=== PATIENT | female | born 1980 | race Caucasian/White ===

== ENCOUNTER 2016-09-26 15:39 | Emergency (ER) | payer BC ==
[~2016-09-26] VITALS: Ht 172.7 cm; Wt 104.6 kg
[~2016-09-26 15:39] MED LIST: ACEB200C; ACHD5005 PO; ALPR1T PO; AMOX500C2 PO; CARV12.53 PO; CARV3.122 PO; CARV6.252 PO; CEFD300C3 PO; CEPH-38 PO; CLIN300C3 PO; CLON0.5T3 PO; CLON1PAT14 TD; CLON1TAB3; CLON1TAB36 PO; CTLP20T PO; CTRZ10T PO; CYCL10TA9 PO; DILT240C86 PO; DIPH25TA82 PO; DIPH50CA33 PO; EST.625T PO; ESTR0.5T PO; ESTR0.9T; ESTR1TAB24 PO; FLUT16SP22; HYDR-1231 PO; HYDR-3583 PO; HYDR-3820 PO; HYDR-756 PO; HYOS0.1283 SL; ISOS30TA3 PO; LEVE500T6 PO; LEVE750T16 PO; LEVE750T5 PO; LEVO750T39 PO; LEVO750T9 PO; MELA1TAB11; METF500T8 PO; METO-274 PO; METO100T2 PO; METO200T32 PO; MIDO10TA6 PO; MONT10TA24 PO; MULT-35 PO; NITR-65 PO; OMEP20CA12 PO; ONDA4TAB2 PO; ONDA8TAB9 PO; ONDN4T PO; OXYC1TAB16 PO; PARO25TA PO; PHEN-633 PO; PHEN100C4 PO; PHEN200T27 PO; PHEN50TA PO; PRAM0.252 PO; PRD10T PO; PRD20T PO; PROM25TA14 PO; ROPI0.25 PO; RPN.25T PO; SALT TABLETS; SERT100T8 PO; SRTR100T PO; TRM50T PO; ZLP10T PO; ZOLP10TA5 PO; [UNRECOGNIZED DRUG - CODE] PO
[2016-09-26 15:53] VITALS: BP 115/85
--- NOTE | 2016-09-26 16:07 | ED Chest Pain ---
General Chief Complaint: Chest Pain Stated Complaint: CP,ELEVATED BLOOD PRESSURE Nursing Triage Note: pt reports cp and tachycardia starting at 1100 today. pt states she is in the process scheduling a 3rd ablation. Pt reports she took an extra beta tereso at home with no relief. Nursing Sepsis Screen: No Definite Risk Source: patient Exam Limitations: no limitations (FRANCA ANGUIANO MD) History of Present Illness Time seen by provider: 16:04 Initial Comments The patient is a 36-year-old white female from [place]. She presents today with complaints of tachycardia. There is also chest pain associated with it. She has had 24 previous visits to this institution. [facility] reveals medications from 29 providers over the past 11 months. These were filled at 10 different pharmacies. The locations ranged from [facility] and also [place] to [place] [facility]. Medications included benzodiazepines and hydrocodone and oxycodone multiply. From previous visits here she is known to have chronic sinus tachycardia. She allegedly takes beta blockers. (FRANCA ANGUIANO MD) Initial Comments 22 03-. Patient requesting to see a provider because she would need something to bring the heart rate down. I entered the room and the patient states that she will need an IV started so that she can have IV fluids and beta tereso. She took an oral beta tereso at home extra 50 mg dose of metoprolol which did not help. I advised that we would check labs first because she is a difficult stick. She states "well if you're not going to do anything just discharge me". I asked who the patient's gold prospector was so that I could discuss the case with him and she states "well he is not in this week". I then again asked who he was so that I could discuss the case with his nurse to which she replies "I don't want to deal with this, just discharge me" (ROSI MCGOWAN APRN) Allergies and Home Medications Allergies Coded Allergies: fludrocortisone (Unverified Allergy, Severe, CHF, 03/05/10) codeine (Unverified Allergy, Mild, 01/03/09) dicyclomine (Unverified Allergy, Mild, RASH, 03/05/10) erythromycin base (Unverified Allergy, Mild, 01/03/09) iodine (Unverified Allergy, Mild, 01/03/09) ketorolac (Unverified Allergy, Mild, RASH, 03/05/10) metoclopramide (Unverified Allergy, Mild, 01/03/09) pneumococcal vaccine (Unverified Allergy, Mild, 01/15/09) prochlorperazine (Unverified Allergy, Mild, 01/03/09) pseudoephedrine (Unverified Allergy, Mild, 01/15/09) dicyclomine HCl (Unverified Allergy, Unknown, 01/13/15) ibuprofen (Unverified Allergy, Unknown, 01/13/15) ketorolac tromethamine (Unverified Allergy, Unknown, 01/13/15) metoclopramide HCl (Unverified Allergy, Unknown, 01/13/15) prochlorperazine edisylate (Unverified Allergy, Unknown, 01/13/15) prochlorperazine maleate (Unverified Allergy, Unknown, 01/13/15) tramadol (Unverified Allergy, Unknown, 01/13/15) Home Medications Clonazepam 0.5 Mg Tablet, 0.5 MG PO BID PRN for ANXIETY, (Reported) Cyclobenzaprine HCl 10 Mg Tablet, 10 MG PO BID PRN for MUSCLE SPASMS, (Reported) Diltiazem HCl 180 Mg Capsule.er, 180 MG PO BID, (Reported) Diltiazem HCl 120 Mg Cap.er.12h, 120 MG PO DAILY, (Reported) Estradiol 0.5 Mg Tablet, 0.5 MG PO HS, (Reported) Hydrocodone/Acetaminophen 1 Each Tablet, 1 EACH PO Q6H PRN for ABDOMINAL PAIN, # 12 Ref 0 Prescribed by: MARIO ALBERTO RICHMOND on 03/09/16 0438 Metoprolol Succinate 100 Mg Tab.er.24h, 100 MG PO HS, (Reported) Montelukast Sodium 10 Mg Tablet, 10 MG PO HS, (Reported) Multivitamin 1 Each Tablet, 1 TAB PO DAILY, (Reported) Omeprazole 20 Mg Capsule.dr, 20 MG PO HS, (Reported) Paroxetine HCl 25 Mg Tab.er.24h, 25 MG PO HS, (Reported) Prednisone 10 Mg Tab, 40 MG PO DAILY, #12 Prescribed by: POLLO FORD on 01/26/16 1339 Promethazine HCl 25 Mg Tablet, 25 MG PO Q6H PRN for NAUSEA/VOMITING, #10 Ref 0 Prescribed by: MARIO ALBERTO RICHMOND on 03/09/16 0438 Ropinirole HCl 0.25 Mg Tablet, 0.25 MG PO HS, (Reported) Zolpidem Tartrate 10 Mg Tablet, 10 MG PO HS PRN for SLEEP, (Reported) Past Vygfivd-Bfgvqu-Oxfrqk Hx Patient Social History Recent Foreign Travel: No Contact w/Someone Who Travel: No Recent Infectious Disease Expo: No Recent Hopitalizations: No (FRANCA ANGUIANO MD) Immunizations Up To Date Tetanus Booster (TDap): Less than 5yrs Date of Pneumonia Vaccine: Jul 07, 2006 Date of Influenza Vaccine: Apr 06, 2013 (FRANCA ANGUIANO MD) Seasonal Allergies Seasonal Allergies: No (FRANCA ANGUIANO MD) Surgeries HX Surgeries: Yes (LEFT SHOULDER, ablation) Surgeries: Adenoidectomy, Appendectomy, Gallbladder, Hysterectomy, Oophorectomy , Orthopedic, Tonsillectomy (FRANCA ANGUIANO MD) Respiratory Hx Respiratory Disorders: Yes Respiratory Disorders: Asthma (FRANCA ANGUIANO MD) Cardiovascular Hx Cardiac Disorders: Yes (SVT-ablation) Cardiac Disorders: Irregular Heartbeat, Syncope (FRANCA ANGUIANO MD) Neurological Hx Neurological Disorders: No (FRANCA ANGUIANO MD) Reproductive System Hx Reproductive Disorders: No Sexually Transmitted Disease: No HIV/AIDS: No Female Reproductive Disorders: Endometriosis MD PHYSICIAN DERMATOLOGIST History: Hysterectomy (FRANCA ANGUIANO MD) Genitourinary Hx Genitourinary Disorders: No Genitourinary Disorders: Kidney Infection, Bladder Infection, Kidney Stones, UTI-Chronic (FRANCA ANGUIANO MD) Gastrointestinal Hx Gastrointestinal Disorders: Yes (ULCERATIVE COLITIS) Gastrointestinal Disorders: Chronic Diarrhea (FRANCA ANGUIANO MD) Musculoskeletal Hx Musculoskeletal Disorders: Yes (SRAVANTHI-DANLOS, DYSAUTONOMIA, RESTLESS LEG SYNDROME) (FRANCA ANGUIANO MD) Endocrine Hx Endocrine Disorders: No Endocrine Disorders: Diabetes, Non-Insulin dep (FRANCA ANGUIANO MD) HEENT HX ENT Disorders: Yes (DENTAL PROBLEMS) (FRANCA ANGUIANO MD) Cancer Hx Cancer: No (FRANCA ANGUIANO MD) Psychosocial Hx Psychiatric Problems: Yes (EXTENSIVE PSYCH ISSUES) Behavioral Health Disorders: Anxiety, PTSD, Depression (FRANCA AGNUIANO MD) Integumentary HX Skin/Integumentary Disorder: No (FRANCA ANGUIANO MD) Blood Transfusions Hx Blood Disorders: No Adverse Reaction to a Blood Tr: No (FRANCA ANGUIANO MD) Family Medical History Significant Family History: No Pertinent Family Hx, Diabetes, Hypertension Family Medial History: Family history: Arthritis 03 FATHER Family history: Diabetes mellitus 09 SISTER Family history: Osteoporosis 03 FATHER (GOUT) Headache 03 FATHER Infertile 03 MOTHER (FIRST CHILD WAS A STILL ) Kidney disease 03 FATHER (CHRONIC KIDNEY STONES) Psychotic disorder 09 SISTER No Family History of: Abdominal aortic aneurysm [place]'s disease Alcoholism Aphasia Cancer Cancer of colon Cataract Chest pain Congenital heart disease Congestive heart failure Cystic fibrosis Dementia Dysphagia Family history: Allergy Family history: Alzheimer's disease Family history: Asthma Family history: Breast disease Family history: Cardiovascular disease Family history: Coronary thrombosis Family history: Gastrointestinal disease Family history: Glaucoma Family history: Hypertension Family history: Thyroid disorder Hearing loss Heart disease Hereditary disease History of - anemia History of - disorder History of - respiratory disease History of drug abuse Human immunodeficiency virus (HIV) seropositivity Hypercholesterolemia Myocardial infarction Parkinson's disease Prostate cancer Stroke Tuberculosis Visual impairment (FRANCA ANGUIANO MD) Family Medial History: Family history: Arthritis 03 FATHER Family history: Diabetes mellitus 09 SISTER Family history: Osteoporosis 03 FATHER (GOUT) Headache 03 FATHER Infertile 03 MOTHER (FIRST CHILD WAS A STILL ) Kidney disease 03 FATHER (CHRONIC KIDNEY STONES) Psychotic disorder 09 SISTER No Family History of: Abdominal aortic aneurysm [place]'s disease Alcoholism Aphasia Cancer Cancer of colon Cataract Chest pain Congenital heart disease Congestive heart failure Cystic fibrosis Dementia Dysphagia Family history: Allergy Family history: Alzheimer's disease Family history: Asthma Family history: Breast disease Family history: Cardiovascular disease Family history: Coronary thrombosis Family history: Gastrointestinal disease Family history: Glaucoma Family history: Hypertension Family history: Thyroid disorder Hearing loss Heart disease Hereditary disease History of - anemia History of - disorder History of - respiratory disease History of drug abuse Human immunodeficiency virus (HIV) seropositivity Hypercholesterolemia Myocardial infarction Parkinson's disease Prostate cancer Stroke Tuberculosis Visual impairment (ROSI MCGOWAN APRN) Physical Exam Vital Signs Vital Sign - Last 12Hours 09/26/16 09/26/16 15:53 16:00 Temp 97.3 Pulse 127 Resp 20 B/P (MAP) 115/85 Pulse Ox 96 O2 Delivery Room Air (ROSI MCGOWAN APRN) Vital Signs Capillary Refill : Less Than 3 Seconds (FRANCA ANGUIANO MD) Progress/Results/Core Measures Results/Orders Lab Results Laboratory Tests Test 09/26/16 15:54 Range/Units White Blood Count 9.6 4.3-11.0 10^3/uL Red Blood Count 5.32 4.35-5.85 10^6/uL Hemoglobin 12.7 11.5-16.0 G/DL Hematocrit 40 35-52 % Mean Corpuscular Volume 74 L 80-99 FL Mean Corpuscular Hemoglobin 24 L 25-34 PG Mean Corpuscular Hemoglobin Concent 32 32-36 G/DL Red Cell Distribution Width 15.3 H 10.0-14.5 % Platelet Count 376 130-400 10^3/uL Mean Platelet Volume 9.5 7.4-10.4 FL Neutrophils (%) (Auto) 64 42-75 % Lymphocytes (%) (Auto) 27 12-44 % Monocytes (%) (Auto) 6 0-12 % Eosinophils (%) (Auto) 2 0-10 % Basophils (%) (Auto) 0 0-10 % Neutrophils # (Auto) 6.2 1.8-7.8 X 10^3 Lymphocytes # (Auto) 2.6 1.0-4.0 X 10^3 Monocytes # (Auto) 0.6 0.0-1.0 X 10^3 Eosinophils # (Auto) 0.2 0.0-0.3 10^3/uL Basophils # (Auto) 0.0 0.0-0.1 10^3/uL Sodium Level 139 135-145 MMOL/L Potassium Level 3.7 3.6-5.0 MMOL/L Chloride Level 100 98-107 MMOL/L Carbon Dioxide Level 26 21-32 MMOL/L Anion Gap 13 5-14 MMOL/L Blood Urea Nitrogen 10 7-18 MG/DL Creatinine 0.79 0.60-1.30 MG/DL Estimat Glomerular Filtration Rate > 60 BUN/Creatinine Ratio 13 Glucose Level 128 H 70-105 MG/DL Calcium Level 9.5 8.5-10.1 MG/DL Total Bilirubin 0.2 0.1-1.0 MG/DL Aspartate Amino Transf (AST/SGOT) 19 5-34 U/L Alanine Aminotransferase (ALT/SGPT) 28 0-55 U/L Alkaline Phosphatase 68 40-136 U/L Troponin I < 0.30 <0.30 NG/ML Total Protein 7.6 6.4-8.2 G/DL Albumin 4.0 3.2-4.5 G/DL (ROSI MCGOWAN APRN) Vital Signs/I&O Vital Sign - Last 12Hours 09/26/16 09/26/16 15:53 16:00 Temp 97.3 Pulse 127 Resp 20 B/P (MAP) 115/85 Pulse Ox 96 O2 Delivery Room Air (ROSI MCGOWAN APRN) Blood Pressure Mean: 95 Departure Impression Impression: Primary Impression: Left against medical advice Disposition: 07 AGAINST MEDICAL ADVICE Condition: Against Medical Advice Departure-Patient Inst. Referrals: NO,LOCAL PHYSICIAN (PCP/Family) Primary Care Physician FRANCA ANGUIANO MD Sep 26, 2016 16:07 ROSI MCGOWAN APRN Sep 26, 2016 16:11
[2016-09-26] MEDS ORDERED: DILT180C82 PO (16:11)
[2016-09-26] MEDS ORDERED: DILT120C10 PO (16:11)
[2016-09-26 16:12] LABS: BASOPHILS % (AUTO) 0 % (0-10); EOSINOPHILS # (AUTO) 0.2 10^3/uL (0.0-0.3); EOSINOPHILS % (AUTO) 2 % (0-10); LYMPHOCYTES # (AUTO) 2.6 X 10^3 (1.0-4.0); LYMPHOCYTES % (AUTO) 27 % (12-44); MEAN CORPUSCULAR HEMOGLOBIN 24 PG (25-34); MEAN CORPUSCULAR HGB CONC 32 G/DL (32-36); MEAN CORPUSCULAR VOLUME 74 FL (80-99); MEAN PLATELET VOLUME 9.5 FL (7.4-10.4); MONOCYTES # (AUTO) 0.6 X 10^3 (0.0-1.0); MONOCYTES % (AUTO) 6 % (0-12); NEUTROPHILS # (AUTO) 6.2 X 10^3 (1.8-7.8); NEUTROPHILS % (AUTO) 64 % (42-75); PLATELET COUNT 376 10^3/uL (130-400); RED BLOOD COUNT 5.32 10^6/uL (4.35-5.85); RED CELL DISTRIBUTION WIDTH 15.3 % (10.0-14.5); WHITE BLOOD COUNT 9.6 10^3/uL (4.3-11.0)
[2016-09-26 16:32] LABS: ALANINE AMINOTRANSFERASE 28 U/L (0-55); ANION GAP 13 MMOL/L (5-14); ASPARTATE AMINO TRANSFERASE 19 U/L (5-34); BILIRUBIN,TOTAL 0.2 MG/DL (0.1-1.0); BLOOD UREA NITROGEN 10 MG/DL (7-18); BUN/CREATININE RATIO 13; CALCIUM 9.5 MG/DL (8.5-10.1); CARBON DIOXIDE 26 MMOL/L (21-32); CHLORIDE 100 MMOL/L (98-107); CREATININE SERUM 0.79 MG/DL (0.60-1.30); GFR ESTIMATED > 60; GLUCOSE 128 MG/DL (70-105); POTASSIUM 3.7 MMOL/L (3.6-5.0); SODIUM 139 MMOL/L (135-145); TOTAL PROTEIN 7.6 G/DL (6.4-8.2)
[2016-09-26 16:38] LABS: TROPONIN I < 0.30 NG/ML (<0.30)
--- OUTSIDE RECORDS SUMMARY | 2016-09-29 10:16 | XMS REPORT | CCD ---
Author Author JASKARAN SNOWDEN Unknown Address [address] [address] [place], [place] [id number] Care Team Providers Care Safety And Security Manager Name Role Phone LAUREN GARG MD Attphys LAUREN GARG MD Prisurg Vital Signs Unknown or Not Available. Allergies Allergy Code Allergy Type Reaction Status ERYTHROMYCIN 4053 Drug allergy Active COMPAZINE 474496 Drug allergy Active NSAID 0 Drug allergy Active IODINE 5933 Drug allergy Active CODEINE 2670 Drug allergy Active REGLAN 9230 Drug allergy Active Procedures Procedure Code Procedure Type Date CT ABD AND PELVIS W/O CONTRAST 291212738 SNOMED CT 2015 CULTURE URINE 152254535 SNOMED CT 02/15/2016 RAPID DRUG SCREEN 265445508 SNOMED CT 02/15/2016 UA ROUTINE C&S IF IND 323269572 SNOMED CT 02/15/2016 C REACTIVE PROTEIN 93489769 SNOMED CT 02/15/[address] 02/15/[address] 02/15/2016 COMPREHENSIVE METABOLIC PANEL 079076508 SNOMED CT 2015 CBC W/ AUTO DIFF (RFLX MAN DIFF IF IND) 2592420 SNOMED CT 02/15/2016 ^CULTURE AEROBIC ID [id number] SNOMED CT 02/15/2016 ^CULTURE AEROBIC ID [id number] SNOMED CT 02/15/2016 ^SENSITIVITY 734087530 SNOMED CT 02/15/2016 ^CULTURE URINE IDENTIFICATION 825386014 SNOMED CT 2015 ^UA WITH MICRO 749199290 SNOMED CT 02/15/2016 ^CBC W/AUTO DIFF 9368854 SNOMED CT 02/15/2016 History of Immunizations Unknown or Not Available. Problems Unknown or Not Available. Results COMPREHENSIVE METABOLIC PANEL - Collect Date/Time: 02/15/2016 22:15 Test Name Code Test Result Test Units Test Ref Range GLUCOSE 2345-7 115 MG/DL L=70 H=100 SODIUM 2951-2 141 MEQ/L L=135 H=148 POTASSIUM 2823-3 4.3 MEQ/L L=3.5 H=5.3 CHLORIDE 2075-0 106 MEQ/L L=96 H=110 CO2 2028-9 21 MEQ/L L=22 H=29 BUN 3094-0 12 MG/DL L=8 H=22 CREATININE 2160-0 0.8 MG/DL L=0.6 H=1.6 SGOT/AST 1920-8 33 IU/L L=10 H=40 SGPT/ALT 1742-6 52 IU/L L=8 H=54 ALK PHOS 6768-6 78 IU/L L=35 H=115 TOTAL PROTEIN 2885-2 7.4 G/DL L=5.5 H=8.5 ALBUMIN 1751-7 4.1 G/DL L=3.1 H=5.4 TOTAL BILI 1975-2 0.2 MG/DL L=0.0 H=1.5 CALCIUM 53009-6 9.3 MG/DL L=8.2 H=10.6 AGE 35 yrs GFR NonAA 83 GFR AA 101 eGFR >60 N/A eGFR AA* >60 N/A LIPASE - Collect Date/Time: 02/15/2016 22:15 Test Name Code Test Result Test Units Test Ref Range LIPASE 3040-3 47 U/L L=8 H=78 RAPID DRUG SCREEN - Collect Date/Time: 02/15/2016 22:16 Test Name Code Test Result Test Units Test Ref Range Cannabinoids (THC) NEGATIVE N/A NEG: < 50 ng/ ml Phencyclidine (PCP) NEGATIVE N/A NEG: < 25 ng/ ml Cocaine NEGATIVE N/A NEG: < 300 ng/ml Methamphetamine NEGATIVE N/A NEG: < 1000 ng/ml Opiates NON-NEGATIVE N/A NEG: < 300 ng/ml Amphetamine NEGATIVE N/A NEG: < 1000 ng/ml Benzodiazepines NON-NEGATIVE N/A NEG: < 300 ng/ ml Tricyclic Antidepres NON-NEGATIVE N/A NEG: < 300 ng/ml Methadone NEGATIVE N/A NEG: < 300 ng/ml Barbiturates NEGATIVE N/A NEG: < 200 ng/ml Oxycodone NEGATIVE N/A NEG: < 100 ng/ml Propoxyphene (PPX) NEGATIVE N/A NEG: < 300 ng/ ml CBC W/ AUTO DIFF (RFLX MAN DIFF IF IND) - Collect Date/Time: 02/15/2016 22:15 Test Name Code Test Result Test Units Test Ref Range WBC 92416-2 11.9 TH/CMM L=4.5 H=10.8 RBC 789-8 5.07 ML/CMM L=4.20 H=5.40 HGB 718-7 11.1 G/DL L=12.0 H=16.0 HCT 4544-3 36.9 % L=37.0 H=47.0 MCV 73 FL L=81 H=99 MCH 21.9 PG L=27.0 H=33.0 MCHC 30.1 G/DL L=31.0 H=36.0 RDW SD 39 FL L=36 H=50 RDW CV 16.3 % L=0.0 H=14.8 MPV 9.1 FL L=9.3 H=12.5 PLT 777-3 423 TH/CMM L=130 H=440 NRBC# 0.00 TH/CMM L=0.00 H=0.00 NRBC% 0.0 /100WBC L=0.0 H=2.0 %NEUT 64.7 % %LYMP 25.1 % %MONO 7.6 % %EOS 1.4 % %BASO 0.3 % #NEUT 7.68 TH/CMM L=2.10 H=8.20 #LYMP 2.98 TH/CMM L=0.90 H=5.20 #MONO 0.90 TH/CMM L=0.16 H=1.00 #EOS 0.17 TH/CMM L=0.00 H=0.80 #BASO 0.04 TH/CMM L=0.00 H=0.20 MANUAL DIFF NOT IND N/A UA ROUTINE C&S IF IND - Collect Date/Time: 02/15/2016 22:16 Test Name Code Test Result Test Units Test Ref Range COLOR YELLOW N/A NL: YELLOW APPEARANCE HAZY N/A NL: CLEAR SPEC GRAV 1.015 N/A NL: 1.002 - 1.022 pH 7.0 N/A NL: 5 - 9 PROTEIN NEGATIVE N/A NL: NEGATIVE mg/dl GLUCOSE NEGATIVE N/A NL: NEGATIVE mg/dl KETONE NEGATIVE N/A NL: NEGATIVE mg/dl BILIRUBIN NEGATIVE N/A NL: NEGATIVE BLOOD SMALL N/A NL: NEGATIVE NITRITE POSITIVE N/A NL: NEGATIVE LEUK SCREEN TRACE N/A NL: NEGATIVE MICRO INDICATED? SEE BELOW N/A WBC/HPF RARE N/A NL: NEGATIVE RBC/HPF 0-5 N/A NL: NEGATIVE CASTS/LPF NEGATIVE N/A NL: NEGATIVE CRYSTALS NEGATIVE N/A NL: NEGATIVE MUCOUS THRDS NEGATIVE N/A NL: NEGATIVE BACTERIA 2++ N/A NL: NEGATIVE EPITH CELLS FEW SQUAMOUS N/A NL: NEGATIVE TRICHOMONAS NEGATIVE N/A NL: NEGATIVE YEAST NEGATIVE N/A NL: NEGATIVE CULT SET UP? YES N/A C REACTIVE PROTEIN - Collect Date/Time: 02/15/2016 22:15 Test Name Code Test Result Test Units Test Ref Range C REACTIVE PROTEIN 1988-5 1.9 MG/DL L=0.0 H= 1.0 AMYLASE - Collect Date/Time: 02/15/2016 22:15 Test Name Code Test Result Test Units Test Ref Range AMYLASE 1798-8 54 IU/L L=25 H=125 Active Medications Unknown or Not Available. Medications Administered During Visit Unknown or Not Available. Encounters Encounter Diagnosis Diagnosis Code Start Date Infectious gastroenteritis [id number] 02/15/2016 Social History Smoking Status Code Start Date End Date Never smoker [id number] Patient Decision Aids Unknown or Not Available. Discharge Instructions You were admitted to [facility] on 02/15/2016 21:34 with a principal diagnosis of Infectious gastroenteritis and colitis, unspecified You had the following tests done: AMYLASE C REACTIVE PROTEIN CBC W/ AUTO DIFF (RFLX MAN DIFF IF IND) COMPREHENSIVE METABOLIC PANEL LIPASE RAPID DRUG SCREEN UA ROUTINE C &S IF IND You were discharged from [facility] on 02/16/2016 00:57 Should you have any questions prior to discharge, please contact a member of your healthcare team. If you have left the hospital and have any questions, please contact your primary care physician. Chief Complaint and Reason For Visit Chief Complaint Date of Onset ABD PAIN NAUSEA VOMITING Function Status Unknown or Not Available. Plan of Care Unknown or Not Available. Referral/Transition of Care Unknown or Not Available.
--- OUTSIDE RECORDS SUMMARY | 2016-09-29 10:16 | XMS REPORT | Continuity of Care Document ---
Author Author [facility] Organization [facility] Address Unknown Phone Unavailable Care Team Providers Care Engine Testing Supervisor Name Role Phone No Pcp, Na PCP Unavailable Source Comments Some departments are not documenting in the electronic medical record. If you do not see the information that you expected, contact Release of Information in the Health Information Management department at [phone] for further assistance in locating additional records.[facility] Active Allergies and Adverse Reactions Allergen Noted Date Severity Reactions Comments Bentyl 07/31/2015 Low UNKNOWN Codeine 07/31/2015 Low UNKNOWN Compazine 07/31/2015 Low UNKNOWN Erythromycin 07/31/2015 Low NAUSEA ONLY Florinef 07/31/2015 Low UNKNOWN Pt can take Prednisone; has tolerated many times in the past Iodine 07/31/2015 Low UNKNOWN Reglan 07/31/2015 Low UNKNOWN Sudafed 07/31/2015 Low UNKNOWN Toradol 07/31/2015 Low UNKNOWN Tramadol 07/31/2015 Medium RASH Current Medications Prescription Sig. Disp. Refills Start End Date Status Date estradiol (ESTRACE) 0.5 Take 0.5 mg by mouth at Active mg tablet bedtime daily. montelukast (SINGULAIR) Take 10 mg by mouth every Active 10 mg tablet morning. rOPINIRole (REQUIP) 0.25 Take 0.25 mg by mouth at Active mg tablet bedtime daily. PAROXETINE HCL (PAXIL CR Take 20 mg by mouth Active PO) daily. OMEPRAZOLE (PRILOSEC PO) Take by mouth daily. Active ferrous sulfate 325 mg Take 325 mg by mouth Active (65 mg iron) tablet daily. Take 1daily for 1 week, twice daily for 1 week, then 3 times daily. Take w/food. If GI symptoms, cut back to once or twice daily as tolerated. CYCLOBENZAPRINE HCL Take 20 mg by mouth as Active (FLEXERIL PO) Needed. zolpidem (AMBIEN) 5 mg Take 1 Tab by mouth at 30 Tab 1 11/28/19 Active tablet bedtime as needed for 16 Sleep. oxyCODONE/acetaminophen Take 1 Tab by mouth every 20 Tab 0 05/17/20 Active (PERCOCET) 5/325 mg 6 hours as needed for 16 tablet Pain diltiazem CD (CARDIZEM Take 120 mg by mouth Active CD) 120 mg capsule daily. diltiazem CD (CARDIZEM One tab po every am, one Active CD) 180 mg capsule tab po every pm with Cardizem CD 120 every lunch metoprolol XL (TOPROL XL) Take 100 mg by mouth Active 100 mg extended release twice daily. tablet metoprolol tartrate Take 1 Tab by mouth twice 60 Tab 2 06/10/20 Active (LOPRESSOR) 50 mg tablet daily as needed (take if 16 symptoms occur after taking already scheduled Toprol XL). Active Problems Problem Noted Date S/P adenoidectomy 09/11/2015 S/P appendectomy 09/11/2015 S/P cholecystectomy 09/11/2015 S/P tonsillectomy 09/11/2015 History of arthroplasty of left knee 09/11/2015 S/P hysterectomy 09/11/2015 POTS (postural orthostatic tachycardia syndrome) 09/11/2015 Neurologic cardiac syncope 09/11/2015 Overview: 09/11/15: Tilt study positive-hypotension (60 systolic), junctional at 48, near LOC Inappropriate sinus tachycardia 08/10/2015 Dysautonomia Restless leg syndrome Post traumatic stress disorder Hyperlipidemia Resolved Problems Problem Noted Date Resolved Date H/O hypotension 10/12/2015 Allergic rhinitis 10/12/2015 Most Recent Encounters Date Type Specialty Providers Description 09/23/2016 Telephone Cardiology Claudia Chávez RN Referral - [place] 09/16/2016 Telephone Cardiology Bri Jasso, General Question - [place] RN denied help 09/04/2016 Documentation Cardiology Jennifer Lazo Referral - [facility] 09/03/2016 Documentation Cardiology Jennifer Lazo Referral - at [facility] 09/02/2016 Telephone Cardiology Claudia Chávez RN 08/27/2016 Orders Only Cardiology Valentino Gil RN Mixed hyperlipidemia (Primary Dx); Inappropriate sinus tachycardia; POTS (postural orthostatic tachycardia syndrome); Neurologic cardiac syncope; Dysautonomia 08/22/2016 Telephone Cardiology Aure Shahid LPN Referral - Needs referral to [facility] 08/19/2016 Telephone Cardiology Bryanna Ortega RN Referral - pain management 08/16/2016 Telephone Cardiology Jennifer Lazo Appointment - Referral faxed 08/15/2016 Telephone Cardiology Aure Shahid LPN Referral - [facility] 08/15/2016 Documentation Cardiology Adriana Baker RN Referral - Pt requesting referral to pain spec in [place] 07/23/2016 Surgery Cardiology Ana Yates MD Canceled Insert Permanent Pacemaker and Atrial and Ventricular Leads 07/23/2016 Surgery Cardiology Ana Yates MD Canceled Sinus Node Radiofrequency Ablation 07/21/2016 Telephone Cardiology Yoli Mackenzie RN Rapid Heart Rate - "unable to stand up" 07/17/2016 Documentation Cardiology Jennifer Lazo Other - Referral to [facility]. Devon Norman in [facility] 07/17/2016 Documentation Cardiology Lindsay Livingston RN Other - Plan of care 07/11/2016 Telephone Cardiology Aure Shahid LPN Follow-up Phone Call Social History Tobacco Use Types Packs/Day Years Used Date Never Smoker Alcohol Use Drinks/Week oz/Week Comments No 0 Standard 0.0 drinks or equivalent Last Filed Vital Signs Vital Sign Reading Time Taken Blood Pressure 108/78 05/17/2016 1:39 PM MARKETING MGR Pulse 96 05/17/2016 1:39 PM MARKETING MGR Temperature 36.8 C (98.2 F) 02/08/2016 10:11 AM CDT Respiratory Rate - - Height 1.753 m (5' 9") 05/17/2016 1:39 PM MARKETING MGR Weight 106.323 kg (234 lb 6.4 05/17/2016 1:39 PM MARKETING MGR oz) Body Mass Index 34.6 05/17/2016 1:39 PM MARKETING MGR Oxygen Saturation 98% 02/08/2016 6:51 AM CDT Plan of Care Health Maintenance Due Date Last Done Comments Physical (Comprehensive) 1989 Exam Pertussis Vaccine 1993 Tetanus Vaccine 1999 Cervical Cancer Screening 2003 Influenza Vaccine 03/07/2017 Results from Last 3 Months Not on file
--- OUTSIDE RECORDS SUMMARY | 2016-09-29 10:17 | XMS REPORT | Continuity of Care Document ---
Author Author [facility] Organization [facility] Address [facility] [address] [place] [id number] Phone Unavailable Support Name Relationship Address Phone ARNALDO PERALTA DO Caregiver [address] [place] [address] Unavailable RAAD RALPH Next Of Kin [address] [place] [address] Insurance Providers Payer Name Policy Number Subscriber Name Relationship [facility] [id number] Valentin Ralph 18 Self / Same As Patient Advance Directives Directive Response Recorded Date/Time Do you have an Advanced Directive? No 10/01/15 4:16pm Advance Directives No 10/27/15 3:58pm Living Will No 10/27/15 3:58pm Power of Medical Editor for Health Care No 10/27/15 3:58pm Organ, Tissue, or Eye Donor Yes 12/27/15 7:21pm Do you have a signed organ donor card? No 10/27/15 3:58pm Chief Complaint and Reason for Visit Chief Complaint ABDOMINAL PAIN Reason for Visit [id number] Problems Active Problems Medical Problem Onset Date Status Chest pain Unknown Acute Gastroenteritis Unknown Acute Hematuria Unknown Acute Insect bite (nonvenomous) of right forearm, initial encounter Unknown Acute Kidney stone on left side Unknown Acute Left against medical advice Unknown Acute Left flank pain Unknown Acute Nausea and vomiting Unknown Acute Nonspecific chest pain Unknown Acute Palpitations Unknown Acute Postprocedural pain of extremity following cardiac catheterization Unknown Acute Precordial chest pain Unknown Acute Sinus drainage Unknown Acute Sinus tachycardia Unknown Acute Syncope Unknown Acute Tachycardia Unknown Acute Ulcerative colitis Unknown Acute Medications Current Home Medications Medication Dose Units Route Directions Days/Qty Instructions Start Date Ropinirole Hcl 0.25 Mg 0.25 Mg Oral Bedtime 09/17/15 Montelukast Sodium 10 Mg 10 Mg Oral Bedtime 09/17/15 Paroxetine Hcl 25 Mg 25 Mg Oral Bedtime 09/17/15 Estradiol 2 Mg 0.5 Mg Oral Bedtime 09/17/15 Metoprolol Succinate 100 Mg 150 Mg Oral Bedtime 10/23/15 Diltiazem Hcl 180 Mg 180 Mg Oral Twice A Day 09/21/16 Cyclobenzaprine Hcl (Flexeril*) 10 Mg 10 Mg Oral Twice A Day Clonazepam 0.5 Mg 0.5 Mg Oral Twice A Day 09/21/16 Hydrochlorothiazide 25 Mg 12.5 Mg Oral Daily 09/21/16 Diltiazem Hcl 120 Mg 120 Mg Oral Noon 09/21/16 Past Home Medications Medication Directions Ordered Status Metoprolol Succinate 200 Mg Tab.sr.24h, 200 Mg Oral Bedtime 09/17/15 Discontinued Metoprolol Tartrate 25 Mg Tab, 50 Mg Oral Daily 09/17/15 Discontinued Mesalamine 0.375 Gm Cap.sr.24h, 2 Cap Oral Daily 09/30/15 Discontinued Metoprolol Succinate 100 Mg Tab.sr.24h, 100 Mg Oral Daily 10/02/15 Discontinued Metoprolol Tartrate 100 Mg Tablet, 100 Mg Oral Twice A Day 10/02/15 Discontinued Tramadol Hcl 50 Mg Tablet, 50 Mg Oral Every 6 Hours 10/02/15 Discontinued Meloxicam 15 Mg Tablet, 15 Mg Oral Daily as needed for Pain 10/14/15 Discontinued Ondansetron* 4 Mg/Tab Tab.rapdis, 4 Mg Oral Every 6 Hours as needed for Nausea /Vomiting 10/14/15 Discontinued Metoprolol Tartrate 100 Mg Tablet, 100 Mg Oral Daily 10/23/15 Discontinued Mesalamine 0.375 Gm Cap.sr.24h, 0.375 Gm Oral Twice A Day 10/23/15 Discontinued Omeprazole 20 Mg Capsule.dr, 20 Mg Oral Every Morning 10/27/15 Discontinued Ondansetron* 4 Mg/Tab Tab.rapdis, 4 Mg Oral Every 6 Hours As Needed Nausea Discontinued Acetaminophen/Hydrocodone Bitart (Lortab 7.5-325 Tab*) 1 Tab Tablet, 1 Each Oral Every 6 Hrs As Needed For Pain 10/27/15 Discontinued Verapamil Hcl 40 Mg Tab, 40 Mg Oral Three Times A Day 11/01/15 Discontinued Diltiazem Hcl 120 Mg Cap.sr.24h, 120 Mg Oral Daily 12/07/15 Discontinued Ondansetron* 4 Mg/Tab Tab.rapdis, 4 Mg Oral Every 6 To 8 Hours As Needed as needed for Nausea 12/07/15 Discontinued Promethazine Hcl 25 Mg Tablet, 25 Mg Oral Every 6 Hours as needed for Nausea 12/27/15 Discontinued Promethazine Hcl 25 Mg Tablet, 25 Mg Oral 2-3 Times Daily for Nausea Discontinued Metoprolol Tartrate 100 Mg Tablet, 100 Mg Oral Twice A Day 01/02/16 Discontinued Metoprolol Tartrate (Lopressor*) 50 Mg Tab, 50 Mg Oral As Needed for High Heart Rate 01/02/16 Discontinued Acetaminophen/Hydrocodone Bitart (Lortab 5-325*) 1 Tab Tablet, 1 Each Oral Every 6 Hrs As Needed For Pain 01/02/16 Discontinued Ondansetron Hcl 4 Mg/5 Ml Solution, 4 Mg Oral Three Times A Day for Nausea/ Vomiting 02/15/16 Discontinued Mesalamine 0.375 Gm Cap.sr.24h, 0.375 Mg Oral Daily 02/25/16 Discontinued Ondansetron* 4 Mg/Tab Tab.rapdis, 8 Mg Oral Three Times A Day as needed for Nausea 02/25/16 Discontinued Phenazopyridine Hcl 200 Mg Tablet, 200 Mg Oral Three Times A Day 08/14/16 Discontinued Social History Social History Problem Response Recorded Date/Time Smoking Status Never smoker 10/27/2015 7:06pm Tobacco Use Denies Use 08/11/2012 10:08pm Alcohol Use none 09/21/2016 12:38am Drug Use none 09/21/2016 12:38am Sexual History Heterosexual 09/30/2015 8:47pm Query Response Start Date Stop Date Smoking Status Never smoker Hospital Discharge Instructions No hospital discharge instructions. Plan of Care Discharge Date 09/21/16 12:33am Condition at Discharge Stable Prescriptions See Medication Section Functional Status Query Response Date Recorded Patient Behavior Anxious September 21, 2016 12:06am Allergies, Adverse Reactions, Alerts Allergen Type Severity Reaction Status Last Updated PROCHLORPERAZINE EDISYLATE Adverse Reaction Unknown HALLUCINATIONS Active 06/16/16 PROMETHAZINE HCL Adverse Reaction Unknown supp. route only Active 06/16/16 DICYCLOMINE HCL Adverse Reaction Mild STOMACH CRAMPING Active 06/16/16 KETOROLAC TROMETHAMINE Allergy Mild RASH Active 06/16/16 NSAIDS (NON-STEROIDAL ANTI-INFLAMMA Allergy Unknown Active 06/16/16 Iodine Allergy Mild RASH Active 06/16/16 Codeine Allergy Unknown Active 06/16/16 Ibuprofen Allergy Mild RASH Active 06/16/16 Erythromycin base Allergy Mild RASH Active 06/16/16 Tramadol Allergy Mild RASH Active 06/16/16 Metoclopramide Allergy Unknown Active 06/16/16 [place] Allergy Intermediate HIVES Active 06/16/16 SHELLFISH DERIVED Allergy Unknown Active 06/16/16 Immunizations Name Given Type Hx Diphtheria, Pertussis, Tetanus Vaccination Up To Date Historical Hx Influenza Vaccination Yes Historical Hx Pneumococcal Vaccination No Historical Hx Tetanus, Diphtheria Vaccination Y within last 4 years Historical Vital Signs Acute Vital Signs Vital Response Date/Time Temperature (Fahrenheit) 97.8 degrees F (97.6 - 99.5) 09/21/2016 12:10am Temperature Source Temporal Artery 09/21/2016 12:10am Pulse Rate (adult) 116 bpm (60 - 90) 09/21/2016 12:25am Respiratory Rate 18 bpm (12 - 24) 09/21/2016 12:10am Blood Pressure 111/83 mm Hg 09/21/2016 12:25am O2 Sat by Pulse Oximetry 98 % (90 - 100) 09/21/2016 12:25am Oxygen Delivery Method 09/21/2016 12:25am Pain Location Body Site Modifier 08/14/2016 5:53am Height 5 ft 8 in Weight 250 lb Body Mass Index 38.0 kg/m^2 Results Laboratory Results Test Name Result Units Flags Reference Collection Date/Time Result Date/ Time Comments Urine Color YELLOW YELLOW 07/15/2016 7:10pm 07/15/2016 7:45pm Urine Appearance CLOUDY H CLEAR 07/15/2016 7:10pm 07/15/2016 7:45pm Urine Glucose (UA) NEGATIVE mg/dL NEGATIVE 07/15/2016 7:10pm 2016 7:45pm Urine Bilirubin NEGATIVE NEGATIVE 07/15/2016 7:10pm 07/15/2016 7: 45pm Urine Ketones NEGATIVE mg/dL NEGATIVE 07/15/2016 7:10pm 07/15/2016 7: 45pm Urine Specific [place] 1.010 1.010-1.025 07/15/2016 7:10pm 2016 7:45pm Urine Occult Blood 3+ (Large) H NEGATIVE 07/15/2016 7:10pm 07/15/2016 7:45pm URINE CULTURE ORDERED PER MEDICAL STAFF-APPROVED PROTOCOL FOR LAB. Urine pH 8.0 5.0-8.0 07/15/2016 7:10pm 07/15/2016 7:45pm Urine Protein NEGATIVE mg/dL NEGATIVE 07/15/2016 7:10pm 07/15/2016 7: 45pm Urine Urobilinogen 0.2 mg/dL E.U./dL 0.2-1.0 07/15/2016 7:10pm 2016 7:45pm Urine Nitrate NEGATIVE NEGATIVE 07/15/2016 7:10pm 07/15/2016 7:45pm Urine Leukocyte Esterase TRACE H NEGATIVE 07/15/2016 7:10pm 2016 7:45pm Urine RBC 50+ /hpf H 0 07/15/2016 7:10pm 07/15/2016 7:48pm Urine WBC 1-2 /hpf 0-4 07/15/2016 7:10pm 07/15/2016 7:48pm Urine Squamous Epithelial Cells 3-5 /hpf 0-1 07/15/2016 7:10pm 2016 7:48pm Urine Bacteria TRACE NEGATIVE 07/15/2016 7:10pm 07/15/2016 7:48pm Pending Laboratory Results Test Name Collection Date/Time Procedures Procedure Status Date Provider(s) Computed tomography of abdomen and pelvis without contrast Active 07/15/16 BELLE LE D.O. Computed tomography of abdomen and pelvis without contrast Active 08/14/16 DARLENE MEDRANO MD Encounters Encounter Location Arrival/Admit Date Discharge/Depart Date Attending Provider Departed Emergency [place] 09/21/16 12:08am 09/21/16 12:33am ARNALDO PERALTA DO Departed Emergency Room [place] 08/14/16 3:52am 08/14/16 7:10am DARLENE MEDRANO MD Departed Emergency Room [place] 07/15/16 6:49pm 07/15/16 8:10pm BELLE LE D.O. Recent Diagnosis
--- OUTSIDE RECORDS SUMMARY | 2016-09-29 10:18 | XMS REPORT | Continuity of Care Document ---
Author Author [facility] Organization [facility] Address [facility] [address] [place] [address] Phone Unavailable Support Name Relationship Address Phone LISETTE PERALTANATHAN DO Caregiver [address] [place] [address] Unavailable RAAD RALPH Next Of Kin [address] [place], [place] [id number] Insurance Providers Payer Name Policy Number Subscriber Name Relationship [facility] [id number] Valentin Ralph 18 Self / Same As Patient Advance Directives Directive Response Recorded Date/Time Do you have an Advanced Directive? No 10/01/15 4:16pm Advance Directives No 10/27/15 3:58pm Living Will No 10/27/15 3:58pm Health Care Proxy No 02/15/16 7:10pm Power of Portfolio Analyst for Health Care No 10/27/15 3:58pm Organ, Tissue, or Eye Donor Yes 12/27/15 7:21pm Do you have a signed organ donor card? No 10/27/15 3:58pm Chief Complaint and Reason for Visit Chief Complaint NAUSEA & VOMITING Reason for Visit Nausea and vomiting Problems Active Problems Medical Problem Onset Date Status Chest pain Unknown Acute Nausea and vomiting Unknown Acute Nonspecific chest pain Unknown Acute Palpitations Unknown Acute Postprocedural pain of extremity following cardiac catheterization Unknown Acute Precordial chest pain Unknown Acute Sinus tachycardia Unknown Acute Syncope [...] 100 Mg 150 Mg Oral Bedtime 10/23/15 Mesalamine 0.375 Gm 0.375 Gm Oral Twice A Day 10/23/15 Promethazine Hcl 25 Mg 25 Mg Oral Every 6 Hours as needed for Nausea 10 12/27/15 Ondansetron Hcl 4 Mg/5 Ml 4 Mg Oral Three Times A Day for Nausea/Vomiting 02/15/16 Past Home Medications Medication Directions Ordered Status [...] Tablet, 100 Mg Oral Daily 10/23/15 Discontinued Omeprazole 20 Mg Capsule.dr, 20 [...] Hrs As Needed For Pain 01/02/16 Discontinued Social History Social History Problem Response Recorded Date/Time Smoking Status Never smoker 10/27/2015 7:06pm Tobacco Use Denies Use 08/11/2012 10:08pm Alcohol Use none 02/15/2016 8:10pm Drug Use benzodiazapines synthetic narcotic 02/15/2016 8:10pm Sexual History Heterosexual 09/30/2015 8:47pm Query Response Start Date Stop Date Smoking Status Never smoker Hospital Discharge Instructions No hospital discharge instructions. Plan of Care Discharge Date 02/15/16 8:42pm Condition at Discharge Against Medical Advice Prescriptions See Medication Section Functional Status Query Response Date Recorded Patient Behavior Cooperative Appropriate February 15, 2016 7:20pm Allergies, Adverse Reactions, Alerts Allergen Type Severity Reaction Status Last Updated PROCHLORPERAZINE EDISYLATE Adverse Reaction Unknown HALLUCINATIONS Active 01/03/16 PROMETHAZINE HCL Adverse Reaction Unknown supp. route only Active 01/03/16 DICYCLOMINE HCL Adverse Reaction Mild STOMACH CRAMPING Active 01/03/16 KETOROLAC TROMETHAMINE Allergy Mild RASH Active 01/03/16 NSAIDS (NON-STEROIDAL ANTI-INFLAMMA Allergy Unknown Active 01/03/16 Iodine Allergy Mild RASH Active 01/03/16 Codeine Allergy Unknown Active 01/03/16 Ibuprofen Allergy Mild RASH Active 01/03/16 Erythromycin base Allergy Mild RASH Active 01/03/16 Tramadol Allergy Mild RASH Active 01/03/16 Metoclopramide Allergy Unknown Active 01/03/16 [place] Allergy Intermediate HIVES Active 01/03/16 SHELLFISH DERIVED Allergy Unknown Active 01/03/16 Immunizations Name Given Type Hx Diphtheria, Pertussis, Tetanus Vaccination Up To Date Historical Hx Influenza Vaccination Yes Historical Hx Pneumococcal Vaccination Yes Historical Vital Signs Acute Vital Signs Vital Response Date/Time Temperature (Fahrenheit) 98.4 degrees F (97.6 - 99.5) 02/15/2016 7:20pm Temperature Source Temporal Artery 02/15/2016 7:20pm Pulse Rate (adult) 91 bpm (60 - 90) 02/15/2016 7:20pm Respiratory Rate 16 bpm (12 - 24) 02/15/2016 7:20pm Blood Pressure 102/60 mm Hg 02/15/2016 7:20pm O2 Sat by Pulse Oximetry 96 % (90 - 100) 02/15/2016 7:20pm Oxygen Delivery Method 02/15/2016 7:20pm Pain Location Body Site Modifier 02/14/2016 11:26pm Pain Description Heaviness 01/07/2016 12:00pm Height 5 ft 8 in Weight 240 lb Body Mass Index 36.0 kg/m^2 Results Laboratory Results Test Name Result Units Flags Reference Collection Date/Time Result Date/ Time Comments White Blood Count 10.7 K/uL 4.8-10.8 12/07/2015 3:43pm 12/07/2015 3: 52pm Red Blood Count 4.87 M/uL 4.20-5.40 12/07/2015 3:43pm 12/07/2015 3: 52pm Hemoglobin 12.4 gm/dL 12.0-16.0 12/07/2015 3:43pm 12/07/2015 3:52pm Hematocrit 36.5 % L 37.0-47.0 12/07/2015 3:43pm 12/07/2015 3:52pm Mean Corpuscular Volume 74.9 fL L 81.0-99.0 12/07/2015 3:43pm 2015 3:52pm Mean Corpuscular Hemoglobin 25.4 pg L 27.0-31.0 12/07/2015 3:43pm 2015 3:52pm Mean Corpuscular Hemoglobin Concent 33.9 g/dL 30.0-37.0 12/07/2015 3: 43pm 12/07/2015 3:52pm Red Cell Distribution Width 15.1 % H 11.5-14.5 12/07/2015 3:43pm 2015 3:52pm Platelet Count 376 K/uL 130-400 12/07/2015 3:43pm 12/07/2015 3:52pm Mean Platelet Volume 8.6 fL 7.4-10.4 12/07/2015 3:43pm 12/07/2015 3: 52pm Neutrophils (%) (Auto) 71.6 % 42.2-75.2 12/07/2015 3:43pm 12/07/2015 3: 52pm Lymphocytes (%) (Auto) 22.2 % 20.5-51.1 12/07/2015 3:43pm 12/07/2015 3: 52pm Monocytes (%) (Auto) 4.0 % 1.7-9.3 12/07/2015 3:43pm 12/07/2015 3:52pm Eosinophils (%) (Auto) 1.8 % 0-3 12/07/2015 3:43pm 12/07/2015 3:52pm Basophils (%) (Auto) 0.3 % 0.0-1.0 12/07/2015 3:43pm 12/07/2015 3:52pm Neutrophils # (Auto) 7.7 K/uL H 2.0-6.9 12/07/2015 3:43pm 12/07/2015 3: 52pm Lymphocytes # (Auto) 2.4 K/uL 1.2-3.4 12/07/2015 3:43pm 12/07/2015 3: 52pm Monocytes # (Auto) 0.4 K/uL 0.1-0.6 12/07/2015 3:43pm 12/07/2015 3: 52pm Eosinophils # (Auto) 0.2 K/uL 0.0-0.7 12/07/2015 3:43pm 12/07/2015 3: 52pm Basophils # (Auto) 0.0 K/uL 0.0-0.2 12/07/2015 3:43pm 12/07/2015 3: 52pm Random Glucose 105 mg/dL 70-110 12/07/2015 3:43pm 12/07/2015 4:32pm Blood Urea Nitrogen 11 mg/dL 7-18 12/07/2015 3:43pm 12/07/2015 4:32pm Creatinine 0.9 mg/dL 0.55-1.02 12/07/2015 3:43pm 12/07/2015 4:32pm Sodium Level 139 mEq/L 136-145 12/07/2015 3:43pm 12/07/2015 4:32pm Potassium Level 4.0 mEq/L 3.5-5.0 12/07/2015 3:43pm 12/07/2015 4:32pm Chloride Level 103 mEq/L 98-107 12/07/2015 3:43pm 12/07/2015 4:32pm Carbon Dioxide Level 25.3 mEq/L 21-32 12/07/2015 3:43pm 12/07/2015 4: 32pm Calcium Level 8.9 mg/dL 8.8-10.5 12/07/2015 3:43pm 12/07/2015 4:32pm Magnesium Level 1.8 mg/dL 1.8-2.4 12/07/2015 3:43pm 12/07/2015 4:32pm Total Creatine Kinase 45 U/L 26-192 12/07/2015 3:43pm 12/07/2015 4: 32pm Creatine Kinase MB < 0.5 NG/ML 0-3.6 12/07/2015 3:43pm 12/07/2015 4: 32pm Myoglobin 16.0 NG/ML 10.5-92.5 12/07/2015 3:43pm 12/07/2015 4:32pm Troponin I < 0.02 NG/ML 0.0-0.2 12/07/2015 3:43pm 12/07/2015 4:32pm Glomerular Filtration Rate Calc 76.6 mL/min 12/07/2015 3:43pm 2015 4:32pm Pending Laboratory Results Test Name Collection Date/Time Pending Microbiology Results Procedure Source Collection Date/Time Procedures Procedure Status Date Provider(s) Portable x-ray of chest Active 12/07/15 SAMUEL WHITE DO X-ray of chest, PA and lateral views Active 12/31/15 LAY CAMPBELL MD Portable x-ray of chest Active 01/02/16 SHILA PERRY MD Portable x-ray of chest Active 01/03/16 SHILA PERRY MD Computed tomography angiography of chest without then with contrast Active SHILA PERRY MD Computed tomography of abdomen and pelvis without contrast Completed ARNALDO PERALTA DO Encounters Encounter Location Arrival/Admit Date Discharge/Depart Date Attending Provider Registered Emergency Room [place] 02/15/16 7:12pm ARNALDO PERALTA DO Departed Emergency Room [place] 02/14/16 10:41pm 02/15/16 2:25am SHILA PERRY MD Departed Emergency Room [place] 01/09/16 2:09am 01/09/16 4:30am BELLE LE D.O. Departed Emergency Room [place] 01/07/16 11:21am 01/07/16 1:00pm TEDDY MARC MD Departed Emergency Room [place] 01/03/16 3:05pm 01/03/16 9:05pm SHILA PERRY MD Departed Emergency Room [place] 01/02/16 11:14am 01/02/16 4:25pm SHILA PERRY MD Departed Emergency Room [place] 12/31/15 11:37am 12/31/15 3:39pm LAY CAMPBELL MD Departed Emergency Room [place] 12/27/15 7:16pm 12/27/15 10:13pm DOROTEO PEDROZA DO Departed Emergency Room [place] 12/07/15 3:10pm 12/07/15 5:48pm SAMUEL WHITE DO Recent Diagnosis
--- OUTSIDE RECORDS SUMMARY | 2016-09-29 10:18 | XMS REPORT | Continuity of Care Document ---
Author Author [facility] Organization [facility] Address [facility] [address] [place] [address] Phone Unavailable Support Name Relationship Address Phone BELLE LE D.O. Caregiver [address] [place] [address] RAAD RALPH Next Of Kin [address] [place] [address] Insurance Providers Payer Name Policy Number Subscriber Name Relationship [facility] [id number] Luz Marina Ralph 20 Self / Same As Patient Advance Directives Directive Response Recorded Date/Time Do you have an Advanced Directive? No 10/01/15 4:16pm Advance Directives No 10/27/15 3:58pm Living Will No 10/27/15 3:58pm Health Care Proxy No 06/16/16 11:01am Power of Stabilizing Machine Operator for Health Care No 10/27/15 3:58pm Organ, Tissue, or Eye Donor Yes 12/27/15 7:21pm Do you have a signed organ donor card? No 10/27/15 3:58pm Chief Complaint and Reason for Visit Chief Complaint HEART RACING Reason for Visit Sinus tachycardia [id number] Problems Active Problems Medical Problem Onset Date Status Chest pain Unknown Acute Gastroenteritis Unknown Acute Insect bite (nonvenomous) of right forearm, initial encounter Unknown Acute Nausea and vomiting Unknown Acute [...] Three Times A Day for Nausea/Vomiting 02/15/16 Mesalamine 0.375 Gm 0.375 Mg Oral Daily 02/25/16 Ondansetron* 4 Mg/Tab 8 Mg Oral Three Times A Day as needed for Nausea 5 02/25/16 Past Home Medications Medication Directions Ordered Status [...] Denies Use 08/11/2012 10:08pm Alcohol Use none 06/16/2016 11:52am Drug Use none 06/16/2016 11:52am Sexual History Heterosexual 09/30/2015 8:47pm Employment Unemployeed 06/16/2016 11:52am Query Response Start Date Stop Date Smoking Status Never smoker Hospital Discharge Instructions No hospital discharge instructions. Plan of Care Discharge Date 06/16/16 12:49pm Disposition 01 HOME, [facility]IV[facility] Condition at Discharge Improved Instructions/Education Provided Atrial Tachycardia (ED) Prescriptions See Medication Section Additional Instructions/Education Picked up Some guaifenesin and take twice daily to help with the drainage. Continue using her Flonase to get control of the sinus drainage. You can also gargle with salt water to remove the drainage from the back of the throat. Functional Status Query Response Date Recorded Patient Behavior Appropriate June 16, 2016 11:11am Allergies, Adverse Reactions, Alerts Allergen Type Severity [...] Active 06/16/16 Metoclopramide Allergy Unknown Active 06/16/16 [place] Allergy Intermediate HIVES Active 06/16/16 SHELLFISH DERIVED Allergy Unknown Active 06/16/16 Immunizations Name Given Type Hx Diphtheria, Pertussis, Tetanus Vaccination Up To Date Historical Hx Influenza Vaccination Y 2016 Historical Hx Pneumococcal Vaccination No Historical Hx Tetanus, Diphtheria Vaccination Y within last 4 years Historical Vital Signs Acute Vital Signs Vital Response Date/Time Temperature (Fahrenheit) 99.7 degrees F (97.6 - 99.5) 06/16/2016 11:11am Temperature Source Temporal Artery 06/16/2016 11:11am Pulse Rate (adult) 102 bpm (60 - 90) 06/16/2016 12:48pm Respiratory Rate 18 bpm (12 - 24) 06/16/2016 12:48pm Blood Pressure 112/69 mm Hg 06/16/2016 12:48pm O2 Sat by Pulse Oximetry 96 % (90 - 100) 06/16/2016 12:48pm Oxygen Delivery Method 06/16/2016 12:32pm Height 5 ft 6 in Weight 242 lb Body Mass Index 39.0 kg/m^2 Results No known relevant diagnostic tests, laboratory data and/or discharge summary. Procedures No known history of procedures. Encounters Encounter Location Arrival/Admit Date Discharge/Depart Date Attending Provider Departed Emergency Room [place] 06/16/16 11:02am 06/16/16 12:49pm BELLE LE D.O. Recent Diagnosis
--- OUTSIDE RECORDS SUMMARY | 2016-09-29 10:19 | XMS REPORT | CCD ---
Author Author HEATHER JONES Organization Unknown Address [address] [place], [place] [id number] Care Team Providers Care Data Processing Systems Consultant Name Role Phone CARRASQUILLO, AMANDEEP DO Attphys CARRASQUILLO, AMANDEEP DO Prisurg Vital Signs Unknown or Not Available. Allergies Allergy Code Allergy Type Reaction Status COMPAZINE 360265 Drug allergy Active NSAID 0 Drug allergy Active IODINE 5933 Drug allergy Active CODEINE 2670 Drug allergy Active REGLAN 9230 Drug allergy Active Procedures Procedure Code Procedure Type Date ^CBC W/AUTO DIFF 9938071 SNOMED CT 11/10/2015 TROPONIN-I ADV 161507441 SNOMED CT 11/10/2015 COMPREHENSIVE METABOLIC PANEL [id number] SNOMED CT 2015 CBC W/ AUTO DIFF (RFLX MAN DIFF IF IND) 2743141 SNOMED CT 11/10/2015 History of Immunizations Unknown or Not Available. Problems Unknown or Not Available. Results COMPREHENSIVE METABOLIC PANEL - Collect Date/Time: 11/10/2015 12:00 Test Name Code Test Result Test Units Test Ref Range GLUCOSE 2345-7 102 MG/DL L=70 H=100 SODIUM 2951-2 140 MEQ/L L=135 H=148 POTASSIUM 2823-3 4.0 MEQ/L L=3.5 H=5.3 CHLORIDE 2075-0 105 MEQ/L L=96 H=110 CO2 2028-9 23 MEQ/L L=22 H=29 BUN 3094-0 13 MG/DL L=8 H=22 CREATININE 2160-0 0.8 MG/DL L=0.6 H=1.6 SGOT/AST 1920-8 12 IU/L L=10 H=40 SGPT/ALT 1742-6 20 IU/L L=8 H=54 ALK PHOS 6768-6 79 IU/L L=35 H=115 TOTAL PROTEIN 2885-2 7.6 G/DL L=5.5 H=8.5 ALBUMIN 1751-7 4.1 G/DL L=3.1 H=5.4 TOTAL BILI 1975-2 0.3 MG/DL L=0.0 H=1.5 CALCIUM 07262-8 9.3 MG/DL L=8.2 H=10.6 AGE 35 yrs GFR NonAA 83 GFR AA 101 eGFR >60 N/A eGFR AA* >60 N/A CBC W/ AUTO DIFF (RFLX MAN DIFF IF IND) - Collect Date/Time: 11/10/2015 12:00 Test Name Code Test Result Test Units Test Ref Range WBC 10801-1 7.3 TH/CMM L=4.5 H=10.8 RBC 789-8 5.37 ML/CMM L=4.20 H=5.40 HGB 718-7 13.0 G/DL L=12.0 H=16.0 HCT 4544-3 41.8 % L=37.0 H=47.0 MCV 78 FL L=81 H=99 MCH 24.2 PG L=27.0 H=33.0 MCHC 31.1 G/DL L=31.0 H=36.0 RDW SD 39 FL L=36 H=50 RDW CV 13.9 % L=0.0 H=14.8 MPV 9.4 FL L=9.3 H=12.5 PLT 777-3 351 TH/CMM L=130 H=440 NRBC# 0.00 TH/CMM L=0.00 H=0.00 NRBC% 0.0 /100WBC L=0.0 H=2.0 %NEUT 63.5 % %LYMP 26.5 % %MONO 8.1 % %EOS 1.2 % %BASO 0.4 % #NEUT 4.60 TH/CMM L=2.10 H=8.20 #LYMP 1.92 TH/CMM L=0.90 H=5.20 #MONO 0.59 TH/CMM L=0.16 H=1.00 #EOS 0.09 TH/CMM L=0.00 H=0.80 #BASO 0.03 TH/CMM L=0.00 H=0.20 MANUAL DIFF NOT IND N/A TROPONIN-I ADV - Collect Date/Time: 11/10/2015 12:00 Test Name Code Test Result Test Units [place] [address]-3 <0.04 ng/mL L=0.04 H= 0.40 Active Medications Unknown or Not Available. Medications Administered During Visit Unknown or Not Available. Encounters Encounter Diagnosis Diagnosis Code Start Date Tachycardia [id number] 11/10/2015 Social History Smoking Status Code Start Date End Date Never smoker [id number] Patient Decision Aids Unknown or Not Available. Discharge Instructions You were admitted to [facility] on 11/10/2015 11:38 with a principal diagnosis of Tachycardia, unspecified You had the following tests done: CBC W/ AUTO DIFF (RFLX MAN DIFF IF IND) COMPREHENSIVE METABOLIC PANEL TROPONIN-I ADV You were discharged from [facility] on 11/10/2015 14:02 Should you have any questions prior to discharge, please contact a member of your healthcare team. If you have left the hospital and have any questions, please contact your primary care physician. Chief Complaint and Reason For Visit Chief Complaint Date of Onset CHEST PAIN Function Status Unknown or Not Available. Plan of Care Unknown or Not Available. Referral/Transition of Care Unknown or Not Available.
--- OUTSIDE RECORDS SUMMARY | 2016-09-29 10:19 | XMS REPORT | Continuity of Care Document ---
Author Author [facility] Organization [facility] Address [facility] [address] [address] Phone Unavailable Support Name Relationship Address Phone TEDDY MARC MD Caregiver [address] [place] [address] Unavailable RAAD RALPH Next Of Kin [address] [place], [place] [address] Insurance Providers Payer Name Policy Number Subscriber Name Relationship [facility] [id number] Valentin Ralph 18 Self / Same As Patient Advance Directives Directive Response Recorded Date/Time Do you have an Advanced Directive? No 10/01/15 4:16pm Advance Directives No 10/27/15 3:58pm Living Will No 10/27/15 3:58pm Health Care Proxy No 01/07/16 11:17am Power of Taximeter Repairer for Health Care No 10/27/15 3:58pm Organ, Tissue, or Eye Donor Yes 12/27/15 7:21pm Do you have a signed organ donor card? No 10/27/15 3:58pm Chief Complaint and Reason for Visit Chief Complaint CHEST PAIN Reason for Visit [id number] Sinus tachycardia Problems Active Problems Medical Problem Onset Date Status Nonspecific chest pain Unknown Acute Palpitations Unknown Acute Postprocedural pain of extremity following cardiac catheterization Unknown Acute Precordial chest pain Unknown Acute Sinus tachycardia Unknown Acute Syncope Unknown Acute Tachycardia Unknown Acute Medications Current Home Medications Medication Dose Units Route Directions Days/Qty Instructions Start Date Ropinirole Hcl 0.25 Mg 0.25 Mg Oral Bedtime 09/17/15 Montelukast Sodium 10 Mg 10 Mg Oral Bedtime 09/17/15 Paroxetine Hcl 25 Mg 25 Mg Oral Bedtime 09/17/15 Estradiol 2 Mg 0.5 Mg Oral Bedtime 09/17/15 Metoprolol Succinate 100 Mg 150 Mg Oral Bedtime 10/23/15 Mesalamine 0.375 Gm 0.75 Gm Oral Daily 10/23/15 Omeprazole 20 Mg 20 Mg Oral Every Morning 10/27/15 Diltiazem Hcl 120 Mg 120 Mg Oral Daily 30 12/07/15 Promethazine Hcl 25 Mg 25 Mg Oral Every 6 Hours as needed for Nausea 10 12/27/15 Metoprolol Tartrate 100 Mg 100 Mg Oral Twice A Day 01/02/16 Metoprolol Tartrate (Lopressor*) 50 Mg 50 Mg Oral As Needed for High Heart Rate 01/02/16 Acetaminophen/Hydrocodone Bitart (Lortab 5-325*) 1 Tab 1 Each Oral Every 6 Hrs As Needed For Pain 15 01/02/16 Past Home Medications Medication Directions Ordered Status [...] Tablet, 100 Mg Oral Daily 10/23/15 Discontinued Ondansetron* 4 Mg/Tab Tab.rapdis, 4 Mg Oral Every 6 Hours As Needed Nausea Discontinued Acetaminophen/Hydrocodone Bitart (Lortab 7.5-325 Tab*) 1 Tab Tablet, 1 Each Oral Every 6 Hrs As Needed For Pain 10/27/15 Discontinued Verapamil Hcl 40 Mg Tab, 40 Mg Oral Three Times A Day 11/01/15 Discontinued Ondansetron* 4 Mg/Tab Tab.rapdis, 4 Mg Oral Every 6 To 8 Hours As Needed as needed for Nausea 12/07/15 Discontinued Promethazine Hcl 25 Mg Tablet, 25 Mg Oral 2-3 Times Daily for Nausea Discontinued Social History Social History Problem Response Recorded Date/Time Smoking Status Never smoker 10/27/2015 7:06pm Tobacco Use Denies Use 08/11/2012 10:08pm Sexual History Heterosexual 09/30/2015 8:47pm Query Response Start Date Stop Date Smoking Status Never smoker Hospital Discharge Instructions No hospital discharge instructions. Plan of Care Discharge Date 01/07/16 1:00pm Condition at Discharge Stable Instructions/Education Provided Chest Pain (ED) Prescriptions See Medication Section Functional Status Query Response Date Recorded Patient Behavior Cooperative Appropriate January 07, 2016 11:22am Allergies, Adverse Reactions, Alerts Allergen Type Severity [...] Active 01/03/16 Metoclopramide Allergy Unknown Active 01/03/16 [place] Allergy Intermediate HIVES Active 01/03/16 SHELLFISH DERIVED Allergy Unknown Active 01/03/16 Immunizations Name Given Type Hx Diphtheria, Pertussis, Tetanus Vaccination Up To Date Historical Hx Influenza Vaccination Y fall 2014 Historical Hx Pneumococcal Vaccination No Historical Vital Signs Acute Vital Signs Vital Response Date/Time Temperature (Fahrenheit) 98.6 degrees F (97.6 - 99.5) 01/07/2016 11:22am Temperature Source Temporal Artery 01/07/2016 11:22am Pulse Rate (adult) 110 bpm (60 - 90) 01/07/2016 12:50pm Respiratory Rate 20 bpm (12 - 24) 01/07/2016 12:50pm Blood Pressure 113/81 mm Hg 01/07/2016 12:50pm O2 Sat by Pulse Oximetry 96 % (90 - 100) 01/07/2016 12:50pm Oxygen Delivery Method 01/07/2016 11:22am Pain Location Body Site Modifier 01/07/2016 12:00pm Pain Description Heaviness 01/07/2016 12:00pm Height 5 ft 8 in Weight 231 lb Body Mass Index 35.0 kg/m^2 Results Laboratory Results Test Name Result Units Flags Reference Collection Date/Time Result Date/ Time Comments White Blood Count 6.9 K/uL 4.8-10.8 10/14/2015 7:40am 10/14/2015 8: 04am Red Blood Count 5.25 M/uL 4.20-5.40 10/14/2015 7:40am 10/14/2015 8: 04am Hemoglobin 13.0 gm/dL 12.0-16.0 10/14/2015 7:40am 10/14/2015 8:04am Hematocrit 40.2 % 37.0-47.0 10/14/2015 7:40am 10/14/2015 8:04am Mean Corpuscular Volume 76.6 fL L 81.0-99.0 10/14/2015 7:40am 2015 8:04am Mean Corpuscular Hemoglobin 24.8 pg L 27.0-31.0 10/14/2015 7:40am 2015 8:04am Mean Corpuscular Hemoglobin Concent 32.4 g/dL 30.0-37.0 10/14/2015 7: 40am 10/14/2015 8:04am Red Cell Distribution Width 15.2 % H 11.5-14.5 10/14/2015 7:40am 2015 8:04am Platelet Count 347 K/uL 130-400 10/14/2015 7:40am 10/14/2015 8:04am Mean Platelet Volume 7.5 fL 7.4-10.4 10/14/2015 7:40am 10/14/2015 8: 04am Neutrophils (%) (Auto) 47.0 % 42.2-75.2 10/14/2015 7:40am 10/14/2015 8: 04am Lymphocytes (%) (Auto) 43.1 % 20.5-51.1 10/14/2015 7:40am 10/14/2015 8: 04am Monocytes (%) (Auto) 6.4 % 1.7-9.3 10/14/2015 7:40am 10/14/2015 8:04am Eosinophils (%) (Auto) 2.3 % 0-3 10/14/2015 7:40am 10/14/2015 8:04am Basophils (%) (Auto) 1.3 % H 0.0-1.0 10/14/2015 7:40am 10/14/2015 8: 04am Neutrophils # (Auto) 3.2 K/uL 2.0-6.9 10/14/2015 7:4010/14/2015 8: 04am Lymphocytes # (Auto) 3.0 K/uL 1.2-3.4 10/14/2015 7:4010/14/2015 8: 04am Monocytes # (Auto) 0.4 K/uL 0.1-0.6 10/14/2015 7:40am 10/14/2015 8: 04am Eosinophils # (Auto) 0.2 K/uL 0.0-0.7 10/14/2015 7:4010/14/2015 8: 04am Basophils # (Auto) 0.1 K/uL 0.0-0.2 10/14/2015 7:4010/14/2015 8: 04am Random Glucose 98 mg/dL 70-110 10/14/2015 7:4010/14/2015 8:13am Blood Urea Nitrogen 10 mg/dL 7-18 10/14/2015 7:4010/14/2015 8:13am Creatinine 0.9 mg/dL 0.55-1.02 10/14/2015 7:4010/14/2015 8:13am Sodium Level 137 mEq/L 136-145 10/14/2015 7:4010/14/2015 8:13am Potassium Level 4.0 mEq/L 3.5-5.0 10/14/2015 7:4010/14/2015 8:13am Chloride Level 99 mEq/L 98-107 10/14/2015 7:4010/14/2015 8:13am Carbon Dioxide Level 29.5 mEq/L 21-32 10/14/2015 7:4010/14/2015 8: 13am Calcium Level 8.9 mg/dL 8.8-10.5 10/14/2015 7:4010/14/2015 8:13am Total Protein 7.6 gm/dL 6.4-8.2 10/14/2015 7:4010/14/2015 8:13am Albumin 3.3 gm/dL L 3.4-5.0 10/14/2015 7:40am 10/14/2015 8:13am Total Bilirubin 0.18 mg/dL 0.00-1.00 10/14/2015 7:40am 10/14/2015 8: 13am Aspartate Amino Transf (AST/SGOT) 33 U/L 15-37 10/14/2015 7:40am 2015 8:13am Alanine Aminotransferase (ALT/SGPT) 34 U/L 12-78 10/14/2015 7:40am 03/2016 8:13am Total Alkaline Phosphatase 79 U/L 46-116 10/14/2015 7:40am 10/14/2015 8 :13am Total Creatine Kinase 418 U/L H 26-192 10/14/2015 7:40am 10/14/2015 8: 13am B-Type Natriuretic Peptide 262 pg/mL H 10-146 10/14/2015 7:40am 2015 8:13am <50 years of age NT-proBNP values <300 pg/mL have a 99% negative predictive value for excluding acute congestive heart failure (CHF). A cutoff of 1,200 pg/mL for patients with an eGFR <60 yields a diagnostic sensitivity and specificity of 89% and 72% for acute CHF. NT-proBNP values >450 pg/mL are consistent with CHF in adults under 50 years of age. Creatine Kinase MB 6.6 NG/ML H 0-3.6 10/14/2015 7:40am 10/14/2015 8: 13am Myoglobin 31.0 NG/ML 10.5-92.5 10/14/2015 7:40am 10/14/2015 8:13am Troponin I 0.0 NG/ML 0.0-0.2 10/14/2015 7:40am 10/14/2015 8:13am Glomerular Filtration Rate Calc 76.6 mL/min 10/14/2015 7:40am 2015 8:13am Pending Laboratory Results Test Name Collection Date/Time Procedures Procedure Status Date Provider(s) Portable x-ray of chest Active 10/14/15 CONRADO CASE DO Ultrasound of artery of right lower extremity Active 10/23/15 DARLENE MEDRANO MD X-ray of chest, PA and lateral views Active 10/27/15 DOROTEO PEDROZA DO Portable x-ray of chest Active 12/07/15 SAMUEL WHITE DO X-ray of chest, PA and lateral views Active 12/31/15 LAY CAMPBELL MD Portable x-ray of chest Active 01/02/16 SHILA PERRY MD Portable x-ray of chest Active 01/03/16 SHILA PERRY MD Computed tomography angiography of chest without then with contrast Active SHILA PERRY MD Encounters Encounter Location Arrival/Admit Date Discharge/Depart Date Attending Provider Departed [facility] [place] 01/07/16 11:21am 01/07/16 1:00pm TEDDY MARC MD Departed [facility] [place] 01/03/16 3:05pm 01/03/16 9:05pm SHILA PERRY MD Departed [facility] [place] 01/02/16 11:14am 01/02/16 4:25pm SHILA PERRY MD Departed [facility] [place] 12/31/15 11:37am 12/31/15 3:39pm LAY CAMPBELL MD Departed Emergency [facility] [place] 12/27/15 7:16pm 12/27/15 10:13pm DOROTEO PEDROZA DO Departed Emergency Room [place] 12/07/15 3:10pm 12/07/15 5:48pm SAMUEL WHITE DO Departed Emergency [facility] [place] 11/01/15 4:18pm 11/01/15 6:38pm BELLE LE D.O. Departed Emergency Room [place] 10/27/15 4:00pm 10/27/15 7:30pm DOROTEO PEDROZA DO Departed Emergency Room [place] 10/23/15 2:41pm 10/23/15 5:25pm DARLENE MEDRANO MD Departed Emergency Room [place] 10/14/15 7:01am 10/14/15 8:47am CONRADO CASE DO Recent Diagnosis
--- OUTSIDE RECORDS SUMMARY | 2016-09-29 10:20 | XMS REPORT | Continuity of Care Document ---
Author Author [facility] Organization [facility] Address [facility] [address] [place] [address] Phone Unavailable Support Name Relationship Address Phone BELLE LE D.O. Caregiver [address] [place] [address] RAAD RALPH Next Of Kin [address] [place], [place] [address] Insurance Providers Payer Name Policy Number Subscriber Name Relationship [facility] [id number] Valentin Ralph 18 Self / Same As Patient Advance Directives Directive Response Recorded Date/Time Do you have an Advanced Directive? No 10/01/15 4:16pm Advance Directives No 10/27/15 3:58pm Living Will No 10/27/15 3:58pm Health Care Proxy No 01/09/16 6:34am Power of Peg Driver for Health Care No 10/27/15 3:58pm Organ, Tissue, or Eye Donor Yes 12/27/15 7:21pm Do you have a signed organ donor card? No 10/27/15 3:58pm Chief Complaint and Reason for Visit Chief Complaint HEART RACING Reason for Visit Sinus tachycardia Chest pain Ulcerative colitis Problems Active Problems Medical Problem Onset Date Status Chest pain Unknown Acute Nonspecific chest pain Unknown Acute [...] Denies Use 08/11/2012 10:08pm Alcohol Use none 01/09/2016 3:49am Sexual History Heterosexual 09/30/2015 8:47pm Query Response Start Date Stop Date Smoking Status Never smoker Hospital Discharge Instructions No hospital discharge instructions. Plan of Care Discharge Date 01/09/16 4:30am Condition at Discharge Improved Instructions/Education Provided Atrial Tachycardia (DC) Prescriptions See Medication Section Additional Instructions/Education Continue with your normal medications and contact Dr. Yates at to determine any adjustments in her medications. You can discuss with him his desire to admit to for medication adjustment if needed. Be certain that you are drinking adequate fluids to keep herself well-hydrated to help prevent aggravation of this problem. Functional Status Query Response Date Recorded Patient Behavior Cooperative Appropriate January 09, 2016 2:10am Allergies, Adverse Reactions, Alerts Allergen Type Severity [...] Active 01/03/16 Metoclopramide Allergy Unknown Active 01/03/16 [place] Allergy Intermediate HIVES Active 01/03/16 SHELLFISH DERIVED Allergy Unknown Active 01/03/16 Immunizations Name Given Type Hx Diphtheria, Pertussis, Tetanus Vaccination Up To Date Historical Hx Influenza Vaccination Yes Historical Hx Pneumococcal Vaccination Yes Historical Vital Signs Acute Vital Signs Vital Response Date/Time Temperature (Fahrenheit) 97.2 degrees F (97.6 - 99.5) 01/09/2016 2:10am Temperature Source Temporal Artery 01/09/2016 2:10am Pulse Rate (adult) 96 bpm (60 - 90) 01/09/2016 4:20am Respiratory Rate 12 bpm (12 - 24) 01/09/2016 4:20am Blood Pressure 100/71 mm Hg 01/09/2016 4:20am O2 Sat by Pulse Oximetry 96 % (90 - 100) 01/09/2016 4:20am Oxygen Delivery Method 01/09/2016 4:20am Pain Location Body Site Modifier 01/09/2016 3:13am Pain Description Heaviness 01/07/2016 12:00pm Height 5 ft 8 in Weight 229 lb Body Mass Index 34.0 kg/m^2 Results Laboratory Results Test Name Result [...] (%) (Auto) 1.3 % H 0.0-1.0 10/14/2015 7:4010/14/2015 8: 04am Neutrophils # (Auto) 3.2 K/uL 2.0-6.9 10/14/2015 7:40am 10/14/2015 8: 04am Lymphocytes # (Auto) 3.0 K/uL 1.2-3.4 10/14/2015 7:40am 10/14/2015 8: 04am Monocytes # (Auto) 0.4 K/uL 0.1-0.6 10/14/2015 7:40am 10/14/2015 8: 04am Eosinophils # (Auto) 0.2 K/uL 0.0-0.7 10/14/2015 7:40am 10/14/2015 8: 04am Basophils # (Auto) 0.1 K/uL [...] 8:13am Albumin 3.3 gm/dL L 3.4-5.0 10/14/2015 7:4010/14/2015 8:13am Total Bilirubin 0.18 mg/dL 0.00-1.00 10/14/2015 7:40am 10/14/2015 8: 13am Aspartate Amino Transf (AST/SGOT) 33 U/L 15-37 10/14/2015 7:40am 2015 8:13am Alanine Aminotransferase (ALT/SGPT) 34 U/L 12-78 10/14/2015 7:40am 03/2016 8:13am Total Alkaline Phosphatase 79 U/L 46-116 10/14/2015 7:4010/14/2015 8 :13am Total Creatine Kinase 418 U/L H 26-192 10/14/2015 7:40am 10/14/2015 8: 13am B-Type Natriuretic Peptide 262 pg/mL H 10-146 10/14/2015 7:402015 8:13am <50 years of age NT-proBNP values [...] Kinase MB 6.6 NG/ML H 0-3.6 10/14/2015 7:4010/14/2015 8: 13am Myoglobin 31.0 NG/ML 10.5-92.5 10/14/2015 7:4010/14/2015 8:13am Troponin I 0.0 NG/ML 0.0-0.2 10/14/2015 [...] Discharge/Depart Date Attending Provider Registered Emergency Room [place] 01/09/16 2:09am BELLE LE D.O. Departed Emergency Room [place] 01/07/16 11:21am 01/07/16 1:00pm TEDDY MARC MD Departed Emergency Room [place] 01/03/16 3:05pm 01/03/16 9:05pm SHILA PERRY MD Departed Emergency Room [place] 01/02/16 11:14am 01/02/16 4:25pm SHILA PERRY MD Departed Emergency Room [place] 12/31/15 11:37am 12/31/15 3:39pm LAY CAMPBELL MD Departed Emergency Room [place] 12/27/15 7:16pm 12/27/15 10:13pm DOROTEO PEDROZA DO Departed Emergency Room [place] 12/07/15 3:10pm 12/07/15 5:48pm SAMUEL WHITE DO Departed Emergency Room [place] 11/01/15 4:18pm 11/01/15 6:38pm BELLE LE D.O. Departed Emergency Room [place] 10/27/15 4:00pm 10/27/15 7:30pm DOROTEO PEDROZA DO Departed Emergency Room [place] 10/23/15 2:41pm 10/23/15 5:25pm DARLENE MEDRANO MD Departed Emergency Room [place] 10/14/15 7:01am 10/14/15 8:47am CONRADO CASE DO Recent Diagnosis
--- OUTSIDE RECORDS SUMMARY | 2016-09-29 10:20 | XMS REPORT | Continuity of Care Document ---
Author Author [facility] Organization [facility] Address [facility] [address] [place] [address] Phone Unavailable Support Name Relationship Address Phone BELLE LE D.O. Caregiver [address] [place] [address] RAAD RALPH Next Of Kin [address] [place], [place] [id number] Insurance Providers Payer Name Policy Number Subscriber Name Relationship [facility] [id number] Valentin Ralph 18 Self / Same As Patient Advance Directives Directive Response Recorded Date/Time Do you have an Advanced Directive? No 10/01/15 4:16pm Advance Directives No 10/27/15 3:58pm Living Will No 10/27/15 3:58pm Health Care Proxy No 02/25/16 5:09pm Power of Kinder Teacher for Health Care No 10/27/15 3:58pm Organ, Tissue, or Eye Donor Yes 12/27/15 7:21pm Do you have a signed organ donor card? No 10/27/15 3:58pm Chief Complaint and Reason for Visit Chief Complaint INSECT BITE Reason for Visit Gastroenteritis [id number] Problems Active Problems Medical Problem Onset Date [...] discharge instructions. Plan of Care Discharge Date 02/25/16 7:20pm Disposition 01 HOME, [facility]IV[facility] Condition at Discharge Stable Instructions/Education Provided Gastroenteritis (ED) Prescriptions See Medication Section Additional Instructions/Education If you continue to have any temperature above 100.8 for nausea worsens see your provider in the next 48 hours. Stay on just clear liquids for the next 24 hours to allow your stomach to settle. Functional Status Query Response Date Recorded Patient Behavior Cooperative Appropriate February 25, 2016 5:45pm Allergies, Adverse Reactions, Alerts Allergen Type Severity [...] Active 01/03/16 Metoclopramide Allergy Unknown Active 01/03/16 [place] Allergy Intermediate HIVES Active 01/03/16 SHELLFISH DERIVED Allergy Unknown Active 01/03/16 Immunizations Name Given Type Hx Diphtheria, Pertussis, Tetanus Vaccination Up To Date Historical Hx Influenza Vaccination Y Fall 2014 Historical Hx Pneumococcal Vaccination No Historical Hx Tetanus, Diphtheria Vaccination Y within last 4 years Historical Vital Signs Acute Vital Signs Vital Response Date/Time Temperature (Fahrenheit) 98.1 degrees F (97.6 - 99.5) 02/25/2016 7:19pm Temperature Source Temporal Artery 02/25/2016 7:19pm Pulse Rate (adult) 94 bpm (60 - 90) 02/25/2016 7:19pm Respiratory Rate 20 bpm (12 - 24) 02/25/2016 5:45pm Blood Pressure 110/76 mm Hg 02/25/2016 7:19pm O2 Sat by Pulse Oximetry 98 % (90 - 100) 02/25/2016 7:19pm Oxygen Delivery Method 02/25/2016 7:19pm Pain Location Body Site Modifier 02/14/2016 11:26pm [...] of abdomen and pelvis without contrast Active 02/15/16 ARNALDO PERALTA DO Encounters Encounter Location Arrival/Admit Date Discharge/Depart Date Attending Provider Departed Emergency Room [place] 02/25/16 5:11pm 02/25/16 7:20pm BELLE LE D.O. Departed Emergency Room [place] 02/15/16 7:12pm 02/15/16 8:42pm ARNALDO PERALTA DO Departed Emergency Room [place] 02/14/16 10:41pm 02/15/16 2:25am SHILA PERRY MD Departed Emergency Room [place] 01/09/16 2:09am 01/09/16 4:30am BELLE LE D.O. Departed Emergency Room [place] 01/07/16 11:21am 01/07/16 1:00pm TEDDY MARC MD Departed Emergency Room [place] 01/03/16 3:05pm 01/03/16 9:05pm SHILA PERRY MD Departed Emergency Room [place] 01/02/16 11:14am 01/02/16 4:25pm SHILA PERRY MD Departed Emergency Room [place] 12/31/15 11:37am 12/31/15 3:39pm LAY CAMPBELL MD Departed Emergency Room [place] 12/27/15 7:16pm 12/27/15 10:13pm DOROTEO PEDROZA DO Departed Emergency Room [place] 12/07/15 3:10pm 12/07/15 5:48pm SAMUEL WHITE DO Recent Diagnosis
--- OUTSIDE RECORDS SUMMARY | 2016-09-29 10:21 | XMS REPORT | Continuity of Care Document ---
Author Author [facility] Organization [facility] Address [facility] [address] [address] Phone Unavailable Care Team Providers Care Seal Extrusion Operator Name Role Phone STAFF, OTHER NOT ON PCP Unavailable Insurance Providers Payer Name Policy Number Subscriber Name Relationship [facility] [id number] Valentin Ralph 18 Self / Same As Patient Advance Directives Directive Response Recorded Date/Time Do you have an Advanced Directive? No 10/01/15 4:16pm Advance Directives No 10/27/15 3:58pm Living Will No 10/27/15 3:58pm Health Care Proxy No 08/14/16 6:39am Power of Machine Zipper Trimmer for Health Care No 10/27/15 3:58pm Organ, Tissue, or Eye Donor Yes 12/27/15 7:21pm Do you have a signed organ donor card? No 10/27/15 3:58pm Chief Complaint and Reason for Visit Chief Complaint FLANK PAIN Reason for Visit Hematuria [id number] Problems Active Problems Medical Problem Onset Date Status Chest pain Unknown Acute Gastroenteritis Unknown Acute Hematuria Unknown Acute Insect bite (nonvenomous) of right forearm, initial encounter Unknown Acute Kidney stone on left side Unknown Acute Left flank pain Unknown Acute [...] Day as needed for Nausea 5 02/25/16 Phenazopyridine Hcl 200 Mg 200 Mg Oral Three Times A Day 6 08/14/16 Past Home Medications Medication Directions Ordered Status [...] discharge instructions. Plan of Care Discharge Date 08/14/16 7:10am Condition at Discharge Improved Instructions/Education Provided Hematuria (ED) Flank Pain (ED) Prescriptions See Medication Section Referrals KASSIE BOLIVAR - 2-3 Days Functional Status Query Response Date Recorded [place] Coma Scale Total 15 August 14, 2016 4:15am Patient Behavior Cooperative Appropriate August 14, 2016 4:15am Allergies, Adverse Reactions, Alerts Allergen Type Severity [...] Active 06/16/16 Metoclopramide Allergy Unknown Active 06/16/16 [place] Allergy Intermediate HIVES Active 06/16/16 SHELLFISH DERIVED Allergy Unknown Active 06/16/16 Immunizations Name Given Type Hx Diphtheria, Pertussis, Tetanus Vaccination Up To Date Historical Hx Influenza Vaccination Yes Historical Hx Pneumococcal Vaccination No Historical Hx Tetanus, Diphtheria Vaccination Y within last 4 years Historical Vital Signs Acute Vital Signs Vital Response Date/Time Temperature (Fahrenheit) 96.0 degrees F (97.6 - 99.5) 08/14/2016 7:05am Temperature Source Temporal Artery 08/14/2016 7:05am Pulse Rate (adult) 103 bpm (60 - 90) 08/14/2016 7:05am Respiratory Rate 18 bpm (12 - 24) 08/14/2016 7:05am Blood Pressure 116/71 mm Hg 08/14/2016 7:05am O2 Sat by Pulse Oximetry 96 % (90 - 100) 08/14/2016 7:05am Oxygen Delivery Method 08/14/2016 7:05am Pain Location Body Site Modifier 08/14/2016 5:53am Height 5 ft 8 in Weight 220 lb Body Mass Index 33.0 kg/m^2 Results Pending Laboratory Results Test Name Collection Date/Time Procedures Procedure Status Date Provider(s) Computed tomography of abdomen and pelvis without contrast Active 07/15/16 BELLE LE D.O. Computed tomography of abdomen and pelvis without contrast Completed DARLENE MEDRANO MD Encounters Encounter Location Arrival/Admit Date Discharge/Depart Date Attending Provider Departed Emergency Room [place] 08/14/16 3:52am 08/14/16 7:10am DARLENE MEDRANO MD Departed Emergency Room [place] 07/15/16 6:49pm 07/15/16 8:10pm BELLE LE D.O. Departed Emergency Room [place] 06/16/16 11:02am 06/16/16 12:49pm BELLE LE D.O. Recent Diagnosis
--- OUTSIDE RECORDS SUMMARY | 2016-09-29 10:21 | XMS REPORT | Continuity of Care Document ---
Author Author [facility] Organization [facility] Address [facility] [address] [place] [address] Phone Unavailable Support Name Relationship Address Phone DOROTEO PEDROZA DO Caregiver [address] [place] [id number] Unavailable RAAD RALPH Next Of Kin [address] [place], [place] [address] Insurance Providers Payer Name Policy Number Subscriber Name Relationship [facility] [id number] Valentin Ralph 18 Self / Same As Patient Advance Directives Directive Response Recorded Date/Time Do you have an Advanced Directive? No 10/01/15 4:16pm Advance Directives No 10/27/15 3:58pm Living Will No 10/27/15 3:58pm Health Care Proxy No 12/27/15 7:21pm Power of Carbon Coating Machine Operator for Health Care No 10/27/15 3:58pm Organ, Tissue, or Eye Donor Yes 12/27/15 7:21pm Do you have a signed organ donor card? No 10/27/15 3:58pm Chief Complaint and Reason for Visit Chief Complaint RAPID HEART RATE Reason for Visit Tachycardia Problems Active Problems Medical Problem Onset Date Status Nonspecific chest pain Unknown Acute Palpitations Unknown Acute Postprocedural pain of extremity following cardiac catheterization Unknown Acute Precordial chest pain Unknown Acute Sinus tachycardia Unknown Acute Tachycardia Unknown Acute Medications Current Home Medications Medication Dose Units Route Directions Days/Qty Instructions Start Date Ropinirole Hcl 0.25 Mg 0.25 Mg Oral Bedtime 09/17/15 Montelukast Sodium 10 Mg 10 Mg Oral Bedtime 09/17/15 Paroxetine Hcl 25 Mg 25 Mg Oral Bedtime 09/17/15 Estradiol 2 Mg 0.5 Mg Oral Bedtime 09/17/15 Metoprolol Succinate 100 Mg 100 Mg Oral Bedtime 10/23/15 Metoprolol Tartrate 100 Mg 100 Mg Oral Daily 10/23/15 Mesalamine 0.375 Gm 0.75 Gm Oral Daily 10/23/15 Omeprazole 20 Mg 20 Mg Oral Every Morning 10/27/15 Ondansetron* 4 Mg/Tab 4 Mg Oral Every 6 Hours As Needed Nausea 20 Acetaminophen/Hydrocodone Bitart (Lortab 7.5-325 Tab*) 1 Tab 1 Each Oral Every 6 Hrs As Needed For Pain 15 10/27/15 Verapamil Hcl 40 Mg 40 Mg Oral Three Times A Day 20 11/01/15 Diltiazem Hcl 120 Mg 120 Mg Oral Daily 30 12/07/15 Ondansetron* 4 Mg/Tab 4 Mg Oral Every 6 To 8 Hours As Needed as needed for Nausea 8 12/07/15 Promethazine Hcl 25 Mg 25 Mg Oral Every 6 Hours as needed for Nausea 10 12/27/15 Past Home Medications Medication Directions Ordered Status [...] as needed for Nausea /Vomiting 10/14/15 Discontinued Social History Social History Problem Response Recorded Date/Time Smoking Status Never smoker 10/27/2015 7:06pm Tobacco Use Denies Use 08/11/2012 10:08pm Alcohol Use none 12/27/2015 7:37pm Drug Use none 12/27/2015 7:37pm Sexual History Heterosexual 09/30/2015 8:47pm Query Response Start Date Stop Date Smoking Status Never smoker Hospital Discharge Instructions No hospital discharge instructions. Plan of Care Discharge Date 12/27/15 10:13pm Condition at Discharge Stable Instructions/Education Provided Atrial Tachycardia (ED) Prescriptions See Medication Section Additional Instructions/Education Followup with your spindle frame carver tomorrow by phone. Return to the emergency department for worsening pain, shortness of breath or any other concerns. Functional Status Query Response Date Recorded [place] Coma Scale Total 15 December 27, 2015 7:14pm Patient Behavior Cooperative Appropriate December 27, 2015 7:14pm Allergies, Adverse Reactions, Alerts Allergen Type Severity Reaction Status Last Updated PROCHLORPERAZINE EDISYLATE Adverse Reaction Unknown HALLUCINATIONS Active 11/01/15 PROMETHAZINE HCL Allergy Unknown PASSES OUT Active 11/01/15 DICYCLOMINE HCL Adverse Reaction Mild STOMACH CRAMPING Active 11/01/15 KETOROLAC TROMETHAMINE Allergy Mild RASH Active 11/01/15 NSAIDS (NON-STEROIDAL ANTI-INFLAMMA Allergy Unknown Active 11/01/15 Iodine Allergy Mild RASH Active 11/01/15 Codeine Allergy Unknown Active 11/01/15 Ibuprofen Allergy Mild RASH Active 11/01/15 Erythromycin base Allergy Mild RASH Active 10/14/15 Tramadol Allergy Mild RASH Active 11/01/15 Metoclopramide Allergy Unknown Active 11/01/15 [place] Allergy Intermediate HIVES Active 11/01/15 SHELLFISH DERIVED Allergy Unknown Active 11/01/15 Immunizations Name Given Type Hx Diphtheria, Pertussis, Tetanus Vaccination Up To Date Historical Hx Influenza Vaccination Yes Historical Hx Pneumococcal Vaccination No Historical Vital Signs Acute Vital Signs Vital Response Date/Time Temperature (Fahrenheit) 98.4 degrees F (97.6 - 99.5) 12/27/2015 7:14pm Temperature Source Temporal Artery 12/27/2015 7:14pm Pulse Rate (adult) 120 bpm (60 - 90) 12/27/2015 10:04pm Respiratory Rate 18 bpm (12 - 24) 12/27/2015 10:04pm Blood Pressure 107/69 mm Hg 12/27/2015 10:04pm O2 Sat by Pulse Oximetry 96 % (90 - 100) 12/27/2015 10:04pm Oxygen Delivery Method 12/27/2015 10:04pm Pain Intensity 6 10/02/2015 6:26am Pain Location Body Site Modifier 12/27/2015 9:03pm Pain Description 12/27/2015 9:03pm Height 5 ft 8 in Weight 230 lb Body Mass Index 35.0 kg/m^2 Results Laboratory Results Test Name Result Units Flags Reference Collection Date/Time Result Date/ Time Comments White Blood Count 6.2 K/uL 4.8-10.8 10/02/2015 9:56am 10/02/2015 10: 06am Red Blood Count 4.79 M/uL 4.20-5.40 10/02/2015 9:56am 10/02/2015 10: 06am Hemoglobin 11.7 gm/dL L 12.0-16.0 10/02/2015 9:56am 10/02/2015 10:06am Hematocrit 37.7 % 37.0-47.0 10/02/2015 9:56am 10/02/2015 10:06am Mean Corpuscular Volume 78.8 fL L 81.0-99.0 10/02/2015 9:56am 2015 10:06am Mean Corpuscular Hemoglobin 24.4 pg L 27.0-31.0 10/02/2015 9:56am 2015 10:06am Mean Corpuscular Hemoglobin Concent 31.2 g/dL 30.0-37.0 10/02/2015 9: 56am 10/02/2015 10:06am Red Cell Distribution Width 15.6 % H 11.5-14.5 10/02/2015 9:56am 2015 10:06am Platelet Count 331 K/uL 130-400 10/02/2015 9:56am 10/02/2015 10:06am Mean Platelet Volume 7.4 fL 7.4-10.4 10/02/2015 9:am 10/02/2015 10: 06am Neutrophils (%) (Auto) 60.7 % 42.2-75.2 10/02/2015 9:56am 10/02/2015 10 :06am Lymphocytes (%) (Auto) 28.3 % 20.5-51.1 10/02/2015 9:56am 10/02/2015 10 :06am Monocytes (%) (Auto) 6.3 % 1.7-9.3 10/02/2015 9:56am 10/02/2015 10: 06am Eosinophils (%) (Auto) 2.8 % 0-3 10/02/2015 9:10/02/2015 10:06am Basophils (%) (Auto) 1.9 % H 0.0-1.0 10/02/2015 9:56am 10/02/2015 10: 06am Neutrophils # (Auto) 3.8 K/uL 2.0-6.9 10/02/2015 9:56am 10/02/2015 10: 06am Lymphocytes # (Auto) 1.8 K/uL 1.2-3.4 10/02/2015 9:56am 10/02/2015 10: 06am Monocytes # (Auto) 0.4 K/uL 0.1-0.6 10/02/2015 9:56am 10/02/2015 10: 06am Eosinophils # (Auto) 0.2 K/uL 0.0-0.7 10/02/2015 9:56am 10/02/2015 10: 06am Basophils # (Auto) 0.1 K/uL 0.0-0.2 10/02/2015 9:56am 10/02/2015 10: 06am D-Dimer 0.43 MG/L 0.19-0.50 09/30/2015 5:30pm 09/30/2015 9:54pm PLEASE NOTE REFERENCE RANGE Cut-off value for D-Dimer is 0.50 mg/L. The results of this test should always be interpreted in conjunction with pretest probability assesement to aid in the diagnosis of venous thromboembolism (VTE) [deep vein thrombosis (DVT) or pulmonary embolism (PE). Random Glucose 102 mg/dL 70-110 10/02/2015 9:56am 10/02/2015 10:33am Blood Urea Nitrogen 8 mg/dL 7-18 10/02/2015 9:56am 10/02/2015 10:33am Creatinine 0.8 mg/dL 0.55-1.02 10/02/2015 9:56am 10/02/2015 10:33am Sodium Level 141 mEq/L 136-145 10/02/2015 9:56am 10/02/2015 10:33am Potassium Level 4.0 mEq/L 3.5-5.0 10/02/2015 9:56am 10/02/2015 10:33am Chloride Level 104 mEq/L 98-107 10/02/2015 9:56am 10/02/2015 10:33am Carbon Dioxide Level 27.9 mEq/L 21-32 10/02/2015 9:56am 10/02/2015 10: 33am Calcium Level 9.2 mg/dL 8.8-10.5 10/02/2015 9:56am 10/02/2015 10:33am Total Protein 7.0 gm/dL 6.4-8.2 10/02/2015 9:56am 10/02/2015 10:33am Albumin 3.0 gm/dL L 3.4-5.0 10/02/2015 9:56am 10/02/2015 10:33am Total Bilirubin 0.26 mg/dL 0.00-1.00 10/02/2015 9:56am 10/02/2015 10: 33am Aspartate Amino Transf (AST/SGOT) 20 U/L 15-37 10/02/2015 9:56am 2015 10:33am Alanine Aminotransferase (ALT/SGPT) 29 U/L 12-78 10/02/2015 9:56am 10:33am Total Alkaline Phosphatase 65 U/L 46-116 10/02/2015 9:56am 10/02/2015 10:33am Total Creatine Kinase 23 U/L L 26-192 09/30/2015 5:50pm 09/30/2015 6: 26pm B-Type Natriuretic Peptide < 15 PG/ML 0-100 09/30/2015 5:50pm 2015 6:26pm Creatine Kinase MB < 0.5 NG/ML 0-3.6 10/01/2015 8:45am 10/01/2015 9: 41am Myoglobin 19.0 NG/ML 10.5-92.5 10/01/2015 8:45am 10/01/2015 9:41am Troponin I 0.0 NG/ML 0.0-0.2 10/01/2015 8:45am 10/01/2015 9:41am Glomerular Filtration Rate Calc 87.8 mL/min 10/02/2015 9:56am 2015 10:33am Pending Laboratory Results Test Name Collection Date/Time Procedures Procedure Status Date Provider(s) Portable x-ray of chest Active 09/30/15 SAMUEL WHITE DO Portable x-ray of chest Active 10/14/15 CONRADO CASE DO Ultrasound of artery of right lower extremity Active 10/23/15 DARLENE MEDRANO MD X-ray of chest, PA and lateral views Active 10/27/15 DOROTEO PEDROZA DO Portable x-ray of chest Active 12/07/15 SAMUEL WHITE DO Encounters Encounter Location Arrival/Admit Date Discharge/Depart Date Attending Provider Departed Emergency Room [place] 12/27/15 7:16pm 12/27/15 10:13pm DOROTEO PEDROZA DO Departed Emergency Room [place] 12/07/15 3:10pm 12/07/15 5:48pm SAMUEL WHITE DO Departed Emergency Room [place] 11/01/15 4:18pm 11/01/15 6:38pm BELLE LE D.O. Departed Emergency Room [place] 10/27/15 4:00pm 10/27/15 7:30pm DOROTEO PEDROZA DO Departed Emergency Room [place] 10/23/15 2:41pm 10/23/15 5:25pm DARLENE MEDRANO MD Departed Emergency Room [place] 10/14/15 7:01am 10/14/15 8:47am CONRADO CASE DO Discharged Inpatient (obs) [place] 09/30/15 9:28pm 10/02/15 8:40pm KOURTNEY BILLY MD Recent Diagnosis
--- OUTSIDE RECORDS SUMMARY | 2016-09-29 10:22 | XMS REPORT | Continuity of Care Document ---
Author Author [facility] Organization [facility] Address [facility] [address] [place] [address] Phone Unavailable Support Name Relationship Address Phone SHILA PERRY MD Caregiver [address] [place] [address] RAAD RALPH Next Of Kin [address] [place] [address] Insurance Providers Payer Name Policy Number Subscriber Name Relationship [facility] [id number] Valentin Ralph 18 Self / Same As Patient Advance Directives Directive Response Recorded Date/Time Do you have an Advanced Directive? No 10/01/15 4:16pm Advance Directives No 10/27/15 3:58pm Living Will No 10/27/15 3:58pm Health Care Proxy No 02/14/16 10:39pm Power of Pet Caregiver for Health Care No 10/27/15 3:58pm Organ, [...] Hours as needed for Nausea 10 12/27/15 Acetaminophen/Hydrocodone Bitart (Lortab 5-325*) 1 Tab 1 [...] Needed for High Heart Rate 01/02/16 Discontinued Social History Social History Problem Response Recorded Date/Time Smoking Status Never smoker 10/27/2015 7:06pm Tobacco Use Denies Use 08/11/2012 10:08pm Alcohol Use none 02/14/2016 11:11pm Drug Use none 02/14/2016 11:11pm Sexual History Heterosexual 09/30/2015 8:47pm Query Response Start Date Stop Date Smoking Status Never smoker Hospital Discharge Instructions No hospital discharge instructions. Plan of Care Discharge Date 02/15/16 2:25am Condition at Discharge Stable Instructions/Education Provided Acute Nausea and Vomiting (ED) Prescriptions See Medication Section Additional Instructions/Education return for 24 hour recheck if not significantly improved. return sooner if condition worsens, develops concerning symptoms. otherwise, follow up with your doctor in 1-2 days. Functional Status Query Response Date Recorded Patient Behavior Appropriate February 14, 2016 10:49pm Allergies, Adverse Reactions, Alerts Allergen Type Severity [...] Active 01/03/16 Metoclopramide Allergy Unknown Active 01/03/16 [place] Allergy Intermediate HIVES Active 01/03/16 SHELLFISH DERIVED Allergy Unknown Active 01/03/16 Immunizations Name Given Type Hx Diphtheria, Pertussis, Tetanus Vaccination Unknown Historical Hx Influenza Vaccination No Historical Hx Pneumococcal Vaccination No Historical Vital Signs Acute Vital Signs Vital Response Date/Time Temperature (Fahrenheit) 97.0 degrees F (97.6 - 99.5) 02/14/2016 10:49pm Temperature Source Temporal Artery 02/14/2016 10:49pm Pulse Rate (adult) 80 bpm (60 - 90) 02/14/2016 11:40pm Respiratory Rate 16 bpm (12 - 24) 02/14/2016 11:40pm Blood Pressure 139/88 mm Hg 02/14/2016 11:40pm O2 Sat by Pulse Oximetry 92 % (90 - 100) 02/14/2016 11:40pm Oxygen Delivery Method 02/14/2016 10:49pm Pain Location Body Site Modifier 02/14/2016 11:26pm [...] Discharge/Depart Date Attending Provider Departed Emergency Room [place] 02/14/16 10:41pm 02/15/16 2:25am SHILA PERRY MD Departed Emergency Room [place] 01/09/16 2:09am 01/09/16 4:30am BELLE LE D.O. Departed Emergency Room [place] 01/07/16 11:21am 01/07/16 1:00pm TEDDY MARC MD Departed Emergency Room [place] 01/03/16 3:05pm 01/03/16 9:05pm SHILA PERRY MD Departed Emergency Room [place] 01/02/16 11:14am 01/02/16 4:25pm SHILA PERRY MD Departed Emergency Room [place] 12/31/15 11:37am 12/31/15 3:39pm LAY CAMPBELL MD Departed Emergency Room [place] 12/27/15 7:16pm 12/27/15 10:13pm DOROTEO PEDROZA DO Departed Emergency Room [place] 12/07/15 3:10pm 12/07/15 5:48pm SAMUEL WHITE DO Recent Diagnosis
--- OUTSIDE RECORDS SUMMARY | 2016-09-29 10:22 | XMS REPORT | Continuity of Care Document ---
Author Author [facility] Organization [facility] Address [facility] [address] [place] [address] Phone Unavailable Care Team Providers Care Phthalic Acid Purifier Name Role Phone STAFF, OTHER NOT ON PCP Unavailable Insurance Providers Payer Name Policy Number Subscriber Name Relationship [facility] [id number] Luz Marina Ralph 20 Self / Same As Patient Advance Directives Directive Response Recorded Date/Time Do you have an Advanced Directive? No 10/01/15 4:16pm Advance Directives No 10/27/15 3:58pm Living Will No 10/27/15 3:58pm Health Care Proxy No 07/15/16 6:47pm Power of Criminal Analyst for Health Care No 10/27/15 3:58pm Organ, Tissue, or Eye Donor Yes 12/27/15 7:21pm Do you have a signed organ donor card? No 10/27/15 3:58pm Chief Complaint and Reason for Visit Chief Complaint KIDNEY STONE Reason for Visit [id number] Problems Active Problems Medical Problem Onset Date Status Chest pain Unknown Acute Gastroenteritis Unknown Acute Insect bite (nonvenomous) of right forearm, initial encounter Unknown Acute Kidney stone on left side Unknown Acute Nausea and vomiting Unknown Acute [...] Denies Use 08/11/2012 10:08pm Alcohol Use none 07/15/2016 8:07pm Drug Use none 07/15/2016 8:07pm Sexual History Heterosexual 09/30/2015 8:47pm Employment Unemployeed 07/15/2016 8:07pm Query Response Start Date Stop Date Smoking Status Never smoker Hospital Discharge Instructions No hospital discharge instructions. Plan of Care Discharge Date 07/15/16 8:10pm Condition at Discharge Stable Instructions/Education Provided Kidney Stones (GEN) Prescriptions See Medication Section Additional Instructions/Education Drink lots of water to keep the kidneys functioning well. Her pain should improve dramatically within the next day or 2. If you continue to have pain I would check with your provider to evaluate other causes for your left flank pain. Functional Status Query Response Date Recorded Patient Behavior Cooperative Appropriate July 15, 2016 7:05pm Allergies, Adverse Reactions, Alerts Allergen Type Severity [...] Active 06/16/16 Metoclopramide Allergy Unknown Active 06/16/16 [place] Allergy Intermediate HIVES Active 06/16/16 SHELLFISH DERIVED Allergy Unknown Active 06/16/16 Immunizations Name Given Type Hx Diphtheria, Pertussis, Tetanus Vaccination Up To Date Historical Hx Influenza Vaccination Y Mar 2016 Historical Hx Pneumococcal Vaccination No Historical Hx Tetanus, Diphtheria Vaccination Y within last 4 years Historical Vital Signs Acute Vital Signs Vital Response Date/Time Temperature (Fahrenheit) 97.6 degrees F (97.6 - 99.5) 07/15/2016 7:05pm Temperature Source Temporal Artery 07/15/2016 7:05pm Pulse Rate (adult) 97 bpm (60 - 90) 07/15/2016 8:10pm Respiratory Rate 18 bpm (12 - 24) 07/15/2016 8:10pm Blood Pressure 92/67 mm Hg 07/15/2016 8:10pm O2 Sat by Pulse Oximetry 94 % (90 - 100) 07/15/2016 8:10pm Oxygen Delivery Method 07/15/2016 8:10pm Height 5 ft 5 in Weight 230 lb Body Mass Index 38.0 kg/m^2 Results Pending Laboratory Results Test Name Collection Date/Time Procedures Procedure Status Date Provider(s) Computed tomography of abdomen and pelvis without contrast Completed BELLE LE D.O. Encounters Encounter Location Arrival/Admit Date Discharge/Depart Date Attending Provider Departed Emergency Room [place] 07/15/16 6:49pm 07/15/16 8:10pm BELLE LE D.O. Departed Emergency Room [place] 06/16/16 11:02am 06/16/16 12:49pm BELLE LE D.O. Recent Diagnosis
--- OUTSIDE RECORDS SUMMARY | 2016-09-29 10:23 | XMS REPORT | CCD ---
Author Author [facility] Unknown Address [address] [place], [place] [address] Care Team Providers Care Customer Experience Manager Name Role Phone VESTA ER, JACQUELYN DO Attphys NIGHTMUTE ER, JACQUELYN DO Prisurg Vital Signs Unknown or Not Available. Allergies Allergy Code Allergy Type Reaction Status ERYTHROMYCIN 4053 Drug allergy Active COMPAZINE 742387 Drug allergy Active NSAID 0 Drug allergy Active IODINE 5933 Drug allergy Active CODEINE 2670 Drug allergy Active REGLAN 9230 Drug allergy Active Procedures Procedure Code Procedure Type Date ^CBC W/AUTO DIFF 5553183 SNOMED CT 01/11/[address] 01/11/[address] 01/11/2016 COMPREHENSIVE METABOLIC PANEL 779465451 SNOMED CT 2015 CBC W/ AUTO DIFF (RFLX MAN DIFF IF IND) 3780296 SNOMED CT 01/11/[address] 01/11/2016 TROPONIN-I ADV 417674417 SNOMED CT 01/11/2016 History of Immunizations Unknown or Not Available. Problems Unknown or Not Available. Results COMPREHENSIVE METABOLIC PANEL - Collect Date/Time: 01/11/2016 12:00 Test Name Code Test Result Test Units Test Ref Range GLUCOSE 2345-7 99 MG/DL L=70 H=100 SODIUM 2951-2 137 MEQ/L L=135 H=148 POTASSIUM 2823-3 3.5 MEQ/L L=3.5 H=5.3 CHLORIDE 2075-0 104 MEQ/L L=96 H=110 CO2 2028-9 21 MEQ/L L=22 H=29 BUN 3094-0 11 MG/DL L=8 H=22 CREATININE 2160-0 0.7 MG/DL L=0.6 H=1.6 SGOT/AST 1920-8 18 IU/L L=10 H=40 SGPT/ALT 1742-6 26 IU/L L=8 H=54 ALK PHOS 6768-6 73 IU/L L=35 H=115 TOTAL PROTEIN 2885-2 7.5 G/DL L=5.5 H=8.5 ALBUMIN 1751-7 4.1 G/DL L=3.1 H=5.4 TOTAL BILI 1975-2 0.2 MG/DL L=0.0 H=1.5 CALCIUM 70399-1 9.4 MG/DL L=8.2 H=10.6 AGE 35 yrs GFR NonAA 96 GFR AA 116 eGFR >60 N/A eGFR AA* >60 N/A CBC W/ AUTO DIFF (RFLX MAN DIFF IF IND) - Collect Date/Time: 01/11/2016 12:00 Test Name Code Test Result Test Units Test Ref Range WBC 20621-1 8.8 TH/CMM L=4.5 H=10.8 RBC 789-8 5.01 ML/CMM L=4.20 H=5.40 HGB 718-7 11.4 G/DL L=12.0 H=16.0 HCT 4544-3 37.2 % L=37.0 H=47.0 MCV 74 FL L=81 H=99 MCH 22.8 PG L=27.0 H=33.0 MCHC 30.6 G/DL L=31.0 H=36.0 RDW SD 37 FL L=36 H=50 RDW CV 13.7 % L=0.0 H=14.8 MPV 9.4 FL L=9.3 H=12.5 PLT 777-3 416 TH/CMM L=130 H=440 NRBC# 0.00 TH/CMM L=0.00 H=0.00 NRBC% 0.0 /100WBC L=0.0 H=2.0 %NEUT 64.9 % %LYMP 25.9 % %MONO 7.2 % %EOS 1.0 % %BASO 0.5 % #NEUT 5.73 TH/CMM L=2.10 H=8.20 #LYMP 2.28 TH/CMM L=0.90 H=5.20 #MONO 0.63 TH/CMM L=0.16 H=1.00 #EOS 0.09 TH/CMM L=0.00 H=0.80 #BASO 0.04 TH/CMM L=0.00 H=0.20 MANUAL DIFF NOT IND N/A BNP - Collect Date/Time: 01/11/2016 12:00 Test Name Code Test Result Test Units Test Ref Range BNP 89683-0 <10 PG/ML L=0 H=100 TEST - Collect Date/Time: 01/11/2016 12:00 Test Name Code Test Result Test Units Test Ref Range TEST 2118-8 NEGATIVE N/A TROPONIN-I ADV - Collect Date/Time: 01/11/2016 12:00 Test Name Code Test Result Test Units [place] [address]-0 <0.04 ng/mL L=0.04 H= 0.40 TSH - Collect Date/Time: 01/11/2016 12:00 Test Name Code Test Result Test Units Test Ref Range TSH 70535-9 0.94 mIU/L L=0.35 H=4.94 Active Medications Unknown or Not Available. Medications Administered During Visit Unknown or Not Available. Encounters Encounter Diagnosis Diagnosis Code Start Date Tachycardia 5889130 01/11/2016 Social History Smoking Status Code Start Date End Date Never smoker [id number] Patient Decision Aids Unknown or Not Available. Discharge Instructions You were admitted to [facility] on 01/11/2016 11:39 with a principal diagnosis of Tachycardia, unspecified You had the following tests done: BNP CBC W/ AUTO DIFF (RFLX MAN DIFF IF IND) COMPREHENSIVE METABOLIC PANEL TEST TROPONIN-I ADV TSH You were discharged from [facility] on 01/11/2016 14:38 Should you have any questions prior to [...]
--- OUTSIDE RECORDS SUMMARY | 2016-09-29 10:23 | XMS REPORT | Continuity of Care Document ---
Author Author [facility] Organization [facility] Address [facility] [address] [place] [address] Phone Unavailable Support Name Relationship Address Phone LAY CAMPBELL MD Caregiver [address] [place] [address] RAAD RALPH Next Of Kin [address] [place] [address] Insurance Providers Payer Name Policy Number Subscriber Name Relationship [facility] [id number] Valentin Ralph 18 Self / Same As Patient Advance Directives Directive Response Recorded Date/Time Do you have an Advanced Directive? No 10/01/15 4:16pm Advance Directives No 10/27/15 3:58pm Living Will No 10/27/15 3:58pm Health Care Proxy No 12/31/15 11:36am Power of Varnisher for Health Care No 10/27/15 3:58pm Organ, Tissue, or Eye Donor Yes 12/27/15 7:21pm Do you have a signed organ donor card? No 10/27/15 3:58pm Chief Complaint and Reason for Visit Chief Complaint TACHYCARDIA Reason for Visit [id number] Sinus tachycardia Problems Active Problems Medical Problem [...] Hours as needed for Nausea 10 12/27/15 Promethazine Hcl 25 Mg 25 Mg Oral 2-3 Times Daily for Nausea 10 Past Home Medications Medication Directions Ordered Status [...] Needed as needed for Nausea 12/07/15 Discontinued Social History Social History Problem Response Recorded Date/Time Smoking Status Never smoker 10/27/2015 7:06pm Tobacco Use Denies Use 08/11/2012 10:08pm Sexual History Heterosexual 09/30/2015 8:47pm Query Response Start Date Stop Date Smoking Status Never smoker Hospital Discharge Instructions No hospital discharge instructions. Plan of Care Discharge Date 12/31/15 3:39pm Condition at Discharge Stable Instructions/Education Provided Atrial Tachycardia (ED) Forms Provided WORK RELEASE Prescriptions See Medication Section Referrals your Physician - Tomorrow Functional Status Query Response Date Recorded Melvi Coma Scale Total 15 December 31, 2015 3:39pm Patient Behavior Cooperative December 31, 2015 3:39pm Allergies, Adverse Reactions, Alerts Allergen Type Severity Reaction Status Last Updated PROCHLORPERAZINE EDISYLATE Adverse Reaction Unknown HALLUCINATIONS Active 12/31/15 PROMETHAZINE HCL Allergy Unknown PASSES OUT Active 12/31/15 DICYCLOMINE HCL Adverse Reaction Mild STOMACH CRAMPING Active 12/31/15 KETOROLAC TROMETHAMINE Allergy Mild RASH Active 12/31/15 NSAIDS (NON-STEROIDAL ANTI-INFLAMMA Allergy Unknown Active 12/31/15 Iodine Allergy Mild RASH Active 12/31/15 Codeine Allergy Unknown Active 12/31/15 Ibuprofen Allergy Mild RASH Active 12/31/15 Erythromycin base Allergy Mild RASH Active 12/31/15 Tramadol Allergy Mild RASH Active 12/31/15 Metoclopramide Allergy Unknown Active 12/31/15 [place] Allergy Intermediate HIVES Active 12/31/15 SHELLFISH DERIVED Allergy Unknown Active 12/31/15 Immunizations Name Given Type Hx Diphtheria, Pertussis, Tetanus Vaccination current within 10yrs Historical Hx Influenza Vaccination Y fall 2014 Historical Hx Pneumococcal Vaccination No Historical Vital Signs Acute Vital Signs Vital Response Date/Time Temperature (Fahrenheit) 98.2 degrees F (97.6 - 99.5) 12/31/2015 3:39pm Temperature Source Temporal Artery 12/31/2015 3:39pm Pulse Rate (adult) 90 bpm (60 - 90) 12/31/2015 3:39pm Respiratory Rate 12 bpm (12 - 24) 12/31/2015 3:39pm Blood Pressure 102/70 mm Hg 12/31/2015 3:39pm O2 Sat by Pulse Oximetry 96 % (90 - 100) 12/31/2015 3:39pm Oxygen Delivery Method 12/31/2015 3:39pm Pain Intensity 6 10/02/2015 6:26am Pain Location Body Site Modifier 12/27/2015 9:03pm Pain Description 12/27/2015 9:03pm Height 5 ft 8 in Weight 231 lb Body Mass Index 35.0 kg/m^2 Results Laboratory Results Test Name Result Units Flags Reference Collection Date/Time Result Date/ Time Comments White Blood Count 6.2 K/uL 4.8-10.8 10/02/2015 9:5610/02/2015 10: 06am Red Blood Count 4.79 M/uL 4.20-5.40 10/02/2015 9:5610/02/2015 10: 06am Hemoglobin 11.7 gm/dL L 12.0-16.0 10/02/2015 9:5610/02/2015 10:06am Hematocrit 37.7 % 37.0-47.0 10/02/2015 9:5610/02/2015 10:06am Mean Corpuscular Volume 78.8 fL L 81.0-99.0 10/02/2015 9:562015 10:06am Mean Corpuscular Hemoglobin 24.4 pg L 27.0-31.0 10/02/2015 9:2015 10:06am Mean Corpuscular Hemoglobin Concent 31.2 g/dL 30.0-37.0 10/02/2015 9: 10/02/2015 10:06am Red Cell Distribution Width 15.6 % H 11.5-14.5 10/02/2015 9:562015 10:06am Platelet Count 331 K/uL 130-400 10/02/2015 9:5610/02/2015 10:06am Mean Platelet Volume 7.4 fL 7.4-10.4 10/02/2015 9:5610/02/2015 10: 06am Neutrophils (%) (Auto) 60.7 % 42.2-75.2 10/02/2015 9:am 10/02/2015 10 :06am Lymphocytes (%) (Auto) 28.3 % 20.5-51.1 10/02/2015 9:5610/02/2015 10 :06am Monocytes (%) (Auto) 6.3 % 1.7-9.3 10/02/2015 9:5610/02/2015 10: 06am Eosinophils (%) (Auto) 2.8 % 0-3 10/02/2015 9:5610/02/2015 10:06am Basophils (%) (Auto) 1.9 % H 0.0-1.0 10/02/2015 9:5610/02/2015 10: 06am Neutrophils # (Auto) 3.8 K/uL 2.0-6.9 10/02/2015 9:56am 10/02/2015 10: 06am Lymphocytes # (Auto) 1.8 K/uL 1.2-3.4 10/02/2015 9:5610/02/2015 10: 06am Monocytes # (Auto) 0.4 K/uL 0.1-0.6 10/02/2015 9:5610/02/2015 10: 06am Eosinophils # (Auto) 0.2 K/uL 0.0-0.7 10/02/2015 9:5610/02/2015 10: 06am Basophils # (Auto) 0.1 K/uL 0.0-0.2 10/02/2015 9:5610/02/2015 10: 06am D-Dimer 0.43 MG/L 0.19-0.50 09/30/2015 5:30pm 09/30/2015 9:54pm PLEASE NOTE REFERENCE RANGE Cut-off value for D-Dimer is 0.50 mg/L. The results of this test should always be interpreted in conjunction with pretest probability assesement to aid in the diagnosis of venous thromboembolism (VTE) [deep vein thrombosis (DVT) or pulmonary embolism (PE). Random Glucose 102 mg/dL 70-110 10/02/2015 9:10/02/2015 10:33am Blood Urea Nitrogen 8 mg/dL 7-18 10/02/2015 9:5610/02/2015 10:33am Creatinine 0.8 mg/dL 0.55-1.02 10/02/2015 9:5610/02/2015 10:33am Sodium Level 141 mEq/L 136-145 10/02/2015 9:5610/02/2015 10:33am Potassium Level 4.0 mEq/L 3.5-5.0 10/02/2015 9:5610/02/2015 10:33am Chloride Level 104 mEq/L 98-107 10/02/2015 9:5610/02/2015 10:33am Carbon Dioxide Level 27.9 mEq/L 21-32 10/02/2015 9:5610/02/2015 10: 33am Calcium Level 9.2 mg/dL 8.8-10.5 [...] X-ray of chest, PA and lateral views Completed 12/31/15 LAY CAMPBELL MD Encounters Encounter Location Arrival/Admit Date Discharge/Depart Date Attending Provider Departed Emergency Room [place] 12/31/15 11:37am 12/31/15 3:39pm LAY CAMPBELL MD Departed Emergency Room [place] 12/27/15 7:16pm 12/27/15 10:13pm DOROTEO PEDROZA DO Departed Emergency Room [place] 12/07/15 3:10pm 12/07/15 5:48pm SAMUEL WHITE DO Departed Emergency Room [place] 11/01/15 4:18pm 11/01/15 6:38pm BELLE LE D.O. Departed Emergency Room [place] 10/27/15 4:00pm 10/27/15 7:30pm DOROTEO PEDROZA DO Departed Emergency Room [place] 10/23/15 2:41pm 10/23/15 5:25pm DARLENE MEDRANO MD Departed Emergency Room [place] 10/14/15 7:01am 10/14/15 8:47am CONRADO CASE DO Discharged Inpatient (obs) [place] 09/30/15 9:28pm 10/02/15 8:40pm KOURTNEY BILLY MD Recent Diagnosis
--- OUTSIDE RECORDS SUMMARY | 2016-09-29 10:24 | XMS REPORT | Continuity of Care Document ---
Author Author [facility] Organization [facility] Address [facility] [address] [place] [address] Phone Unavailable Support Name Relationship Address Phone SHILA PERRY MD Caregiver [address] [place] [address] RAAD RALPH Next Of Kin [address] [place] [address] Insurance Providers Payer Name Policy Number Subscriber Name Relationship [facility] [id number] Valentin Ralph 20 Self / Same As Patient Advance Directives Directive Response Recorded Date/Time Do you have an Advanced Directive? No 10/01/15 4:16pm Advance Directives No 10/27/15 3:58pm Living Will No 10/27/15 3:58pm Health Care Proxy No 01/03/16 3:05pm Power of Power Reactor Operator for Health Care No 10/27/15 3:58pm Organ, Tissue, or Eye Donor Yes 12/27/15 7:21pm Do you have a signed organ donor card? No 10/27/15 3:58pm Chief Complaint and Reason for Visit Chief Complaint SYNCOPE Reason for Visit [id number] Syncope Problems Active Problems Medical Problem Onset Date [...] Denies Use 08/11/2012 10:08pm Alcohol Use none 01/03/2016 4:31pm Drug Use none 01/03/2016 4:31pm Sexual History Heterosexual 09/30/2015 8:47pm Query Response Start Date Stop Date Smoking Status Never smoker Hospital Discharge Instructions No hospital discharge instructions. Plan of Care Discharge Date 01/03/16 9:05pm Condition at Discharge Improved Instructions/Education Provided CHEST PAIN - NONSPECIFIC Syncope (ED) Prescriptions See Medication Section Additional Instructions/Education Call your retail store associate, Dr. Yates, tomorrow for follow appointment. Return to the ER with any worsening symptoms or new concerns. Functional Status Query Response Date Recorded Melvi Coma Scale Total 15 January 03, 2016 9:05pm Patient Behavior Appropriate January 03, 2016 9:05pm Allergies, Adverse Reactions, Alerts Allergen Type Severity [...] Active 01/03/16 Metoclopramide Allergy Unknown Active 01/03/16 [place] Allergy Intermediate HIVES Active 01/03/16 SHELLFISH DERIVED Allergy Unknown Active 01/03/16 Immunizations Name Given Type Hx Diphtheria, Pertussis, Tetanus Vaccination Up To Date Historical Hx Influenza Vaccination Yes Historical Hx Pneumococcal Vaccination Yes Historical Vital Signs Acute Vital Signs Vital Response Date/Time Temperature (Fahrenheit) 97.8 degrees F (97.6 - 99.5) 01/03/2016 9:00pm Temperature Source Temporal Artery 01/03/2016 9:00pm Pulse Rate (adult) 110 bpm (60 - 90) 01/03/2016 9:00pm Respiratory Rate 18 bpm (12 - 24) 01/03/2016 9:00pm Blood Pressure 115/74 mm Hg 01/03/2016 9:00pm O2 Sat by Pulse Oximetry 96 % (90 - 100) 01/03/2016 9:00pm Oxygen Delivery Method 01/03/2016 9:00pm Pain Location Body Site Modifier 12/27/2015 9:03pm [...] Eosinophils (%) (Auto) 2.3 % 0-3 10/14/2015 7:4010/14/2015 8:04am Basophils (%) (Auto) 1.3 % H 0.0-1.0 10/14/2015 7:4010/14/2015 8: 04am Neutrophils # (Auto) 3.2 K/uL 2.0-6.9 10/14/2015 7:4010/14/2015 8: 04am Lymphocytes # (Auto) 3.0 K/uL 1.2-3.4 10/14/2015 7:4010/14/2015 8: 04am Monocytes # (Auto) 0.4 K/uL 0.1-0.6 10/14/2015 7:4010/14/2015 8: 04am Eosinophils # (Auto) 0.2 K/uL [...] 13am Calcium Level 8.9 mg/dL 8.8-10.5 10/14/2015 7:40am 10/14/2015 8:13am Total Protein 7.6 gm/dL 6.4-8.2 10/14/2015 7:40am 10/14/2015 8:13am Albumin 3.3 gm/dL L 3.4-5.0 10/14/2015 [...] Glomerular Filtration Rate Calc 76.6 mL/min 10/14/2015 7:402015 8:13am Pending Laboratory Results Test Name Collection [...] SHILA PERRY MD Portable x-ray of chest Completed 01/03/16 SHILA PERRY MD Computed tomography angiography of chest without then with contrast Completed 01/03/16 SHILA PERRY MD Encounters Encounter Location Arrival/Admit Date Discharge/Depart Date Attending Provider Departed Emergency Room [place] 01/03/16 3:05pm 01/03/16 9:05pm SHILA PERRY MD Departed Emergency Room [place] 01/02/16 11:14am 01/02/16 4:25pm SHILA PERRY MD Departed Emergency Room [place] 12/31/15 11:37am 12/31/15 3:39pm LAY CAMPBELL MD Departed Emergency Room [place] 12/27/15 7:16pm 12/27/15 10:13pm DOROTEO PEDROZA DO Departed Emergency Room [place] 12/07/15 3:10pm 12/07/15 5:48pm SAMUEL WHITE DO Departed Emergency Room [place] 11/01/15 4:18pm 11/01/15 6:38pm BELLE LE D.O. Departed Emergency Room [place] 10/27/15 4:00pm 10/27/15 7:30pm DOROTEO PEDROZA DO Departed Emergency Room [place] 10/23/15 2:41pm 10/23/15 5:25pm DARLENE MEDRANO MD Departed Emergency Room [place] 10/14/15 7:01am 10/14/15 8:47am CONRADO CASE DO Recent Diagnosis
--- OUTSIDE RECORDS SUMMARY | 2016-09-29 10:25 | XMS REPORT | Continuity of Care Document ---
Author Author [facility] Organization [facility] Address [facility] [address] [place] [address] Phone Unavailable Support Name Relationship Address Phone SAMUEL WHITE DO Caregiver [address] [place] [address] RAAD RALPH Next Of Kin [address] [place] [address] Insurance Providers Payer Name Policy Number Subscriber Name Relationship [facility] [id number] Valentin Ralph 20 Self / Same As Patient Advance Directives Directive Response Recorded Date/Time Do you have an Advanced Directive? No 10/01/15 4:16pm Advance Directives No 10/27/15 3:58pm Living Will No 10/27/15 3:58pm Health Care Proxy No 12/07/15 3:07pm Power of Game Bird Farmer for Health Care No 10/27/15 3:58pm Organ, Tissue, or Eye Donor No 10/27/15 3:58pm Do you have a signed organ donor card? No 10/27/15 3:58pm Chief Complaint and Reason for Visit Chief Complaint HEART RACING Reason for Visit Sinus tachycardia Problems Active Problems Medical Problem [...] Needed as needed for Nausea 8 12/07/15 Past Home Medications Medication Directions Ordered Status [...] Denies Use 08/11/2012 10:08pm Alcohol Use none 12/07/2015 3:39pm Drug Use none 12/07/2015 3:39pm Sexual History Heterosexual 09/30/2015 8:47pm Employment Employed 12/07/2015 3:39pm Query Response Start Date Stop Date Smoking Status Never smoker Hospital Discharge Instructions No hospital discharge instructions. Plan of Care Discharge Date 12/07/15 5:48pm Condition at Discharge Stable Instructions/Education Provided Atrial Tachycardia (ED) Prescriptions See Medication Section Functional Status Query Response Date Recorded Patient Behavior Cooperative Appropriate December 07, 2015 3:10pm Allergies, Adverse Reactions, Alerts Allergen Type Severity [...] Active 11/01/15 Metoclopramide Allergy Unknown Active 11/01/15 [place] Allergy Intermediate HIVES Active 11/01/15 SHELLFISH DERIVED Allergy Unknown Active 11/01/15 Immunizations Name Given Type Hx Diphtheria, Pertussis, Tetanus Vaccination Up To Date Historical Hx Influenza Vaccination Y FALL 2014 Historical Hx Pneumococcal Vaccination Yes Historical Vital Signs Acute Vital Signs Vital Response Date/Time Temperature (Fahrenheit) 98.4 degrees F (97.6 - 99.5) 12/07/2015 5:29pm Temperature Source Temporal Artery 12/07/2015 5:29pm Pulse Rate (adult) 110 bpm (60 - 90) 12/07/2015 5:29pm Respiratory Rate 20 bpm (12 - 24) 12/07/2015 5:29pm Blood Pressure 105/66 mm Hg 12/07/2015 5:29pm O2 Sat by Pulse Oximetry 96 % (90 - 100) 12/07/2015 5:29pm Oxygen Delivery Method 12/07/2015 5:29pm Pain Intensity 6 10/02/2015 6:26am Pain Location Body Site Modifier 12/07/2015 5:17pm Pain Description 10/27/2015 5:37pm Height 5 ft 8 in Weight 224 lb Body Mass Index 34.0 kg/m^2 Results Laboratory Results Test Name Result Units Flags Reference Collection Date/Time Result Date/ Time Comments White Blood Count 9.1 K/uL 4.8-10.8 09/17/2015 6:45pm 09/17/2015 7: 19pm Red Blood Count 5.18 M/uL 4.20-5.40 09/17/2015 6:45pm 09/17/2015 7: 19pm Hemoglobin 12.7 gm/dL 12.0-16.0 09/17/2015 6:45pm 09/17/2015 7:19pm Hematocrit 38.7 % 37.0-47.0 09/17/2015 6:45pm 09/17/2015 7:19pm Mean Corpuscular Volume 74.7 fL L 81.0-99.0 09/17/2015 6:45pm 2015 7:19pm Mean Corpuscular Hemoglobin 24.4 pg L 27.0-31.0 09/17/2015 6:45pm 2015 7:19pm Mean Corpuscular Hemoglobin Concent 32.7 g/dL 30.0-37.0 09/17/2015 6: 45pm 09/17/2015 7:19pm Red Cell Distribution Width 14.7 % H 11.5-14.5 09/17/2015 6:45pm 2015 7:19pm Platelet Count 318 K/uL 130-400 09/17/2015 6:45pm 09/17/2015 7:19pm Mean Platelet Volume 7.1 fL L 7.4-10.4 09/17/2015 6:45pm 09/17/2015 7: 19pm Neutrophils (%) (Auto) 69.0 % 42.2-75.2 09/17/2015 6:45pm 09/17/2015 7: 19pm Lymphocytes (%) (Auto) 24.0 % 20.5-51.1 09/17/2015 6:45pm 09/17/2015 7: 19pm Monocytes (%) (Auto) 5.3 % 1.7-9.3 09/17/2015 6:45pm 09/17/2015 7:19pm Eosinophils (%) (Auto) 0.9 % 0-3 09/17/2015 6:45pm 09/17/2015 7:19pm Basophils (%) (Auto) 0.8 % 0.0-1.0 09/17/2015 6:45pm 09/17/2015 7:19pm Neutrophils # (Auto) 6.3 K/uL 2.0-6.9 09/17/2015 6:45pm 09/17/2015 7: 19pm Lymphocytes # (Auto) 2.2 K/uL 1.2-3.4 09/17/2015 6:45pm 09/17/2015 7: 19pm Monocytes # (Auto) 0.5 K/uL 0.1-0.6 09/17/2015 6:45pm 09/17/2015 7: 19pm Eosinophils # (Auto) 0.1 K/uL 0.0-0.7 09/17/2015 6:45pm 09/17/2015 7: 19pm Basophils # (Auto) 0.1 K/uL 0.0-0.2 09/17/2015 6:45pm 09/17/2015 7: 19pm Random Glucose 116 mg/dL H 70-110 09/17/2015 6:45pm 09/17/2015 7:30pm Blood Urea Nitrogen 14 mg/dL 7-18 09/17/2015 6:45pm 09/17/2015 7:30pm Creatinine 1.0 mg/dL 0.55-1.02 09/17/2015 6:45pm 09/17/2015 7:30pm Sodium Level 139 mEq/L 136-145 09/17/2015 6:45pm 09/17/2015 7:30pm Potassium Level 3.7 mEq/L 3.5-5.0 09/17/2015 6:45pm 09/17/2015 7:30pm Chloride Level 103 mEq/L 98-107 09/17/2015 6:45pm 09/17/2015 7:30pm Carbon Dioxide Level 22.7 mEq/L 21-32 09/17/2015 6:45pm 09/17/2015 7: 30pm Calcium Level 8.9 mg/dL 8.8-10.5 09/17/2015 6:45pm 09/17/2015 7:30pm Magnesium Level 1.9 mg/dL 1.8-2.4 09/17/2015 6:45pm 09/17/2015 7:30pm Total Protein 7.3 gm/dL 6.4-8.2 09/17/2015 6:45pm 09/17/2015 7:30pm Albumin 3.1 gm/dL L 3.4-5.0 09/17/2015 6:45pm 09/17/2015 7:30pm Total Bilirubin 0.30 mg/dL 0.00-1.00 09/17/2015 6:45pm 09/17/2015 7: 30pm Aspartate Amino Transf (AST/SGOT) 10 U/L L 15-37 09/17/2015 6:45pm 09/16 7:30pm Alanine Aminotransferase (ALT/SGPT) 21 U/L 12-78 09/17/2015 6:45pm 7:30pm Total Alkaline Phosphatase 71 U/L 46-116 09/17/2015 6:45pm 09/17/2015 7 :30pm Urine Color YELLOW YELLOW 09/17/2015 8:25pm 09/17/2015 8:43pm Urine Appearance SL CLOUDY H CLEAR 09/17/2015 8:25pm 09/17/2015 8: 43pm Urine Glucose (UA) NEGATIVE mg/dL NEGATIVE 09/17/2015 8:25pm 2015 8:43pm Urine Bilirubin NEGATIVE NEGATIVE 09/17/2015 8:pm 09/17/2015 8: 43pm Urine Ketones NEGATIVE mg/dL NEGATIVE 09/17/2015 8:25pm 09/17/2015 8: 43pm Urine Specific [place] 1.025 1.010-1.025 09/17/2015 8:25pm 2015 8:43pm Urine Occult Blood TRACE INTACT H NEGATIVE 09/17/2015 8:25pm 2015 8:43pm URINE CULTURE ORDERED PER MEDICAL STAFF-APPROVED PROTOCOL FOR LAB. Urine pH 5.5 5.0-8.0 09/17/2015 8:25pm 09/17/2015 8:43pm Urine Protein NEGATIVE mg/dL NEGATIVE 09/17/2015 8:25pm 09/17/2015 8: 43pm Urine Urobilinogen 0.2 mg/dL E.U./dL 0.2-1.0 09/17/2015 8:25pm 2015 8:43pm Urine Nitrate NEGATIVE NEGATIVE 09/17/2015 8:pm 09/17/2015 8:43pm Urine Leukocyte Esterase NEGATIVE NEGATIVE 09/17/2015 8:25pm 2015 8:43pm Urine RBC 3-4 /hpf H 0 09/17/2015 8:25pm 09/17/2015 8:43pm Urine WBC 3-4 /hpf 0-4 09/17/2015 8:25pm 09/17/2015 8:43pm Urine Squamous Epithelial Cells 6-8 /hpf 0-1 09/17/2015 8:25pm 2015 8:43pm Urine Bacteria 2+ H NEGATIVE 09/17/2015 8:25pm 09/17/2015 8:43pm Urine Mucus MODERATE H NEGATIVE 09/17/2015 8:25pm 09/17/2015 8:43pm Glomerular Filtration Rate Calc 67.9 mL/min 09/17/2015 6:45pm 2015 7:30pm Pending Laboratory Results Test Name Collection Date/Time Microbiology Results Procedure Source Result Collection Date/Time Result Date/Time Urine Culture Urine,Clean Catch ESCHERICHIA COLI 09/17/2015 8:25pm 2015 7:19am Procedures Procedure Status Date Provider(s) Computed tomography angiography of chest without then with contrast Active TEDDY MARC MD Portable x-ray of chest Active 09/30/15 SAMUEL WHITE DO Portable x-ray of chest Active 10/14/15 CONRADO CAES DO Ultrasound of artery of right lower extremity Active 10/23/15 DARLENE MEDRANO MD X-ray of chest, PA and lateral views Active 10/27/15 DOROTEO PEDROZA DO Portable x-ray of chest Completed 12/07/15 SAMUEL WHITE DO Encounters Encounter Location Arrival/Admit Date Discharge/Depart Date Attending Provider Departed Emergency Room [place] 12/07/15 3:10pm 12/07/15 5:48pm SAMUEL WHITE DO Departed Emergency Room [place] 11/01/15 4:18pm 11/01/15 6:38pm BELLE LE D.O. Departed Emergency Room [place] 10/27/15 4:00pm 10/27/15 7:30pm DOROTEO PEDROZA DO Departed Emergency Room [place] 10/23/15 2:41pm 10/23/15 5:25pm DARLENE MEDRANO MD Departed Emergency Room [place] 10/14/15 7:01am 10/14/15 8:47am CONRADO CASE DO Discharged Inpatient (obs) [place] 09/30/15 9:28pm 10/02/15 8:40pm KOURTNEY BILLY MD Departed Emergency Room [place] 09/25/15 2:44pm 09/25/15 6:50pm TEDDY MARC MD Departed Emergency Room [place] 09/17/15 3:49pm 09/17/15 9:50pm DARLENE MEDRANO MD Recent Diagnosis
--- OUTSIDE RECORDS SUMMARY | 2016-09-29 10:25 | XMS REPORT | Continuity of Care Document ---
Author Author [facility] Organization [facility] Address [facility] [address] [place] [address] Phone Unavailable Support Name Relationship Address Phone SHILA PERRY MD Caregiver [address] [place] [address] RAAD RALPH Next Of Kin [address] [place], [place] [id number] Insurance Providers Payer Name Policy Number Subscriber Name Relationship [facility] [id number] Valentin Ralph 20 Self / Same As Patient Advance Directives Directive Response Recorded Date/Time Do you have an Advanced Directive? No 10/01/15 4:16pm Advance Directives No 10/27/15 3:58pm Living Will No 10/27/15 3:58pm Health Care Proxy No 01/02/16 11:12am Power of Physical Therapy Nurse for Health Care No 10/27/15 3:58pm Organ, [...] Denies Use 08/11/2012 10:08pm Alcohol Use none 01/02/2016 11:38am Drug Use none 01/02/2016 11:38am Sexual History Heterosexual 09/30/2015 8:47pm Query Response Start Date Stop Date Smoking Status Never smoker Hospital Discharge Instructions No hospital discharge instructions. Plan of Care Discharge Date 01/02/16 4:25pm Condition at Discharge Stable Instructions/Education Provided Atrial Tachycardia (ED) Prescriptions See Medication Section Additional Instructions/Education return for 24-48 hour recheck if not significantly improved. return sooner if condition worsens, develops concerning symptoms. otherwise, follow up with your doctor in 1-2 days Functional Status Query Response Date Recorded [place] Coma Scale Total 15 January 02, 2016 11:15am Patient Behavior Cooperative Appropriate January 02, 2016 11:50am Allergies, Adverse Reactions, Alerts Allergen Type Severity [...] Active 12/31/15 Metoclopramide Allergy Unknown Active 12/31/15 [place] Allergy Intermediate HIVES Active 12/31/15 SHELLFISH DERIVED Allergy Unknown Active 12/31/15 Immunizations Name Given Type Hx Diphtheria, Pertussis, Tetanus Vaccination Up To Date Historical Hx Influenza Vaccination Yes Historical Hx Pneumococcal Vaccination Yes Historical Vital Signs Acute Vital Signs Vital Response Date/Time Temperature (Fahrenheit) 97.8 degrees F (97.6 - 99.5) 01/02/2016 11:50am Temperature Source Temporal Artery 01/02/2016 11:50am Pulse Rate (adult) 106 bpm (60 - 90) 01/02/2016 4:20pm Respiratory Rate 13 bpm (12 - 24) 01/02/2016 4:20pm Blood Pressure 96/58 mm Hg 01/02/2016 4:20pm O2 Sat by Pulse Oximetry 94 % (90 - 100) 01/02/2016 4:20pm Oxygen Delivery Method 01/02/2016 4:20pm Pain Location Body Site Modifier 12/27/2015 9:03pm Pain Description 12/27/2015 9:03pm Height 5 ft 8 in Weight 229 [...] Monocytes (%) (Auto) 6.4 % 1.7-9.3 10/14/2015 7:4010/14/2015 8:04am Eosinophils (%) (Auto) 2.3 % 0-3 [...] LAY CAMPBELL MD Portable x-ray of chest Completed 01/02/16 SHILA PERRY MD Encounters Encounter Location Arrival/Admit Date Discharge/Depart Date Attending Provider Departed Emergency Room [place] 01/02/16 11:14am 01/02/16 4:25pm SHILA PERRY MD Departed Emergency Room [place] 12/31/15 11:37am 12/31/15 3:39pm LAY CAMPBELL MD Departed Emergency Room [place] 12/27/15 7:16pm 12/27/15 10:13pm DOROTEO PEDROZA DO Departed Emergency Room [place] 12/07/15 3:10pm 12/07/15 5:48pm SAMUEL WHITE DO Departed Emergency Room [place] 11/01/15 4:18pm 11/01/15 6:38pm BELLE LE D.O. Departed Emergency Room [place] 10/27/15 4:00pm 10/27/15 7:30pm DOROTEO PEDROZA DO Departed Emergency Room [place] 10/23/15 2:41pm 10/23/15 5:25pm DARLENE MEDRANO MD Departed Emergency Room [place] 10/14/15 7:01am 10/14/15 8:47am CONRADO CASE DO Recent Diagnosis
--- OUTSIDE RECORDS SUMMARY | 2016-09-29 10:26 | XMS REPORT | Continuity of Care Document ---
Author Author [facility] Address Unknown Phone Unavailable Allergies Active Description Code Type Severity Reaction Onset Reported/Identified Relationship to Patient Clinical Status Yes codeine [id number] Drug Allergy Mild N/A 01/03/2009 Yes erythromycin base [id number] Drug Allergy Mild N/A 01/03/2009 Yes iodine [id number] Drug Allergy Mild N/A 01/03/2009 Yes metoclopramide [id number] Drug Allergy Mild N/A 01/03/2009 Yes prochlorperazine [id number] Drug Allergy Mild N/A 01/03/2009 Yes promethazine [id number] Drug Allergy Mild N/A 01/03/2009 Yes pneumococcal vaccine [id number] Drug Allergy Mild N/A 01/15/2009 Yes pseudoephedrine [id number] Drug Allergy Mild N/A 01/15/2009 Yes fludrocortisone [id number] Drug Allergy Severe CHF 03/05/2010 Yes dicyclomine [id number] Drug Allergy Mild RASH 03/05/2010 Yes ketorolac [id number] Drug Allergy Mild RASH 03/05/2010 Yes dicyclomine HCl [id number] Drug Allergy Unknown N/A 01/13/2015 Yes ibuprofen [id number] Drug Allergy Unknown N/A 01/13/2015 Yes ketorolac tromethamine [id number] Drug Allergy Unknown N/A 01/13/2015 Yes metoclopramide HCl [id number] Drug Allergy Unknown N/A 01/13/2015 Yes prochlorperazine edisylate [id number] Drug Allergy Unknown N/A 01/13/2015 Yes prochlorperazine maleate [id number] Drug Allergy Unknown N/ A 01/13/2015 Yes promethazine HCl [id number] Drug Allergy Unknown N/A 01/13/2015 Yes tramadol [id number] Drug Allergy Unknown N/A 01/13/2015 Yes codeine codeine Drug Allergy Unknown RASH 11/30/2015 Yes erythromycin base erythromycin base Drug Allergy Unknown SEVERE STOMACH CRAMPS WITH VOMITING Yes Iodine and Iodide Containing Produc Iodine and Iodide Containing Produc Drug Allergy Unknown STOPPED BREATHING 11/30/2015 Yes metoclopramide metoclopramide Drug Allergy Unknown HALLUCINATIONS 11/30/2015 Yes prochlorperazine prochlorperazine Drug Allergy Unknown HALLUCINATIONS 11/30/2015 Medications Problems Date Dx Coded Attending Type Code Diagnosis Diagnosed By 03/05/2010 Ot 788.1 03/05/2010 Ot 789.09 03/19/2012 Ot 719.06 JOINT EFFUSION-L/LEG 03/19/2012 Ot 719.46 JOINT PAIN-L/LEG 03/24/2012 Ot 780.39 OTHER CONVULSIONS 03/24/2012 Ot 790.99 BLOOD EXAM - OT NONSPECIFIC FINDINGS 03/24/2012 Ot V58.69 OT MED,LT,CURRENT USE 03/24/2012 Ot 780.39 OTHER CONVULSIONS 03/24/2012 Ot V58.69 OT MED,LT,CURRENT USE 03/25/2012 Ot 780.39 OTHER CONVULSIONS 10/26/2012 300.4 DEPRESSION WITH ANXIETY 10/26/2012 345.90 EPILEPSY AND RECURRENT SEIZURES 10/26/2012 427.9 SINUS ARRHYTHMIA 10/26/2012 724.2 lower back pain 10/26/2012 788.1 pain during urination (dysuria) 10/26/2012 300.4 DEPRESSION WITH ANXIETY 10/26/2012 345.90 EPILEPSY AND RECURRENT SEIZURES 10/26/2012 427.9 SINUS ARRHYTHMIA 10/26/2012 724.2 lower back pain 10/26/2012 788.1 pain during urination (dysuria) 10/26/2012 300.4 DEPRESSION WITH ANXIETY 10/26/2012 345.90 EPILEPSY AND RECURRENT SEIZURES 10/26/2012 427.9 SINUS ARRHYTHMIA 10/26/2012 724.2 lower back pain 10/26/2012 788.1 pain during urination (dysuria) 10/26/2012 300.4 DEPRESSION WITH ANXIETY 10/26/2012 345.90 EPILEPSY AND RECURRENT SEIZURES 10/26/2012 427.9 SINUS ARRHYTHMIA 10/26/2012 724.2 lower back pain 10/26/2012 788.1 pain during urination (dysuria) 10/26/2012 300.4 DEPRESSION WITH ANXIETY 10/26/2012 345.90 EPILEPSY AND RECURRENT SEIZURES 10/26/2012 427.9 SINUS ARRHYTHMIA 10/26/2012 724.2 lower back pain 10/26/2012 788.1 pain during urination (dysuria) 10/26/2012 300.4 DEPRESSION WITH ANXIETY 10/26/2012 345.90 EPILEPSY AND RECURRENT SEIZURES 10/26/2012 427.9 SINUS ARRHYTHMIA 10/26/2012 724.2 lower back pain 10/26/2012 788.1 pain during urination (dysuria) 10/26/2012 300.4 DEPRESSION WITH ANXIETY 10/26/2012 345.90 EPILEPSY AND RECURRENT SEIZURES 10/26/2012 427.9 SINUS ARRHYTHMIA 10/26/2012 724.2 lower back pain 10/26/2012 788.1 pain during urination (dysuria) 10/26/2012 300.4 DEPRESSION WITH ANXIETY 10/26/2012 345.90 EPILEPSY AND RECURRENT SEIZURES 10/26/2012 427.9 SINUS ARRHYTHMIA 10/26/2012 724.2 lower back pain 10/26/2012 788.1 pain during urination (dysuria) 10/26/2012 300.4 DEPRESSION WITH ANXIETY 10/26/2012 345.90 EPILEPSY AND RECURRENT SEIZURES 10/26/2012 427.9 SINUS ARRHYTHMIA 10/26/2012 724.2 lower back pain 10/26/2012 788.1 pain during urination (dysuria) 10/26/2012 300.4 DEPRESSION WITH ANXIETY 10/26/2012 345.90 EPILEPSY AND RECURRENT SEIZURES 10/26/2012 427.9 SINUS ARRHYTHMIA 10/26/2012 724.2 lower back pain 10/26/2012 788.1 pain during urination (dysuria) 10/26/2012 300.4 DEPRESSION WITH ANXIETY 10/26/2012 345.90 EPILEPSY AND RECURRENT SEIZURES 10/26/2012 427.9 SINUS ARRHYTHMIA 10/26/2012 724.2 lower back pain 10/26/2012 788.1 pain during urination (dysuria) 10/26/2012 TANVIR BENSON DO K 300.4 DEPRESSION WITH ANXIETY 10/26/2012 TANVIR BENSON DO 345.90 EPILEPSY AND RECURRENT SEIZURES 10/26/2012 TANVIR BENSON DO K 427.9 SINUS ARRHYTHMIA 10/26/2012 TANVIR BENSON DO K 724.2 lower back pain 10/26/2012 BENSON DO, TANVIR K 788.1 pain during urination (dysuria) 10/26/2012 BENSON DO, TANVIR K 300.4 DEPRESSION WITH ANXIETY 10/26/2012 BENSON DO, TANVIR K 345.90 EPILEPSY AND RECURRENT SEIZURES 10/26/2012 BENSON DO, TANVIR K 427.9 SINUS ARRHYTHMIA 10/26/2012 BENSON DO, TANVIR K 724.2 lower back pain 10/26/2012 BENSON DO, TANVIR K 788.1 pain during urination (dysuria) 10/26/2012 BENSON DO, TANVIR K 300.4 DEPRESSION WITH ANXIETY 10/26/2012 BENSON DO, TANVIR K 345.90 EPILEPSY AND RECURRENT SEIZURES 10/26/2012 BENSON DO, TANVIR K 427.9 SINUS ARRHYTHMIA 10/26/2012 BENSON DO, TANVIR K 724.2 lower back pain 10/26/2012 BENSON DO, TANVIR K 788.1 pain during urination (dysuria) 10/26/2012 BENSON DO, TANVIR K 300.4 DEPRESSION WITH ANXIETY 10/26/2012 BENSON DO, TANVIR K 345.90 EPILEPSY AND RECURRENT SEIZURES 10/26/2012 BENSON DO, TANVIR K 427.9 SINUS ARRHYTHMIA 10/26/2012 BENSON DO, TANVIR K 724.2 lower back pain 10/26/2012 BENSON DO, TANVIR K 788.1 pain during urination (dysuria) 10/26/2012 MICHELLE GALEAS MD 300.4 DEPRESSION WITH ANXIETY 10/26/2012 MICHELLE GALEAS MD 345.90 EPILEPSY AND RECURRENT SEIZURES 10/26/2012 MICHELLE GALEAS MD N 427.9 SINUS ARRHYTHMIA 10/26/2012 MICHELLE GALEAS MD 724.2 lower back pain 10/26/2012 MICHELLE GALEAS MD N 788.1 pain during urination (dysuria) 10/26/2012 MICHELLE GALEAS MD 300.4 DEPRESSION WITH ANXIETY 10/26/2012 MICHELLE GALEAS MD 345.90 EPILEPSY AND RECURRENT SEIZURES 10/26/2012 MICHELLE GALEAS MD N 427.9 SINUS ARRHYTHMIA 10/26/2012 MICHELLE GALEAS MD N 724.2 lower back pain 10/26/2012 MICHELLE GALEAS MD 788.1 pain during urination (dysuria) 11/03/2012 277.7 DYSMETABOLIC SYNDROME X 11/03/2012 277.7 DYSMETABOLIC SYNDROME X 11/03/2012 277.7 DYSMETABOLIC SYNDROME X 11/03/2012 277.7 DYSMETABOLIC SYNDROME X 11/03/2012 277.7 DYSMETABOLIC SYNDROME X 11/03/2012 277.7 DYSMETABOLIC SYNDROME X 11/03/2012 277.7 DYSMETABOLIC SYNDROME X 11/03/2012 277.7 DYSMETABOLIC SYNDROME X 11/03/2012 277.7 DYSMETABOLIC SYNDROME X 11/03/2012 BENSON DO TANVIR K 277.7 DYSMETABOLIC SYNDROME X 11/03/2012 BENSON DO TANVIR K 277.7 DYSMETABOLIC SYNDROME X 11/03/2012 BENSON DO TANVIR K 277.7 DYSMETABOLIC SYNDROME X 11/03/2012 BENSON DO TANVIR K 277.7 DYSMETABOLIC SYNDROME X 11/03/2012 MICHELLE GALEAS MD 277.7 DYSMETABOLIC SYNDROME X 11/03/2012 MICHELLE GALEAS MD 277.7 DYSMETABOLIC SYNDROME X 11/12/2012 780.52 insomnia 11/12/2012 780.52 insomnia 11/12/2012 780.52 insomnia 11/12/2012 780.52 insomnia 11/12/2012 780.52 insomnia 11/12/2012 780.52 insomnia 11/12/2012 780.52 insomnia 11/12/2012 780.52 insomnia 11/12/2012 BENSON DO TANVIR K 780.52 insomnia 11/12/2012 BENSON DO TANVIR K 780.52 insomnia 11/12/2012 BENSON DO TANVIR K 780.52 insomnia 11/12/2012 BENSON DO TANVIR K 780.52 insomnia 11/12/2012 MICHELLE GALEAS MD 780.52 insomnia 11/12/2012 MICHELLE GALEAS MD 780.52 insomnia 11/17/2012 595.2 OTHER CHRONIC CYSTITIS 11/17/2012 599.70 HEMATURIA UNSPECIFIED 11/17/2012 789.69 ABDOMINAL TENDERNESS OTHER SPECIFIED SITE 11/17/2012 595.2 OTHER CHRONIC CYSTITIS 11/17/2012 599.70 HEMATURIA UNSPECIFIED 11/17/2012 789.69 ABDOMINAL TENDERNESS OTHER SPECIFIED SITE 11/17/2012 595.2 OTHER CHRONIC CYSTITIS 11/17/2012 599.70 HEMATURIA UNSPECIFIED 11/17/2012 789.69 ABDOMINAL TENDERNESS OTHER SPECIFIED SITE 11/17/2012 595.2 OTHER CHRONIC CYSTITIS 11/17/2012 599.70 HEMATURIA UNSPECIFIED 11/17/2012 789.69 ABDOMINAL TENDERNESS OTHER SPECIFIED SITE 11/17/2012 595.2 OTHER CHRONIC CYSTITIS 11/17/2012 599.70 HEMATURIA UNSPECIFIED 11/17/2012 789.69 ABDOMINAL TENDERNESS OTHER SPECIFIED SITE 11/17/2012 595.2 OTHER CHRONIC CYSTITIS 11/17/2012 599.70 HEMATURIA UNSPECIFIED 11/17/2012 789.69 ABDOMINAL TENDERNESS OTHER SPECIFIED SITE 11/17/2012 595.2 OTHER CHRONIC CYSTITIS 11/17/2012 599.70 HEMATURIA UNSPECIFIED 11/17/2012 789.69 ABDOMINAL TENDERNESS OTHER SPECIFIED SITE 11/17/2012 BENSON DO, TANVIR K 595.2 OTHER CHRONIC CYSTITIS 11/17/2012 BENSON DO, TANVIR K 599.70 HEMATURIA UNSPECIFIED 11/17/2012 BENSON DO, TANVIR K 789.69 ABDOMINAL TENDERNESS OTHER SPECIFIED SITE 11/17/2012 BENSON DO, TANVIR K 595.2 OTHER CHRONIC CYSTITIS 11/17/2012 BENSON DO, TANVIR K 599.70 HEMATURIA UNSPECIFIED 11/17/2012 BENSON DO, TANVIR K 789.69 ABDOMINAL TENDERNESS OTHER SPECIFIED SITE 11/17/2012 BENSON DO, TANVIR K 595.2 OTHER CHRONIC CYSTITIS 11/17/2012 BENSON DO, TANVIR K 599.70 HEMATURIA UNSPECIFIED 11/17/2012 BENSON DO, TANVIR K 789.69 ABDOMINAL TENDERNESS OTHER SPECIFIED SITE 11/17/2012 BENSON DO, TANVIR K 595.2 OTHER CHRONIC CYSTITIS 11/17/2012 BENSON DO, TANVIR K 599.70 HEMATURIA UNSPECIFIED 11/17/2012 BENSON DO, TANVIR K 789.69 ABDOMINAL TENDERNESS OTHER SPECIFIED SITE 11/17/2012 MICHELLE GALEAS MD N 595.2 OTHER CHRONIC CYSTITIS 11/17/2012 MICHELLE GALEAS MD N 599.70 HEMATURIA UNSPECIFIED 11/17/2012 MICHELLE GALEAS MD 789.69 ABDOMINAL TENDERNESS OTHER SPECIFIED SITE 11/17/2012 MICHELLE GALEAS MD N 595.2 OTHER CHRONIC CYSTITIS 11/17/2012 MICHELLE GALEAS MD 599.70 HEMATURIA UNSPECIFIED 11/17/2012 GUDELIA TREVINO, MICHELLE N 789.69 ABDOMINAL TENDERNESS OTHER SPECIFIED SITE 11/26/2012 590.2 KIDNEY STONES 11/26/2012 590.2 KIDNEY STONES 11/26/2012 590.2 KIDNEY STONES 11/26/2012 590.2 KIDNEY STONES 11/26/2012 590.2 KIDNEY STONES 11/26/2012 590.2 KIDNEY STONES 11/26/2012 BENSON DO, TANVIR K 590.2 KIDNEY STONES 11/26/2012 BENSON DO, TANVIR K 590.2 KIDNEY STONES 11/26/2012 BENSON DO, TANVIR K 590.2 KIDNEY STONES 11/26/2012 BENSON DO, TANVIR K 590.2 KIDNEY STONES 11/26/2012 MICHELLE GALEAS MD 590.2 KIDNEY STONES 11/26/2012 MICHELLE GALEAS MD 590.2 KIDNEY STONES 11/26/2012 ANGELINE TREVINO, JOYCE T Ot 599.0 URIN TRACT INFECTION NOS 11/26/2012 ANGELINE TREVINO, JOYCE T Ot 599.70 HEMATURIA, UNSPECIFIED 11/26/2012 ANGELINE TREVINO, JOYCE T Ot 789.09 ABDOMINAL PAIN, OTHER SPECIFIED SITE 12/15/2012 309.81 AN PTSD 12/15/2012 301.83 PD BORDERLINE 12/15/2012 309.81 AN PTSD 12/15/2012 301.83 PD BORDERLINE 12/15/2012 309.81 AN PTSD 12/15/2012 301.83 PD BORDERLINE 12/15/2012 309.81 AN PTSD 12/15/2012 301.83 PD BORDERLINE 12/15/2012 309.81 AN PTSD 12/15/2012 BENSON DO, TANVIR K 301.83 PD BORDERLINE 12/15/2012 BENSON DO, TANVIR K 309.81 AN PTSD 12/15/2012 BENSON DO, TANVIR K 301.83 PD BORDERLINE 12/15/2012 BENSON DO, TANVIR K 309.81 AN PTSD 12/15/2012 BENSON DO, TANVIR K 301.83 PD BORDERLINE 12/15/2012 BENSON DO, TANVIR K 309.81 AN PTSD 12/15/2012 BENSON DO, TANVIR K 301.83 PD BORDERLINE 12/15/2012 BENSON DO, TANVIR K 309.81 AN PTSD 12/15/2012 MICHELLE GALEAS MD 301.83 PD BORDERLINE 12/15/2012 MICHELLE GALEAS MD 309.81 AN PTSD 12/15/2012 MICHELLE GALEAS MD 301.83 PD BORDERLINE 12/15/2012 MICHELLE GALEAS MD N 309.81 AN PTSD 12/24/2012 V58.69 MEDICATION HIGH RISK 12/24/2012 V58.69 MEDICATION HIGH RISK 12/24/2012 V58.69 MEDICATION HIGH RISK 12/24/2012 V58.69 MEDICATION HIGH RISK 12/24/2012 BENSON DO, TANVIR K V58.69 MEDICATION HIGH RISK 12/24/2012 BENSON DO, TANVIR K V58.69 MEDICATION HIGH RISK 12/24/2012 BENSON DO, TANVIR K V58.69 MEDICATION HIGH RISK 12/24/2012 BENSON DO, TANVIR K V58.69 MEDICATION HIGH RISK 12/24/2012 MICHELLE GALEAS MD V58.69 MEDICATION HIGH RISK 12/24/2012 MICHELLE GALEAS MD V58.69 MEDICATION HIGH RISK 03/01/2013 826.0 FX TOE(S) 03/01/2013 BENSON DO, TANVIR K 826.0 FX TOE(S) 03/01/2013 BENSON DO, TANVIR K 826.0 FX TOE(S) 03/01/2013 BENSON DO, TANVIR K 826.0 FX TOE(S) 03/01/2013 BENSON DO, TANVIR K 826.0 FX TOE(S) 03/01/2013 MICHELLE GALEAS MD 826.0 FX TOE(S) 03/01/2013 MICHELLE GALEAS MD 826.0 FX TOE(S) 03/17/2013 BENSON DO, TANVIR K 477.9 RHINITIS 03/17/2013 BENSON DO, TANVIR K 477.9 RHINITIS 03/17/2013 BENSON DO, TANVIR K 477.9 RHINITIS 03/17/2013 BENSON DO, TANVIR K 477.9 RHINITIS 03/17/2013 MICHELLE GALEAS MD 477.9 RHINITIS 03/17/2013 MICHELLE GALEAS MD 477.9 RHINITIS 05/07/2013 BENSON DO TANVIR K 919.4 INSECT BITE NONVENOMOUS OF OTHER MULTIPLE AND UNSPECIFIED SITES WITHOUT INFECTION 05/07/2013 TANVIR BENSON DO K 919.4 INSECT BITE NONVENOMOUS OF OTHER MULTIPLE AND UNSPECIFIED SITES WITHOUT INFECTION 05/07/2013 MICHELLE GALEAS MD N 919.4 INSECT BITE NONVENOMOUS OF OTHER MULTIPLE AND UNSPECIFIED SITES WITHOUT INFECTION 05/07/2013 MICHELLE GALEAS MD 919.4 INSECT BITE NONVENOMOUS OF OTHER MULTIPLE AND UNSPECIFIED SITES WITHOUT INFECTION 06/23/2013 TAVNIR BENSON DO K 787.01 NAUSEA WITH VOMITING 06/23/2013 TANVIR BENSON DO K 789.01 ABDOMINAL PAIN RIGHT UPPER QUADRANT 06/23/2013 MICHELLE GALEAS MD 787.01 NAUSEA WITH VOMITING 06/23/2013 MICHELLE GALEAS MD 789.01 ABDOMINAL PAIN RIGHT UPPER QUADRANT 06/23/2013 MICHELLE GALEAS MD 787.01 NAUSEA WITH VOMITING 06/23/2013 MICHELLE GALEAS MD 789.01 ABDOMINAL PAIN RIGHT UPPER QUADRANT 06/25/2013 JOYCE MARCUS MD Ot 345.90 EPILEPSY UNSPEC W/O MENTION INTRACTABLE 06/25/2013 JOYCE MARCUS MD Ot 787.01 NAUSEA WITH VOMITING 06/25/2013 JOYCE MARCUS MD Ot 787.91 DIARRHEA 06/25/2013 JOYCE MARCUS MD Ot 789.00 ABDOMINAL PAIN, UNSPECIFIED SITE 07/14/2013 MICHELLE GALEAS MD Ot 250.00 DIAB TEJA WO COMPL, TYPE II OR UNSPEC TY 07/14/2013 MICHELLE GALEAS MD Ot 272.0 PURE HYPERCHOLESTEROLEM 07/14/2013 MICHELLE GALEAS MD Ot 309.81 POSTTRAUMATIC STRESS DISORDER 07/14/2013 MICHELLE GALEAS MD Ot 311 DEPRESSIVE DISORDER NEC 07/14/2013 MICHELLE GALEAS MD Ot 337.9 AUTONOMIC NERVE DIS NEC 07/14/2013 MICHELLE GALEAS MD Ot 345.90 EPILEPSY UNSPEC W/O MENTION INTRACTABLE 07/14/2013 MICHELLE GALEAS MD Ot 522.5 PERIAPICAL ABSCESS 07/14/2013 MICHELLE GALEAS MD Ot 786.50 CHEST PAIN NOS 07/14/2013 MICHELLE GALEAS MD Ot 787.01 NAUSEA WITH VOMITING 07/14/2013 GUDELIA MD, MICHELLE N Ot 789.00 ABDOMINAL PAIN, UNSPECIFIED SITE 01/13/2015 ROSI MCGOWAN BLENDING TANK TENDER Ot 250.00 01/13/2015 ROSI MCGOWAN BLENDING TANK TENDER Ot 599.0 01/13/2015 ROSI MCGOWAN BLENDING TANK TENDER Ot 724.5 01/13/2015 MICHELLE GALEAS MD Ot 787.01 01/13/2015 MICHELLE GALEAS MD Ot 787.91 01/13/2015 MICHELLE GALEAS MD Ot 789.01 01/13/2015 GUDELIA TREVINO, MICHELLE Goetz Ot 790.5 02/09/2015 LOGAN DO, POLLO K Ot 558.9 02/09/2015 LOGAN DO, POLLO K Ot 599.0 02/09/2015 LOGAN DO, POLLO K Ot 789.00 02/11/2015 ROSI MCGOWAN BLENDING TANK TENDER Ot 250.00 02/11/2015 ROSI MCGOWAN BLENDING TANK TENDER Ot 599.0 02/11/2015 ROSI MCGOWAN BLENDING TANK TENDER Ot 599.70 08/05/2015 SUSHANT BE L Ot R00.0 TACHYCARDIA, UNSPECIFIED 08/05/2015 SUSHANT BE Ot R00.2 PALPITATIONS 08/05/2015 SUSHANT BE Ot R07.89 OTHER CHEST PAIN 08/05/2015 SUSHANT BE Ot Z86.79 PERSONAL HISTORY OF OTHER DISEASES OF TH 09/06/2015 ROSI MCGOWAN BLENDING TANK TENDER Ot R00.0 TACHYCARDIA, UNSPECIFIED 09/08/2015 ROSI MCGOWAN BLENDING TANK TENDER Ot R10.30 LOWER ABDOMINAL PAIN, UNSPECIFIED 09/08/2015 ROSI MCGOWAN BLENDING TANK TENDER Ot R11.0 NAUSEA 09/08/2015 ROSI MCGOWAN BLENDING TANK TENDER Ot R19.7 DIARRHEA, UNSPECIFIED 09/08/2015 ROSI MCGOWAN BLENDING TANK TENDER Ot Z53.29 PROC/TRTMT NOT CRD OUT BEC PT DECISION F 12/21/2015 GUDELIA TREVINO, MICHELLE Goetz Ot 787.01 NAUSEA WITH VOMITING 12/21/2015 MICHELLE GALEAS MD Ot 787.91 DIARRHEA 12/21/2015 MICHELLE GALEAS MD Ot 789.01 ABDOMINAL PAIN, RIGHT UPPER QUADRANT 12/21/2015 MICHELLE GALEAS MD Ot 790.5 ABN SERUM ENZY LEVEL NEC 12/21/2015 YI MARIO ALBERTO WILKINS Ot R10.84 GENERALIZED ABDOMINAL PAIN 12/21/2015 MARIO ALBERTO RICHMOND DO Ot R11.2 NAUSEA WITH VOMITING, UNSPECIFIED 12/22/2015 YI MARIO ALBERTO WILKINS Ot R10.84 GENERALIZED ABDOMINAL PAIN 12/22/2015 YI DO, MARIO ALBERTO Ortega Ot R11.2 NAUSEA WITH VOMITING, UNSPECIFIED 01/11/2016 JUAN BOLANOS MD Ot R00.0 TACHYCARDIA, UNSPECIFIED 01/11/2016 JUAN BOLANOS MD, Ot R11.2 NAUSEA WITH VOMITING, UNSPECIFIED 01/12/2016 JUAN BOLANOS MD, Ot R00.0 TACHYCARDIA, UNSPECIFIED 01/12/2016 JUAN BOLANOS MD, Ot R11.2 NAUSEA WITH VOMITING, UNSPECIFIED 01/17/2016 FRANCA ANGUIANO MD Ot E11.9 TYPE 2 DIABETES MELLITUS WITHOUT COMPLIC 01/17/2016 FRANCA ANGUIANO MD Ot F43.10 POST-TRAUMATIC STRESS DISORDER, UNSPECIF 01/17/2016 FRANCA ANGUIANO MD Ot G25.81 RESTLESS LEGS SYNDROME 01/17/2016 FRANCA ANGUIANO MD Ot J18.9 PNEUMONIA, UNSPECIFIED ORGANISM 01/17/2016 FRANCA ANGUIANO MD Ot K21.9 GASTRO-ESOPHAGEAL REFLUX DISEASE WITHOUT 01/17/2016 FRANCA ANGUIANO MD Ot N20.0 CALCULUS OF KIDNEY 01/17/2016 FRANCA ANGUIANO MD Ot R00.0 TACHYCARDIA, UNSPECIFIED 01/17/2016 FRANCA ANGUIANO MD Ot R07.9 CHEST PAIN, UNSPECIFIED 01/26/2016 POLLO FORD DO Ot R00.0 TACHYCARDIA, UNSPECIFIED 01/26/2016 ELLA FORD DOA K Ot R07.89 OTHER CHEST PAIN 01/26/2016 LOGAN DO POLLO K Ot R07.9 CHEST PAIN, UNSPECIFIED 01/26/2016 LOGAN WILKINS POLLO K Ot 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 01/29/2016 ELLA FORD DOA K Ot R00.0 TACHYCARDIA, UNSPECIFIED 01/29/2016 ELLA FORD DOA Waqar Ot R07.89 OTHER CHEST PAIN 01/29/2016 POLLO FORD DO Ot R07.9 CHEST PAIN, UNSPECIFIED 01/29/2016 LOGAN WILKINS POLLO Zavaleta Ot Z79.891 CARE HOME (CURRENT) USE OF OPIATE ANALGE 02/08/2016 JUAN BOLANOS MD Ot R00.0 TACHYCARDIA, UNSPECIFIED 02/08/2016 JUAN BOLANOS MD Ot R11.2 NAUSEA WITH VOMITING, UNSPECIFIED 03/09/2016 MARIO ALBERTO RICHMOND DO Ot K52.9 NONINFECTIVE GASTROENTERITIS AND COLITIS 03/09/2016 MARIO ALBERTO RICHMOND DO Ot R10.84 GENERALIZED ABDOMINAL PAIN 03/09/2016 MARIO ALBERTO RICHMOND DO Ot R11.10 VOMITING, UNSPECIFIED Procedures Code Description [place] [address] UA LONG DIP 10/26 62645 URINE DRUG SCREEN (IN-HOUSE) 10/26/2012 01684 ROUTINE VENIPUNCTURE 10/27/2012 34125 CMP 10/27/2012 43627 LIPID PANEL 10/27 14683 CBC 10/27/2012 12881 ESR/SED RATE THYANA THYROID ANALYZER 10/27/2012 65161 UA LONG DIP 11/17 80644 CULTURE URINE 01339 UA LONG DIP 11/[address] ABDOMEN & PELVIS W/O CONTRAST 12/01/2012 83066 URINE DRUG SCREEN (IN-HOUSE) 12/24/2012 20623 PSYCH DIAG EVAL W/MED SRVCS 12/25/2012 35891 LYME EIA W/WEST BLOT 05/07/2013 59763 EHRLICHIA ANTIBODY 05/07/2013 63414 TULAREMIA ANTIBODY 05/07/2013 34966 ZENON AK SPOT FEVER 05/07/2013 83357 ROUTINE VENIPUNCTURE 06/24/2013 18635 CBC 06/24/2013 [id number] GFR CALC (RESULT ONLY) 06/24/2013 67436 CMP 06/24/2013 01937 DILANTIN 2012 09404 HEPATITIS PROFILE 06/25/2013 28440 LIPASE 2012 12341 A1C (IN-HOUSE) Results Test Result Range D-DIMER QUANT - 11/30/15 16:40 D-DIMER QUANT 227 ng/mL 0-229 HEPATIC FUNCTION PANEL - 11/30/15 16:40 BILI UNCONJUGATED 0.1 mg/dL 0.0-0.7 AST/SGOT 13 Units/L 10-37 ALT/SGPT 24 Units/L < 66 TOTAL PROTEIN 7.5 gm/dL 6.4-8.2 ALBUMIN 3.2 gm/dL 3.4-5.0 BILI TOTAL 0.2 mg/dL 0.0-1.0 ALKALINE PHOSPHATASE TOTAL 72 IU/L 45- 117 BILI CONJUGATED < 0.1 mg/dL 0.0-0.3 LIPASE - 11/30/15 16:40 LIPASE 125 Units/L 73-393 CBC W/DIFF - 11/30/15 16:40 EOSINOPHIL # 0.1 k/cumm 0.1-0.5 EOSINOPHIL % 1 % 2-4 GRANULOCYTE # 6.3 k/cumm 2.0-9.0 GRANULOCYTE % 65 % 50-75 LYMPHOCYTE # 2.6 k/cumm 1.0-4.0 LYMPHOCYTE % 26 % 20-30 MEAN CELL HGB 24.8 pg 27.0-33.0 MEAN CELL HGB CONCENTRATION 32.6 g/dL 32.0-37.0 MEAN CELL VOLUME 76.3 fl 80.0-100.0 MONOCYTE # 0.7 k/cumm 0.1-1.0 MONOCYTE % 8 % 4-6 RED BLOOD CELL 4.59 m/cumm 4.00-6.00 RED CELL DISTRIBUTION WIDTH 14.1 % 11.0- 15.6 WHITE BLOOD CELL 9.7 k/cumm 5.0-10.0 HEMOGLOBIN 11.4 gm/dL 12.0-16.0 HEMATOCRIT 35.0 % 37.0-47.0 PLATELET COUNT 366 k/cumm 150-450 CHEM/HEM PROFILE-BEDSIDE - 11/30/15 16:43 POTASSIUM 3.6 mmol/L 3.5-5.3 METHOD Bedside ANION GAP 18 mmol/L 10-20 METHOD Bedside GLUCOSE 135 mg/dL 70-99 BLOOD UREA NITROGEN 12 mg/dL 7-20 CREATININE 0.7 mg/dL 0.6-1.0 HEMOGLOBIN 12.6 gm/dL 12.0-16.0 HEMATOCRIT 37.0 % 37.0-47.0 SODIUM 138 mmol/L 135-148 CHLORIDE 106 mmol/L 98-110 CARBON DIOXIDE 19 mmol/L 21-32 CALCIUM IONIZED 4.2 mg/dL 4.5-5.3 URINALYSIS, ROUTINE - 11/30/15 16:45 UA LEUKOCYTE ESTERASE DIPSTICK NEGATIVE NEGATIVE UA NITRITE DIPSTICK NEGATIVE NEGATIVE UA PROTEIN DIPSTICK NEGATIVE NEGATIVE UA GLUCOSE DIPSTICK NEGATIVE NEGATIVE UA KETONE DIPSTICK NEGATIVE NEGATIVE UA UROBILINOGEN DIPSTICK NORMAL NORMAL UA BILIRUBIN DIPSTICK NEGATIVE NEGATIVE UA BLOOD DIPSTICK NEGATIVE NEGATIVE UA SPECIFIC GRAVITY 1.020 1.015-1.025 UR PH 6.0 5.0-7.0 UR TEST - 11/30/15 16:45 UR TEST NEGATIVE NEGATIVE TROPONIN I BEDSIDE - 11/30/15 16:46 METHOD Bedside TROPONIN I < 0.04 ng/mL < 0.11 Complete urinalysis with reflex to culture - 03/09/16 02:14 Urine color determination YELLOW NRG Urine clarity determination SLIGHTLY CLOUDY NRG Urine pH measurement by test strip 6 5- 9 Specific gravity of urine by test strip 1.030 1.016-1.022 Urine protein assay by test strip, semi-quantitative 2+ NEGATIVE Urine glucose detection by automated test strip NEGATIVE NEGATIVE Erythrocytes detection in urine sediment by light microscopy 1+ NEGATIVE Urine ketones detection by automated test strip 1+ NEGATIVE Urine nitrite detection by test strip NEGATIVE NEGATIVE Urine total bilirubin detection by test strip NEGATIVE NEGATIVE Urine urobilinogen measurement by automated test strip (mass/volume) NORMAL NORMAL Urine leukocyte esterase detection by dipstick 2+ NEGATIVE Automated urine sediment erythrocyte count by microscopy (number/high power field) [HPF] NRG Automated urine sediment leukocyte count by microscopy (number/high power field ) [HPF] NRG Bacteria detection in urine sediment by light microscopy MODERATE NRG Squamous epithelial cells detection in urine sediment by light microscopy TNTC NRG Crystals detection in urine sediment by light microscopy NONE NRG Casts detection in urine sediment by light microscopy NONE NRG Mucus detection in urine sediment by light microscopy MODERATE NRG Complete urinalysis with reflex to culture YES NRG Bacterial urine culture - 03/09/16 02:14 URINE CULTURE RESULTS <10,000/ML NRG Complete blood count (CBC) with automated white blood cell (WBC) differential - 03/09/16 02:25 Blood leukocytes automated count (number/volume) 10.3 10*3/ uL 4.3-11.0 Blood erythrocytes automated count (number/volume) 5.20 10*6 /uL 4.35-5.85 Venous blood hemoglobin measurement (mass/volume) 11.9 g/dL 11.5-16.0 Blood hematocrit (volume fraction) 37 % 35-52 Automated erythrocyte mean corpuscular volume 71 [foz_us] 80-99 Automated erythrocyte mean corpuscular hemoglobin (mass per erythrocyte) 23 pg 25-34 Automated erythrocyte mean corpuscular hemoglobin concentration measurement ( mass/volume) 32 g/dL 32-36 Automated erythrocyte distribution width ratio 17.0 % 10.0-14.5 Automated blood platelet count (count/volume) 383 10*3/uL 130-400 Automated blood platelet mean volume measurement 9.8 [foz_us ] 7.4-10.4 Automated blood neutrophils/100 leukocytes 62 % 42-75 Automated blood lymphocytes/100 leukocytes 28 % 12-44 Blood monocytes/100 leukocytes 9 % 0-12 Automated blood eosinophils/100 leukocytes 2 % 0-10 Automated blood basophils/100 leukocytes 1 % 0-10 Blood neutrophils automated count (number/volume) 6.4 10*3 1.8-7.8 Blood lymphocytes automated count (number/volume) 2.9 10*3 1.0-4.0 Blood monocytes automated count (number/volume) 0.9 10*3 0.0-1.0 Automated eosinophil count 0.2 10*3/uL 0.0-0.3 Automated blood basophil count (count/volume) 0.1 10*3/uL 0.0-0.1 Comprehensive metabolic panel - 03/09/16 02:25 Serum or plasma sodium measurement (moles/volume) 138 mmol/ L 135-145 Serum or plasma potassium measurement (moles/volume) 3.6 mmol/L 3.6-5.0 Serum or plasma chloride measurement (moles/volume) 102 mmol /L 98-107 Carbon dioxide 19 mmol/L 21-32 Serum or plasma anion gap determination (moles/volume) 17 mmol/L 5-14 Serum or plasma urea nitrogen measurement (mass/volume) 10 mg/dL 7-18 Serum or plasma creatinine measurement (mass/volume) 0.85 mg /dL 0.60-1.30 Serum or plasma urea nitrogen/creatinine mass ratio 12 NRG Serum or plasma creatinine measurement with calculation of estimated glomerular filtration rate > NRG Serum or plasma glucose measurement (mass/volume) 135 mg/dL 70-105 Serum or plasma calcium measurement (mass/volume) 9.5 mg/dL 8.5-10.1 Serum or plasma total bilirubin measurement (mass/volume) 0.3 mg/dL 0.1-1.0 Serum or plasma alkaline phosphatase measurement (enzymatic activity/volume) 70 U/L 40-136 Serum or plasma aspartate aminotransferase measurement (enzymatic activity/ volume) 22 U/L 5-34 Serum or plasma alanine aminotransferase measurement (enzymatic activity/volume ) 29 U/L 0-55 Serum or plasma protein measurement (mass/volume) 7.7 g/dL 6.4-8.2 Serum or plasma albumin measurement (mass/volume) 4.3 g/dL 3.2-4.5 Lipase - 03/09/16 02:25 Lipase 25 U/L 8-78 Complete blood count (CBC) with automated white blood cell (WBC) differential - 09/26/16 15:54 Blood leukocytes automated count (number/volume) 9.6 10*3/ uL 4.3-11.0 Blood erythrocytes automated count (number/volume) 5.32 10*6 /uL 4.35-5.85 Venous blood hemoglobin measurement (mass/volume) 12.7 g/dL 11.5-16.0 Blood hematocrit (volume fraction) 40 % 35-52 Automated erythrocyte mean corpuscular volume 74 [foz_us] 80-99 Automated erythrocyte mean corpuscular hemoglobin (mass per erythrocyte) 24 pg 25-34 Automated erythrocyte mean corpuscular hemoglobin concentration measurement ( mass/volume) 32 g/dL 32-36 Automated erythrocyte distribution width ratio 15.3 % 10.0-14.5 Automated blood platelet count (count/volume) 376 10*3/uL 130-400 Automated blood platelet mean volume measurement 9.5 [foz_us ] 7.4-10.4 Automated blood neutrophils/100 leukocytes 64 % 42-75 Automated blood lymphocytes/100 leukocytes 27 % 12-44 Blood monocytes/100 leukocytes 6 % 0-12 Automated blood eosinophils/100 leukocytes 2 % 0-10 Automated blood basophils/100 leukocytes 0 % 0-10 Blood neutrophils automated count (number/volume) 6.2 10*3 1.8-7.8 Blood lymphocytes automated count (number/volume) 2.6 10*3 1.0-4.0 Blood monocytes automated count (number/volume) 0.6 10*3 0.0-1.0 Automated eosinophil count 0.2 10*3/uL 0.0-0.3 Automated blood basophil count (count/volume) 0.0 10*3/uL 0.0-0.1 Comprehensive metabolic panel - 09/26/16 15:54 Serum or plasma sodium measurement (moles/volume) 139 mmol/ L 135-145 Serum or plasma potassium measurement (moles/volume) 3.7 mmol/L 3.6-5.0 Serum or plasma chloride measurement (moles/volume) 100 mmol /L 98-107 Carbon dioxide 26 mmol/L 21-32 Serum or plasma anion gap determination (moles/volume) 13 mmol/L 5-14 Serum or plasma urea nitrogen measurement (mass/volume) 10 mg/dL 7-18 Serum or plasma creatinine measurement (mass/volume) 0.79 mg /dL 0.60-1.30 Serum or plasma urea nitrogen/creatinine mass ratio 13 NRG Serum or plasma creatinine measurement with calculation of estimated glomerular filtration rate > NRG Serum or plasma glucose measurement (mass/volume) 128 mg/dL 70-105 Serum or plasma calcium measurement (mass/volume) 9.5 mg/dL 8.5-10.1 Serum or plasma total bilirubin measurement (mass/volume) 0.2 mg/dL 0.1-1.0 Serum or plasma alkaline phosphatase measurement (enzymatic activity/volume) 68 U/L 40-136 Serum or plasma aspartate aminotransferase measurement (enzymatic activity/ volume) 19 U/L 5-34 Serum or plasma alanine aminotransferase measurement (enzymatic activity/volume ) 28 U/L 0-55 Serum or plasma protein measurement (mass/volume) 7.6 g/dL 6.4-8.2 Serum or plasma albumin measurement (mass/volume) 4.0 g/dL 3.2-4.5 Serum or plasma troponin i.cardiac measurement (mass/volume) - 09/26/16 15:54 Serum or plasma troponin i.cardiac measurement (mass/volume) < ng/mL <0.30 Encounters ACCT No. Visit Date/Time Discharge Status Pt. Type Provider Facility Loc./Unit Complaint [id number] 08/11/2013 08:22:00 08/11/2013 23: 59:59 CLS Outpatient MICHELLE GALEAS MD [id number] 06/25/2013 09:18:00 06/25/2013 23: 59:59 CLS Outpatient MICHELLE GALEAS MD [id number] 06/24/2013 10:33:00 06/24/2013 23: 59:59 CLS Outpatient TANVIR BENSON DO [id number] 05/07/2013 11:13:00 05/07/2013 23: 59:59 CLS Outpatient TANVIR BENSON DO [id number] 04/14/2013 10:38:00 04/14/2013 23: 59:59 CLS Outpatient TANVIR BENSON DO [id number] 03/17/2013 11:47:00 03/17/2013 23: 59:59 CLS Outpatient TANVIR BENSON DO [id number] 03/01/2013 17:35:00 Document Registration [id number] 01/25/2013 14:59:00 Document Registration [id number] 12/24/2012 15:16:00 Document Registration [id number] 12/21/2012 16:02:00 Document Registration [id number] 12/15/2012 09:36:00 Document Registration [id number] 11/26/2012 14:40:00 Document Registration [id number] 11/17/2012 10:39:00 Document Registration [id number] 11/12/2012 11:42:00 Document Registration [id number] 11/03/2012 15:16:00 Document Registration [id number] 10/27/2012 10:39:00 Document Registration [id number] 10/26/2012 15:16:00 Document Registration
== END 2016-09-26 16:12 | disposition left against medical advice (07) ==
LOC: EDUNIT# 15:39 → ER 15:40
DX: R00.0 Tachycardia, unspecified (principal); Z53.29 Procedure and treatment not carried out because of patient's decision for other reasons; Z79.899 Other long term (current) drug therapy
CPT/HCPCS: 36415; 80053; 84484; 85025; 93005

== ENCOUNTER 2016-12-31 03:11 | Emergency (ER) | payer BC ==
[~2016-12-31] VITALS: Ht 172.7 cm; Wt 99.8 kg
[~2016-12-31 03:11] MED LIST changes: +DILT120C10 PO; +DILT180C82 PO
[2016-12-31] MEDS ORDERED: diphenhydrAMINE 50 MG/ML INJ (BENADRYL) IVP ONE (03:30)
[2016-12-31] MEDS ORDERED: ASPIRIN 81 MG CHEW (CHILDREN'S ASA) PO ONE (03:30)
[2016-12-31] MEDS ORDERED: FAMOTIDINE 20MG/2ML IV (PEPCID) IVP ONE (03:30)
[2016-12-31] MEDS ORDERED: RX-NITROGLYCERIN 0.4 MG TAB BTL 25'S SL PRN (03:30)
[2016-12-31 03:42] LABS: BASOPHILS # (AUTO) 0.1 10^3/uL (0.0-0.1); BASOPHILS % (AUTO) 1 % (0-10); EOSINOPHILS # (AUTO) 0.6 10^3/uL (0.0-0.3); EOSINOPHILS % (AUTO) 5 % (0-10); LYMPHOCYTES # (AUTO) 2.9 X 10^3 (1.0-4.0); LYMPHOCYTES % (AUTO) 28 % (12-44); MEAN CORPUSCULAR HEMOGLOBIN 23 PG (25-34); MEAN CORPUSCULAR HGB CONC 32 G/DL (32-36); MEAN CORPUSCULAR VOLUME 73 FL (80-99); MEAN PLATELET VOLUME 9.4 FL (7.4-10.4); MONOCYTES # (AUTO) 0.8 X 10^3 (0.0-1.0); MONOCYTES % (AUTO) 8 % (0-12); NEUTROPHILS # (AUTO) 6.2 X 10^3 (1.8-7.8); NEUTROPHILS % (AUTO) 59 % (42-75); PLATELET COUNT 402 10^3/uL (130-400); RED BLOOD COUNT 4.84 10^6/uL (4.35-5.85); RED CELL DISTRIBUTION WIDTH 14.9 % (10.0-14.5); WHITE BLOOD COUNT 10.4 10^3/uL (4.3-11.0)
[2016-12-31] MEDS ORDERED: IOHEXOL 350 MG/ML 150 ML (OMNIPAQUE 350) VIAL IV ONE (03:45)
[2016-12-31] MEDS ORDERED: NS 100 ML (IVPB) BAG IV ONE (03:45)
[2016-12-31 04:10] LABS: ALANINE AMINOTRANSFERASE 23 U/L (0-55); AMYLASE 62 U/L (25-125); ANION GAP 16 MMOL/L (5-14); ASPARTATE AMINO TRANSFERASE 16 U/L (5-34); BILIRUBIN,TOTAL 0.3 MG/DL (0.1-1.0); BLOOD UREA NITROGEN 17 MG/DL (7-18); BUN/CREATININE RATIO 18 (0-20); CALCIUM 9.3 MG/DL (8.5-10.1); CARBON DIOXIDE 22 MMOL/L (21-32); CHLORIDE 102 MMOL/L (98-107); CREATINE KINASE 28 U/L (29-168); CREATININE SERUM 0.95 MG/DL (0.60-1.30); GFR ESTIMATED > 60; GLUCOSE 148 MG/DL (70-105); HEMOLYSIS 3 (-100-29); ICTERUS 0.2 (-100-1.9); LIPASE 26 U/L (8-78); LIPEMIA 16 (-100-49); MAGNESIUM 1.8 MG/DL (1.8-2.4); POTASSIUM 3.5 MMOL/L (3.6-5.0); SODIUM 140 MMOL/L (135-145); TOTAL PROTEIN 7.6 GM/DL (6.4-8.2)
[2016-12-31 04:17] LABS: TROPONIN I < 0.30 NG/ML (<0.30)
[2016-12-31] MEDS ORDERED: morphine INJ 10 MG/ML 1ML (SYR OR VIAL) IVP STA (04:19)
[2016-12-31] MEDS ORDERED: PANTOPRAZOLE 40 MG/10 ML (PROTONIX) VIAL IV ONE (04:30)
[2016-12-31] MEDS ORDERED: ONDANSETRON 4 MG/2 ML (SDV) Z0FRAN IVP ONE (04:30)
--- NOTE | 2016-12-31 05:02 | ED Chest Pain ---
General Chief Complaint: Chest Pain Stated Complaint: CP Nursing Triage Note: chest pain radiating to left arm since 232912/30/16 Nursing Sepsis Screen: No Definite Risk Source: patient History of Present Illness Time seen by provider: 03:13 Initial Comments PT ARRIVES VIA POV C/O LEFT LOWER STERNAL/MEDIAL BREAST PAIN SINCE 2329 TONIGHT--PAIN BEGAN WHILE LAYING DOWN TONIGHT NO SHORTNESS OF BREATH NO SWEATS NO SWELLING IN LEGS/ FEET NO PALPITATIONS NO COUGH, FEVER OR RECENT ILLNESS + NAUSEA, NO VOMITING NOTHING WORSENS OR IMPROVES PAIN--TOOK A TYLENOL AND NEURONTIN TONIGHT, WITH OUT SIGNIFICANT IMPROVEMENT. PT STATES NEURONTIN WAS PRESCRIBED FOR POST OP PAIN , DOES NOT TAKE ANY OTHER PAIN MEDICATIONS ( SEE EXTENSIVE ALLERGY LIST ) PT HAS HISTORY OF SVT /"INAPPROPRIATE SINUS TACHYCARDIA" PT HAS HAD FAILED CARDIAC ABLATIONS IN THE PAST 4 WEEKS AGO, PT HAD SURGERY AT [facility] AND HAD A SYMPATHECTOMY TO CORRECT THIS PROBLEM. PT IS CURRENTLY SEEING WOUND CARE CLINIC FOR WOUND DEHISCENCE TO LEFT LATERAL BREAST WOUND. NO INFECTION AT THIS TIME, AND IS STARTING TO HEAL. OTHER WOUND IN LEFT AXILLA IS HEALING WELL WITHOUT PROBLEMS. PT HAS AN APPOINTMENT WITH WOUND CARE CLINIC AND HER PCP THIS WEEK PCP: DR. BERUMEN AT [facility] IN [place], [place] LEAD COOK: DR. SR AT Allergies and Home Medications Allergies Coded Allergies: fludrocortisone (Unverified Allergy, Severe, CHF, 03/05/10) codeine (Unverified Allergy, Mild, 01/03/09) dicyclomine (Unverified Allergy, Mild, RASH, 03/05/10) erythromycin base (Unverified Allergy, Mild, 01/03/09) iodine (Unverified Allergy, Mild, 01/03/09) ketorolac (Unverified Allergy, Mild, RASH, 03/05/10) metoclopramide (Unverified Allergy, Mild, 01/03/09) pneumococcal vaccine (Unverified Allergy, Mild, 01/15/09) prochlorperazine (Unverified Allergy, Mild, 01/03/09) pseudoephedrine (Unverified Allergy, Mild, 01/15/09) dicyclomine HCl (Unverified Allergy, Unknown, 01/13/15) ibuprofen (Unverified Allergy, Unknown, 01/13/15) ketorolac tromethamine (Unverified Allergy, Unknown, 01/13/15) metoclopramide HCl (Unverified Allergy, Unknown, 01/13/15) prochlorperazine edisylate (Unverified Allergy, Unknown, 01/13/15) prochlorperazine maleate (Unverified Allergy, Unknown, 01/13/15) tramadol (Unverified Allergy, Unknown, 01/13/15) Home Medications Clonazepam 0.5 Mg Tablet, 0.5 MG PO BID PRN for ANXIETY, (Reported) Cyclobenzaprine HCl 10 Mg Tablet, 10 MG PO BID PRN for MUSCLE SPASMS, (Reported) Diltiazem HCl 180 Mg Capsule.er, 180 MG PO BID, (Reported) Diltiazem HCl 120 Mg Cap.er.12h, 120 MG PO DAILY, (Reported) Estradiol 0.5 Mg Tablet, 0.5 MG PO HS, (Reported) Hydrocodone/Acetaminophen 1 Each Tablet, 1 EACH PO Q6H PRN for ABDOMINAL PAIN, # 12 Ref 0 Prescribed by: MARIO ALBERTO RICHMOND on 03/09/16 0438 Metoprolol Succinate 100 Mg Tab.er.24h, 100 MG PO HS, (Reported) Montelukast Sodium 10 Mg Tablet, 10 MG PO HS, (Reported) Multivitamin 1 Each Tablet, 1 TAB PO DAILY, (Reported) Omeprazole 20 Mg Capsule.dr, 20 MG PO HS, (Reported) Paroxetine HCl 25 Mg Tab.er.24h, 25 MG PO HS, (Reported) Prednisone 10 Mg Tab, 40 MG PO DAILY, #12 Prescribed by: POLLO FORD on 01/26/16 1339 Promethazine HCl 25 Mg Tablet, 25 MG PO Q6H PRN for NAUSEA/VOMITING, #10 Ref 0 Prescribed by: MARIO ALBERTO RICHMOND on 03/09/16 0438 Ropinirole HCl 0.25 Mg Tablet, 0.25 MG PO HS, (Reported) Zolpidem Tartrate 10 Mg Tablet, 10 MG PO HS PRN for SLEEP, (Reported) Review of Systems Constitutional: no symptoms reported, No chills, No diaphoresis, No dizziness, No fever EENTM: No Symptoms Reported Respiratory: No Symptoms Reported, Denies Cough, Denies Orthopnea, Denies Shortness of Air, Denies SOA With Exertion Cardiovascular: See HPI, Chest Pain, Denies Edema, Denies Irregular Heart Rate , Denies Lightheadedness, Denies Palpitations, Denies Syncope Gastrointestinal: See HPI, Denies Abdominal Pain, Denies Constipated, Denies Diarrhea, Nausea, Denies Vomiting Genitourinary: No Symptoms Reported Musculoskeletal: no symptoms reported Skin: see HPI Psychiatric/Neurological: No Symptoms Reported Endocrine: No Symptoms Reported Hematologic/Lymphatic: No Symptoms Reported Past Bribdqu-Tkkqoe-Tlrxws Hx Patient Social History Alcohol Use: Denies Use Recreational Drug Use: No Smoking Status: Never a Smoker 2nd Hand Smoke Exposure: No Recent Foreign Travel: No Contact w/Someone Who Travel: No Recent Infectious Disease Expo: No Recent Hopitalizations: No Immunizations Up To Date Tetanus Booster (TDap): Less than 5yrs Date of Pneumonia Vaccine: Jul 07, 2006 Date of Influenza Vaccine: Apr 06, 2013 Seasonal Allergies Seasonal Allergies: No Surgeries HX Surgeries: Yes (LEFT SHOULDER, FAILED CARDIAC ABLATIONS; SYMPATHECTOMY FOR SVT AT [facility] 11/2016) Surgeries: Adenoidectomy, Appendectomy, Cardiac, Gallbladder, Hysterectomy, Oophorectomy, Orthopedic, Tonsillectomy Respiratory Hx Respiratory Disorders: Yes Respiratory Disorders: Asthma Cardiovascular Hx Cardiac Disorders: Yes (SVT-S/P FAILED ABLATIONS AND HAD SYMPATHECTOMY AT [facility] 11/2016; "ENLARGED RIGHT HEART" ) Cardiac Disorders: Hypertension, Irregular Heartbeat, Syncope Neurological Hx Neurological Disorders: No Reproductive System : No Hx Reproductive Disorders: Yes Sexually Transmitted Disease: No HIV/AIDS: No Female Reproductive Disorders: Endometriosis DAYCARE WORKER History: Hysterectomy Genitourinary Hx Genitourinary Disorders: No Genitourinary Disorders: Kidney Infection, Bladder Infection, Kidney Stones, UTI-Chronic Gastrointestinal Hx Gastrointestinal Disorders: Yes (ULCERATIVE COLITIS) Gastrointestinal Disorders: Colitis, Chronic Diarrhea Musculoskeletal Hx Musculoskeletal Disorders: Yes (SRAVANTHI-DANLOS, DYSAUTONOMIA, RESTLESS LEG SYNDROME) Musculoskeletal Disorders: Arthritis Endocrine Hx Endocrine Disorders: Yes Endocrine Disorders: Diabetes, Non-Insulin dep HEENT HX ENT Disorders: Yes (DENTAL PROBLEMS) Cancer Hx Cancer: No Psychosocial Hx Psychiatric Problems: Yes (EXTENSIVE PSYCH ISSUES) Behavioral Health Disorders: Anxiety, PTSD, Depression Integumentary HX Skin/Integumentary Disorder: No Blood Transfusions Hx Blood Disorders: No Adverse Reaction to a Blood Tr: No Family Medical History Significant Family History: No Pertinent Family Hx, Diabetes, Hypertension Family Medial History: Family history: Arthritis 03 FATHER Family history: Diabetes mellitus 09 SISTER Family history: Osteoporosis 03 FATHER (GOUT) Headache 03 FATHER Infertile 03 MOTHER (FIRST CHILD WAS A STILL ) Kidney disease 03 FATHER (CHRONIC KIDNEY STONES) Psychotic disorder 09 SISTER No Family History of: Abdominal aortic aneurysm Stoddard's disease Alcoholism Aphasia Cancer Cancer of colon Cataract Chest pain Congenital heart disease Congestive heart failure Cystic fibrosis Dementia Dysphagia Family history: Allergy Family history: Alzheimer's disease Family history: Asthma Family history: Breast disease Family history: Cardiovascular disease Family history: Coronary thrombosis Family history: Gastrointestinal disease Family history: Glaucoma Family history: Hypertension Family history: Thyroid disorder Hearing loss Heart disease Hereditary disease History of - anemia History of - disorder History of - respiratory disease History of drug abuse Human immunodeficiency virus (HIV) seropositivity Hypercholesterolemia Myocardial infarction Parkinson's disease Prostate cancer Stroke Tuberculosis Visual impairment Physical Exam Vital Signs Vital Sign - Last 12Hours 12/31/16 12/31/16 03:20 03:21 Temp 97.7 Pulse 85 Resp 19 B/P (MAP) 106/74 Pulse Ox 97 O2 Delivery Nasal Cannula O2 Flow Rate 2.00 Capillary Refill : Less Than 3 Seconds General Appearance: No Apparent Distress, WD/WN, Obese HEENT: PERRL/EOMI Neck: Full Range of Motion, Normal Inspection, Non Tender, Supple Respiratory: Normal Breath Sounds, No Accessory Muscle Use, No Respiratory Distress, Other (TENDERNESS TO LEFT LOWER/LATERAL STERNAL AREA. WOUND TO LEFT AXILLA IS HEALING WELL WITH NO SIGNS OF INFECTION; WOUND TO LEFT LATERAL BREAST/ CHEST WITH DRESSING IN PLACE WITH SMALL AMOUNT OF SEROUS DRAINGE. NO SIGNS OF INFECTION AT THIS TIME. ) Cardiovascular: Regular Rate, Rhythm, No Edema, No JVD, No Murmur, Normal Peripheral Pulses Gastrointestinal: Normal Bowel Sounds, No Organomegaly, No Pulsatile Mass, Non Tender, Soft Extremity: Normal Capillary Refill, Normal Inspection, Normal Range of Motion, Non Tender, No Calf Tenderness, No Pedal Edema Neurologic/Psychiatric: Alert, Oriented x3, No Motor/Sensory Deficits, Normal Mood/Affect, external grinder tender II-XII Norm as Tested Skin: Normal Color, Warm/Dry Progress/Results/Core Measures Results/Orders Lab Results Laboratory Tests Test 12/31/16 03:25 Range/Units White Blood Count 10.4 4.3-11.0 10^3/uL Red Blood Count 4.84 4.35-5.85 10^6/uL Hemoglobin 11.2 L 11.5-16.0 G/DL Hematocrit 35 35-52 % Mean Corpuscular Volume 73 L 80-99 FL Mean Corpuscular Hemoglobin 23 L 25-34 PG Mean Corpuscular Hemoglobin Concent 32 32-36 G/DL Red Cell Distribution Width 14.9 H 10.0-14.5 % Platelet Count 402 H 130-400 10^3/uL Mean Platelet Volume 9.4 7.4-10.4 FL Neutrophils (%) (Auto) 59 42-75 % Lymphocytes (%) (Auto) 28 12-44 % Monocytes (%) (Auto) 8 0-12 % Eosinophils (%) (Auto) 5 0-10 % Basophils (%) (Auto) 1 0-10 % Neutrophils # (Auto) 6.2 1.8-7.8 X 10^3 Lymphocytes # (Auto) 2.9 1.0-4.0 X 10^3 Monocytes # (Auto) 0.8 0.0-1.0 X 10^3 Eosinophils # (Auto) 0.6 H 0.0-0.3 10^3/uL Basophils # (Auto) 0.1 0.0-0.1 10^3/uL Prothrombin Time 13.0 12.2-14.7 SEC INR Comment 1.0 0.8-1.4 Activated Partial Thromboplast Time 26 24-35 SEC D-Dimer 1.95 H 0.00-0.49 UG/ML Sodium Level 140 135-145 MMOL/L Potassium Level 3.5 L 3.6-5.0 MMOL/L Chloride Level 102 98-107 MMOL/L Carbon Dioxide Level 22 21-32 MMOL/L Anion Gap 16 H 5-14 MMOL/L Blood Urea Nitrogen 17 7-18 MG/DL Creatinine 0.95 0.60-1.30 MG/DL Estimat Glomerular Filtration Rate > 60 BUN/Creatinine Ratio 18 0-20 Glucose Level 148 H 70-105 MG/DL Calcium Level 9.3 8.5-10.1 MG/DL Magnesium Level 1.8 1.8-2.4 MG/DL Total Bilirubin 0.3 0.1-1.0 MG/DL Aspartate Amino Transf (AST/SGOT) 16 5-34 U/L Alanine Aminotransferase (ALT/SGPT) 23 0-55 U/L Alkaline Phosphatase 70 40-136 U/L Total Creatine Kinase 28 L 29-168 U/L Creatine Kinase MB 0.4 <6.6 NG/ML Troponin I < 0.30 <0.30 NG/ML B-Type Natriuretic Peptide < 10.0 <100.0 PG/ML Total Protein 7.6 6.4-8.2 GM/DL Albumin 4.0 3.2-4.5 GM/DL Amylase Level 62 25-125 U/L Lipase 26 8-78 U/L My Orders Orders - POLLO FORD DO Amylase (12/31/16 03:25) Cbc With Automated Diff (12/31/16 03:25) Comprehensive Metabolic Panel (12/31/16 03:25) Creatine Kinase (12/31/16 03:25) Creatine Kinase Mb (12/31/16 03:25) Lipase (12/31/16 03:25) Partial Thromboplastin Time (12/31/16 03:25) Protime With Inr (12/31/16 03:25) Troponin I (12/31/16 03:25) Chest 1 View, Ap/Pa Only (12/31/16 03:25) O2 (12/31/16 03:25) Ekg Tracing (12/31/16 03:25) Aspirin Chewable Tablet (Baby Aspirin Ch (12/31/16 03:30) Rx-Nitroglycerin Sl Tabs (Rx-Nitrostat S (12/31/16 03:30) BNP (12/31/16 03:25) Monitor-Rhythm Ecg Trace Only (12/31/16 03:25) Saline Lock/Iv-Start (12/31/16 03:25) Fibrin Degradation Products (12/31/16 03:25) Magnesium (12/31/16 03:25) Ct Maddy Chest/Noang Abd-Pelv W (12/31/16 03:25) Diphenhydramine Injection (Benadryl Inje (12/31/16 03:30) Famotidine Injection (Pepcid Injection) (12/31/16 03:30) Iohexol Injection (Omnipaque 350 Mg/Ml 1 (12/31/16 03:45) Ns (Ivpb) (Sodium Chloride 0.9% Ivpb Bag (12/31/16 03:45) Morphine Injection (Morphine Injection (12/31/16 04:19) Pantoprazole Injection (Protonix Injecti (12/31/16 04:30) Ondansetron Injection (Zofran Injectio (12/31/16 04:30) Medications Given in ED Current Medications Medications Dose Ordered Sig/Brisa Route Start Time Stop Time Status Last Admin Dose Admin Aspirin 324 mg ONCE ONCE PO 12/31/16 03:30 12/31/16 03:31 DC 12/31/16 03:32 324 MG Diphenhydramine HCl 50 mg ONCE ONCE IVP 12/31/16 03:30 12/31/16 03:31 DC 12/31/16 03:35 50 MG Famotidine 40 mg ONCE ONCE IVP 12/31/16 03:30 12/31/16 03:31 DC 12/31/16 03:35 40 MG Iohexol 150 ml ONCE ONCE IV 12/31/16 03:45 12/31/16 03:46 DC 12/31/16 03:48 125 ML Nitroglycerin 0.4 mg UD PRN SL 12/31/16 03:30 12/31/16 03:33 0.4 MG Ondansetron HCl 4 mg ONCE ONCE IVP 12/31/16 04:30 12/31/16 04:31 DC 12/31/16 04:27 4 MG Pantoprazole 40 mg ONCE ONCE IV 12/31/16 04:30 12/31/16 04:31 DC 12/31/16 04:27 40 MG Sodium Chloride 100 ml ONCE ONCE IV 12/31/16 03:45 12/31/16 03:46 DC 12/31/16 03:48 80 ML Vital Signs/I&O Vital Sign - Last 12Hours 12/31/16 12/31/16 12/31/16 12/31/16 03:20 03:21 03:21 04:08 Temp 97.7 Pulse 85 78 Resp 19 15 B/P (MAP) 106/74 104/71 Pulse Ox 97 97 99 O2 Delivery Nasal Cannula Nasal Cannula Nasal Cannula Nasal Cannula O2 Flow Rate 2.00 2.0 2.00 2.00 Blood Pressure Mean: 85 Progress Note : Progress Note NO RELIEF WITH NTG, AND BP DROPPED PAIN EASED WITH MORPHINE OFFERED ADMIT, AND PT STATES SHE FEELS COMFORTABLE GOING HOME. ECG Initial ECG Impression Time: 03:21 Initial ECG Rate: 87 Initial ECG Rhythm: Normal Sinus Initial ECG Comparisson: Unchanged (EXCEPT FOR RATE) Diagnostic Imaging Comments CXR--NO ACUTE PROCESS, PENDING RADIOLOGIST REVIEW CT CHEST ANGIO/ABD-PELVIS--NO P.E. OR OTHER ACUTE PROCESS--PER [facility] VIA FAX @ [phone] Reviewed: Reviewed by Me Departure Impression Impression: Primary Impression: Left-sided chest wall pain Additional Impressions: S/P thoracic surgical sympathectomy Hx of supraventricular tachycardia WOUND DEHISCENCE LEFT CHEST WALL Disposition: 01 HOME, SELF-CARE Condition: Improved Departure-Patient Inst. Referrals: NO,LOCAL PHYSICIAN (PCP/Family) Primary Care Physician Patient Instructions: Chest Pain That Is Not Caused by the Heart (DC) Add. Discharge Instructions: HOME, REST TAKE YOUR MEDICATIONS PRESCRIBED KEEP YOUR APPOINTMENTS THIS WEEK WITH YOUR FAMILY AND WITH WOUND CARE RETURN TO ER IF SYMPTOMS WORSEN All discharge instructions reviewed with patient and/or family. Voiced understanding. Images Torso/Trunk 1 - Mild, Tenderness POLLO FORD DO Dec 31, 2016 05:02
[2016-12-31 05:07] VITALS: BP 102/76
--- NOTE | 2016-12-31 08:18 | Diagnostic Imaging Report ---
Portable upright radiograph of the chest. INDICATION: Chest pain. FINDINGS: The lungs are clear. The heart size is normal. No effusion or pneumothorax. The mediastinum and sumi appear unremarkable. IMPRESSION: Unremarkable exam. Dictated by: Dictated on workstation # [id number]
--- NOTE | 2016-12-31 08:49 | Diagnostic Imaging Report ---
EXAMINATION: CT angiogram of the chest and CT scan of the abdomen and pelvis performed with intravenous contrast. MIP coronal and oblique plane reconstructions were performed for the CT chest angiogram protocol. CONTRAST: 125 mL of Omnipaque 350 was administered intravenously. INDICATION: Chest pain, nausea, and diarrhea. FINDINGS: CTA CHEST: There is moderate opacification of the pulmonary arteries with no filling defects evident to suggest pulmonary embolism. The thoracic aorta is normal in caliber. No dissection. No mediastinal mass. No lymphadenopathy in the sumi, mediastinum, or axilla. The lungs demonstrate no significant consolidation, mass, or suspicious nodule. No pleural or pericardial effusion. CT ABDOMEN AND PELVIS: The liver demonstrates diffuse fatty infiltration. Cholecystectomy clips are seen. The spleen is borderline enlarged measuring 13.7 cm in length compared to 12.1 cm in length on the 03/09/2016 exam. No suspicious focal lesion is seen in the pancreas. No adrenal nodule. The kidneys have symmetric contrast enhancement and excretion. No hydronephrosis. The urinary bladder appears unremarkable. The abdominal aorta is normal in caliber. No periaortic significantly enlarged lymph nodes are seen. There is a small fat-containing umbilical hernia. There is a supraumbilical fat-containing ventral hernia seen as well. There is no bowel obstruction. No free fluid or fluid collection in the abdomen or pelvis is seen. There is evidence of prior hysterectomy. The osseous structures appear grossly unremarkable. IMPRESSION: CTA CHEST: No PE or aortic dissection. Unremarkable exam. CT ABDOMEN AND PELVIS: 1. Hepatic steatosis. 2. Small fat containing umbilical and supraumbilical ventral hernias. Dictated by: Dictated on workstation # [id number]
--- OUTSIDE RECORDS SUMMARY | 2016-12-31 09:48 | XMS REPORT | Continuity of Care Document ---
Author Author [facility] Organization [facility] Address Unknown Phone Unavailable Care Team Providers Care Sales Operations Analyst Name Role Phone No Pcp, Na PCP Unavailable Source Comments Some departments are not documenting in the electronic medical record. If you do not see the information that you expected, contact Release of Information in the Health Information Management department at [phone] for further assistance in locating additional records.[facility] Active Allergies and Adverse Reactions Allergen Noted [...] Date H/O hypotension 10/12/2015 Allergic rhinitis 10/12/2015 Social History Tobacco Use Types Packs/Day Years Used Date Never Smoker Alcohol Use Drinks/Week oz/Week Comments No 0 Standard 0.0 drinks or equivalent Last Filed Vital Signs Vital Sign Reading Time Taken Blood Pressure 108/78 05/17/2016 1:39 PM [employer] Pulse 96 05/17/2016 1:39 PM [employer] Temperature 36.8 C (98.2 F) 02/08/2016 10:11 AM CDT Respiratory Rate - - Height 1.753 m (5' 9") 05/17/2016 1:39 PM [employer] Weight 106.323 kg (234 lb 6.4 05/17/2016 1:39 PM [employer]EL[employer] oz) Body Mass Index 34.6 05/17/2016 1:39 PM [employer] Oxygen Saturation 98% 02/08/2016 6:51 AM CDT Plan of Care Health Maintenance Due Date Last Done Comments Physical (Comprehensive) 1989 Exam Pertussis Vaccine 1993 Tetanus Vaccine 1999 Cervical Cancer Screening 2003 Influenza Vaccine 03/07/2017 Results from Last 3 Months Not on file
--- OUTSIDE RECORDS SUMMARY | 2016-12-31 09:59 | XMS REPORT | Continuity of Care Document ---
Author Author [facility] Address Unknown Phone Unavailable Allergies Active Description Code Type Severity Reaction Onset Reported/Identified Relationship to Patient Clinical Status Yes codeine [id number] Drug Allergy Mild N/A 01/03/2009 Yes erythromycin base [id number] Drug Allergy Mild N/A 01/03/2009 Yes iodine [id number] Drug Allergy Mild N/A 01/03/2009 Yes metoclopramide [id number] Drug Allergy Mild N/A 01/03/2009 Yes prochlorperazine [id number] Drug Allergy Mild N/A 01/03/2009 Yes promethazine [id number] Drug Allergy Mild N/A 01/03/2009 Yes pneumococcal vaccine [id number] Drug Allergy Mild N/A 01/15/2009 Yes pseudoephedrine [id number] Drug Allergy Mild N/A 01/15/2009 Yes fludrocortisone [id number] Drug Allergy Severe CHF 03/05/2010 Yes dicyclomine [id number] Drug Allergy Mild RASH 03/05/2010 Yes ketorolac [id number] Drug Allergy Mild RASH 03/05/2010 Yes dicyclomine HCl [id number] Drug Allergy Unknown N/A 01/13/2015 Yes ibuprofen [id number] Drug Allergy Unknown N/A 01/13/2015 Yes ketorolac tromethamine [id number] Drug Allergy Unknown N/A 01/13/2015 Yes metoclopramide HCl [id number] Drug Allergy Unknown N/A 01/13/2015 Yes prochlorperazine edisylate [id number] Drug Allergy Unknown N/A 01/13/2015 Yes prochlorperazine maleate [id number] Drug Allergy Unknown N/ A 01/13/2015 Yes promethazine HCl [id number] Drug Allergy Unknown N/A 01/13/2015 Yes tramadol [id number] Drug Allergy Unknown N/A 01/13/2015 Yes codeine [...] DO, TANVIR K 599.70 HEMATURIA UNSPECIFIED 11/17/2012 BENOSN DO, TANVIR K 789.69 ABDOMINAL TENDERNESS OTHER [...] MULTIPLE AND UNSPECIFIED SITES WITHOUT INFECTION 06/23/2013 TANVIR BENSON DO K 787.01 NAUSEA WITH VOMITING [...] ABDOMINAL PAIN, UNSPECIFIED SITE 01/13/2015 ROSI MCGOWAN STRUCTURAL ENGINEERING TECHNICIAN Ot 250.00 01/13/2015 ROSI MCGOWAN STRUCTURAL ENGINEERING TECHNICIAN Ot 599.0 01/13/2015 ROSI MCGOWAN STRUCTURAL ENGINEERING TECHNICIAN Ot 724.5 01/13/2015 MICHELLE GALEAS MD Ot 787.01 01/13/2015 MICHELLE GALEAS MD Ot 787.91 01/13/2015 MICHELLE GALEAS MD Ot 789.01 01/13/2015 GUDELIA TREVINO, MICHELLE Goetz Ot 790.5 02/09/2015 LOGAN DO, POLLO K Ot 558.9 02/09/2015 LOGAN DO, POLLO K Ot 599.0 02/09/2015 LOGAN DO, POLLO K Ot 789.00 02/11/2015 ROSI MCGOWAN STRUCTURAL ENGINEERING TECHNICIAN Ot 250.00 02/11/2015 ROSI MCGOWAN STRUCTURAL ENGINEERING TECHNICIAN Ot 599.0 02/11/2015 ROSI MCGOWAN STRUCTURAL ENGINEERING TECHNICIAN Ot 599.70 08/05/2015 SUSHANT BE L Ot R00.0 TACHYCARDIA, UNSPECIFIED 08/05/2015 SUSHANT BE Ot R00.2 PALPITATIONS 08/05/2015 SUSHANT BE Ot R07.89 OTHER CHEST PAIN 08/05/2015 SUSHANT BE Ot Z86.79 PERSONAL HISTORY OF OTHER DISEASES OF TH 09/06/2015 ROSI MCGOWAN STRUCTURAL ENGINEERING TECHNICIAN Ot R00.0 TACHYCARDIA, UNSPECIFIED 09/08/2015 ROSI MCGOWAN STRUCTURAL ENGINEERING TECHNICIAN Ot R10.30 LOWER ABDOMINAL PAIN, UNSPECIFIED 09/08/2015 ROSI MCGOWAN STRUCTURAL ENGINEERING TECHNICIAN Ot R11.0 NAUSEA 09/08/2015 ROSI MCGOWAN STRUCTURAL ENGINEERING TECHNICIAN Ot R19.7 DIARRHEA, UNSPECIFIED 09/08/2015 ROSI MCGOWAN STRUCTURAL ENGINEERING TECHNICIAN Ot Z53.29 PROC/TRTMT NOT CRD OUT BEC [...] 01/26/2016 LOGAN WILKINS POLLO K Ot Z79.891 ROPE WALKER (CURRENT) USE OF OPIATE ANALGE 01/29/2016 ELLA FORD DOA K Ot R00.0 TACHYCARDIA, UNSPECIFIED 01/29/2016 ELLA FORD DOA Waqar Ot R07.89 OTHER CHEST PAIN 01/29/2016 POLLO FORD DO Ot R07.9 CHEST PAIN, UNSPECIFIED 01/29/2016 LOGAN WILKINS POLLO Waqar Ot Z79.891 [facility] (CURRENT) USE OF OPIATE ANALGE 02/08/2016 CICI TREVINO, JUAN Ortega Ot R00.0 TACHYCARDIA, UNSPECIFIED 02/08/2016 CICI TREVINO, JUAN Ortega Ot R11.2 NAUSEA WITH VOMITING, UNSPECIFIED 03/09/2016 MARIO ALBERTO RICHMOND DO Ot K52.9 NONINFECTIVE GASTROENTERITIS AND COLITIS 03/09/2016 MARIO ALBERTO RICHMOND DO Ot R10.84 GENERALIZED ABDOMINAL PAIN 03/09/2016 MARIO ALBERTO RICHMOND DO Ot R11.10 VOMITING, UNSPECIFIED 09/26/2016 ROSI MCGOWAN APRN Ot R00.0 TACHYCARDIA, UNSPECIFIED 09/26/2016 ROSI MCGOWAN APRN Ot R07.9 CHEST PAIN, UNSPECIFIED 09/26/2016 ROSI MCGOWAN APRN Ot Z53.29 PROC/TRTMT NOT CRD OUT BEC PT DECISION F 09/26/2016 ROSI MCGOWAN APRN Ot Z79.899 OTHER [facility] (CURRENT) DRUG THERAPY 09/27/2016 ROSI MCGOWAN APRN Ot R00.0 TACHYCARDIA, UNSPECIFIED 09/27/2016 ROSI MCGOWAN APRN Ot R07.9 CHEST PAIN, UNSPECIFIED 09/27/2016 ROSI MCGOWAN APRN Ot Z53.29 PROC/TRTMT NOT CRD OUT BEC PT DECISION F 09/27/2016 ROSI MCGOWAN APRN Ot Z79.899 OTHER [facility]OPE WALKER (CURRENT) DRUG THERAPY 09/28/2016 ROSI MCGOWAN APRN Ot R00.0 TACHYCARDIA, UNSPECIFIED 09/28/2016 ROSI MCGOWAN APRN Ot R07.9 CHEST PAIN, UNSPECIFIED 09/28/2016 ROSI MCGOWAN APRN Ot Z53.29 PROC/TRTMT NOT CRD OUT BEC PT DECISION F 09/28/2016 ROSI MCGOWAN APRN Ot Z79.899 OTHER [facility] (CURRENT) DRUG THERAPY Procedures Code Description [place] [address] UA LONG DIP 10/26 17801 URINE DRUG SCREEN (IN-HOUSE) 10/26/2012 25534 ROUTINE VENIPUNCTURE 10/27/2012 35058 CMP 10/27/2012 19338 LIPID PANEL 10/27 30219 CBC 10/27/2012 50854 ESR/SED RATE THYANA THYROID ANALYZER 10/27/2012 23769 UA LONG DIP 11/17 22891 CULTURE URINE 92005 UA LONG DIP 11/[address] ABDOMEN & PELVIS W/O CONTRAST 12/01/2012 97868 URINE DRUG SCREEN (IN-HOUSE) 12/24/2012 32569 PSYCH DIAG EVAL W/MED SRVCS 12/25/2012 35323 LYME EIA W/WEST BLOT 05/07/2013 69844 EHRLICHIA ANTIBODY 05/07/2013 91570 TULAREMIA ANTIBODY 05/07/2013 57087 ZENON TX SPOT FEVER 05/07/2013 05882 ROUTINE VENIPUNCTURE 06/24/2013 69742 CBC 06/24/2013 2176114 GFR CALC (RESULT ONLY) 06/24/2013 67121 CMP 06/24/2013 11305 DILANTIN 2012 75522 HEPATITIS PROFILE 06/25/2013 45067 LIPASE 2012 87632 A1C (IN-HOUSE) Results Test Result Range D-DIMER [...] Status Pt. Type Provider Facility Loc./Unit Complaint [id number] 08/11/2013 08:22:00 08/11/2013 23: 59:59 CLS Outpatient MICHELLE GALEAS MD [id number] 06/25/2013 09:18:00 06/25/2013 23: 59:59 CLS Outpatient MICHELLE GALEAS MD [id number] 06/24/2013 10:33:00 06/24/2013 23: 59:59 CLS Outpatient TANVIR BENSON DO [id number] 05/07/2013 11:13:00 05/07/2013 23: 59:59 CLS Outpatient TANVIR BENSON DO [id number] 04/14/2013 10:38:00 04/14/2013 23: 59:59 YEISON Outpatient TANVIR BENSON DO [id number] 03/17/2013 11:47:00 03/17/2013 23: 59:59 YEISON Outpatient TANVIR BENSON DO [id number] 03/01/2013 17:35:00 Document Registration [id number] 01/25/2013 14:59:00 Document Registration [id number] 12/24/2012 15:16:00 Document Registration [id number] 12/21/2012 16:02:00 Document Registration [id number] 12/15/2012 09:36:00 Document Registration [id number] 11/26/2012 14:40:00 Document Registration [id number] 11/17/2012 10:39:00 Document Registration [id number] 11/12/2012 11:42:00 Document Registration [id number] 11/03/2012 15:16:00 Document Registration [id number] 10/27/2012 10:39:00 Document Registration [id number] 10/26/2012 15:16:00 Document Registration
== END 2016-12-31 05:04 | disposition home or self-care (01) ==
LOC: EDUNIT# 03:11 → ER 03:14
DX: T81.31XA Disruption of external operation (surgical) wound, not elsewhere classified, initial encounter (principal); R07.89 Other chest pain; J45.909 Unspecified asthma, uncomplicated; I10 Essential (primary) hypertension; E11.9 Type 2 diabetes mellitus without complications; F41.9 Anxiety disorder, unspecified; F32.9 Major depressive disorder, single episode, unspecified; F43.10 Post-traumatic stress disorder, unspecified; Z86.79 Personal history of other diseases of the circulatory system; Z98.890 Other specified postprocedural states
CPT/HCPCS: 36415; 71010; 71275; 74177; 80053; 82150; 82550; 82553; 83690; 83735; 83880; 84484; 85025; 85379; 85610; 85730; 93005; 93041; 96374; 96375

== ENCOUNTER 2017-01-03 09:08 | Outpatient (RCR) | payer BC ==
[~2017-01-03 09:08] MED LIST changes: -METO-274 PO; +METO-395 PO; -METO200T32 PO; +METO200T4 PO
== END 2017-01-23 16:00 | disposition home or self-care (01) ==
LOC: WOUNDCARE 09:08
PROVIDERS: ATTEND Surgery
DX: L98.492 Non-pressure chronic ulcer of skin of other sites with fat layer exposed (principal); E11.622 Type 2 diabetes mellitus with other skin ulcer; I47.1 Supraventricular tachycardia; T81.31XA Disruption of external operation (surgical) wound, not elsewhere classified, initial encounter
CPT/HCPCS: 11042